=== PATIENT | female | born 1995 | race African-American/Black ===

== ENCOUNTER 2016-11-19 00:20 | Emergency (ER) | payer MEDICAID ==
[~2016-11-19] VITALS: Ht 175.3 cm; Wt 68.5 kg
[~2016-11-19 00:20] MED LIST: ADVAIR 250-501 EACH INH; ALBUTEROL2.5 MG/3 M INH; AZITHROMYCIN250 MG ORAL; BENADRYL50 MG ORAL; DILAUDID2 MG ORAL; DILAUDID4 MG ORAL; FOLIC ACID1 MG ORAL; GUIATUSS DM SY473 ML PO; IBUPROFEN800 MG ORAL; IMITREX50 MG ORAL; KEFLEX500 MG ORAL; LEVAQUIN500 MG ORAL; METHADONE HCL5 MG PO; NASONEX17 GM NASAL; NKM; NORCO 10-325 T1 EACH ORAL; VITAMIN B122500 MCG PO; VITAMIN D400 INTLU ORAL; ZOFRAN4 M1 ORAL; ZOLOFT100 MG ORAL
--- NOTE | 2016-11-19 00:53 | Emergency Room Report ---
History of Present Illness General Chief Complaint: Pain Source: Patient Present Illness HPI Patient presents with knee and body pain which is consistent with her being in sickle crisis. Pain started this morning. It is constant and also involves her back and other joints. Pain is 9/10, aching, not radiating. No trauma. No fevers. Took dilaudid 4 mg earlier with minimal relief. This is her usual sickle crisis pain. She feels dehydrated and feels fluids would help. She denies chest pain, dyspnea, productive cough, NVD, dysuria. She was last admitted August 2016 for similar symptoms. Unable to see her MD. Allergies: Coded Allergies: CODEINE (Verified Allergy, Severe, 07/05/16) Throat closes up and face swells, Spoke with patient has no allery to hydromorphone KETOROLAC (Verified Allergy, Severe, 07/05/16) Throat closes up and face swells Patient History Past Medical History: see triage record Social History: Denies: smoking Social History Narrative brought by MOM Last Menstrual Period: November Reviewed Nursing Documentation: PMH: Agreed, PSxH: Agreed Nursing Documentation-PMH Hx Cardiac Problems: Yes - sickle cell Hx Hypertension: No Hx Pacemaker: No Hx Asthma: Yes Hx COPD: No Hx Diabetes: No Hx Cancer: No Hx Gastrointestinal Problems: No Hx Dialysis: No Hx Neurological Problems: Yes Hx Cerebrovascular Accident: No Hx Transient Ischemic Attacks: Yes - 05/2016 Hx Dementia: No Hx Alzheimer's Disease: No Hx Parkinson's Disease: No Hx Meningitis: No Hx Encephalitis: No Hx Seizures: No Hx Epilepsy: No Hx Multiple Sclerosis: No Hx Cerebral Palsy: No Hx Amyotrophic Lat Sclerosis: No Hx Guillian-[place] Syndrome: No Hx Paralysis: No Hx Peripheral Neuropathy: No Hx Spinal Cord Injury: No Hx Head Trauma: No Hx Traumatic Brain Injury: No Hx Memory Loss: No Hx Concentration Difficulty: No Hx Tremors: No Hx Vertigo: No Hx Dizziness: No Hx Headaches: Yes Hx Weakness: Yes Review of Systems All Other Systems: negative except mentioned in HPI Physical Exam Vital Signs Date Time Temp Pulse Resp B/P Pulse Ox O2 Delivery O2 Flow Rate FiO2 11/19/16 00:29 98.2 77 16 107/63 95 Room Air Sp02 EP Interpretation: reviewed, normal General Appearance: well appearing, no apparent distress, GCS 15 Head: normocephalic Eyes: bilateral eye PERRL, bilateral eye scleral icterus ENT: moist mucus membranes Neck: supple Respiratory: lungs clear, normal breath sounds Cardiovascular #1: regular rate, rhythm Cardiovascular #2: 2+ radial (R) Gastrointestinal: normal inspection, normal bowel sounds, non tender, no mass, non-distended Musculoskeletal: back normal, gait/station normal, normal range of motion, other - no effusion or warmth L knee Neurologic: alert, oriented x3 Psychiatric: mood/affect normal Skin: warm/dry, pallor Medical Decision Making Diagnostic Impression: Primary Impression: Sickle cell crisis ER Course Patient presents with knee pain c/w sickle crisis. Ddx: sickle cell crisis, bone marrow failure, occult infection amongst others. Emergent evaluation with labs including retic and LDH, CXR. Treatment with IV hydration and analgesia. Labs with leukocytosis (usual), anemia (unchanged), increased retic and LDH. Patient better and wants to go home. I offered admission. Patient stable for outpatient observation and treatment. Laboratory Tests Test 11/19/16 01:03 11/19/16 02:40 Urine Color Pale yellow Urine Appearance Clear Urine pH 8 (4.5-8.0) Urine Specific [place] 1.010 (1.005-1.035) Urine Protein Negative (NEGATIVE) Urine Glucose (UA) Negative (NEGATIVE) Urine Ketones Negative (NEGATIVE) Urine Occult Blood 5+ (NEGATIVE) H Urine Nitrite Negative (NEGATIVE) Urine Bilirubin Negative (NEGATIVE) Urine Urobilinogen 1 MG/DL (0.0-1.0) H Urine Leukocyte Esterase 1+ (NEGATIVE) H Urine RBC 5-10 /HPF (0 - 2) H Urine WBC 2-4 /HPF (0 - 2) Urine Squamous Epithelial Cells Moderate /LPF (NONE/OCC) H Urine Bacteria Few /HPF (NONE) Urine HCG, Qualitative Negative Urine Opiates Screen Negative (NEGATIVE) Urine Barbiturates Screen Negative (NEGATIVE) Phencyclidine (PCP) Screen Negative (NEGATIVE) Urine Amphetamines Screen Negative (NEGATIVE) Urine Benzodiazepines Screen Negative (NEGATIVE) Urine Cocaine Screen Negative (NEGATIVE) Urine Marijuana (THC) Screen Positive (NEGATIVE) H White Blood Count 18.0 K/UL (4.8-10.8) H Red Blood Count 2.23 M/UL (4.20-5.40) L Hemoglobin 8.0 G/DL (12.0-16.0) L Hematocrit 22.1 % (37.0-47.0) L Mean Corpuscular Volume 99 FL (80-99) Mean Corpuscular Hemoglobin 35.8 PG (27.0-31.0) H Mean Corpuscular Hemoglobin Concent 36.1 G/DL (32.0-36.0) H Red Cell Distribution Width 18.7 % (11.6-14.8) H Platelet Count 305 K/UL (150-450) Mean Platelet Volume 6.2 FL (6.5-10.1) L Neutrophils (%) (Auto) % (45.0-75.0) Lymphocytes (%) (Auto) % (20.0-45.0) Monocytes (%) (Auto) % (1.0-10.0) Eosinophils (%) (Auto) % (0.0-3.0) Basophils (%) (Auto) % (0.0-2.0) Neutrophils % (Manual) Pending Lymphocytes % (Manual) Pending Platelet Estimate Pending Platelet Morphology Pending Reticulocyte Count 6.9 % (0.0-2.0) H Prothrombin Time 12.6 SEC (9.30-11.50) H Prothrombin Time INR 1.2 (0.9-1.1) H PTT 55 SEC (23-33) H Sodium Level 139 mEQ/L (135-145) Potassium Level 3.9 mEQ/L (3.4-4.9) Chloride Level 101 mEQ/L (98-107) Carbon Dioxide Level 25 mEQ/L (20-30) Anion Gap 13 (5-15) Blood Urea Nitrogen 9 mg/dL (7-23) Creatinine 0.4 mg/dL (0.5-0.9) L Estimate Glomerular Filtration Rate > 60 mL/min (>60) Glucose Level 103 mg/dL (74-106) Calcium Level 9.0 mg/dL (8.6-10.2) Total Bilirubin 2.4 mg/dL (0.0-1.2) H Direct Bilirubin 0.3 mg/dL (0.1-0.3) Aspartate Amino Transferase (AST) 47 U/L (5-40) H Alanine Aminotransferase (ALT) 42 U/L (3-33) H Alkaline Phosphatase 59 U/L (35-104) Lactate Dehydrogenase 316 U/L (135-230) H Total Protein 6.4 g/dL (6.6-8.7) L Albumin 4.2 g/dL (3.5-5.2) Globulin 2.2 g/dL Albumin/Globulin Ratio 1.9 (1.0-2.7) Lipase 38 U/L (< 60) Chest X-Ray Diagnostic Results EP Interpretation: Yes Findings: no consolidation, no effusion, no pneumothorax, other - portacath L Number of Views: 1 Last Vital Signs Date Time Temp Pulse Resp B/P Pulse Ox O2 Delivery O2 Flow Rate FiO2 11/19/16 04:50 98.4 80 19 105/71 100 Room Air Status: improved Disposition: HOME, SELF-CARE Condition: Improved Scripts Hydrocodone Bit/Acetaminophen 5-325* (NORCO 5-325*) 1 Each Tablet 1 TAB ORAL Q6H Y for For Pain, #10 TAB 0 Refills Prov: Steve Alejandre M.D. 11/19/16 Steve Alejandre M.D. Nov 19, 2016 00:53
[2016-11-19 01:00] VITALS: BP 110/66
[2016-11-19] MEDS ORDERED: HYDROmorphone 1mg/ml Carpuject IVP ONE ×2 (01:00→03:30)
[2016-11-19] MEDS ORDERED: DiphenhydrAMINE 50mg/ml Inj IVP ONE (01:00)
[2016-11-19 01:24] LABS: APPEARANCE,URINE CLEAR; KETONES,URINE NEGATIVE (NEGATIVE); LEUKOCYTE ESTERASE ,URINE 1+ (NEGATIVE); NITRITE,URINE NEGATIVE (NEGATIVE); PH,URINE 8 (4.5-8.0); PROTEIN,URINE NEGATIVE (NEGATIVE); UROBILINOGEN,URINE 1 MG/DL (0.0-1.0)
[2016-11-19 03:05] VITALS: BP 108/70
[2016-11-19 03:08] LABS: MEAN CORPUSCULAR HEMOGLOBIN 35.8 PG (27.0-31.0); MEAN CORPUSCULAR HGB CONC 36.1 G/DL (32.0-36.0); MEAN CORPUSCULAR VOLUME 99 FL (80-99); MEAN PLATELET VOLUME 6.2 FL (6.5-10.1); PLATELET COUNT 305 K/UL (150-450); RED BLOOD COUNT 2.23 M/UL (4.20-5.40); RED CELL DISTRIBUTION WIDTH 18.7 % (11.6-14.8)
[2016-11-19 03:26] LABS: INR 1.2 (0.9-1.1); PROTHROMBIN TIME 12.6 SEC (9.30-11.50)
[2016-11-19 03:29] LABS: BACTERIA,URINE FEW /HPF; SQUAMOUS EPITHELIAL CELL,UR MODERATE /LPF (NONE/OCC)
[2016-11-19 03:32] LABS: ALANINE AMINOTRANSFERASE 42 U/L (3-33); ALBUMIN/GLOBULIN RATIO 1.9 (1.0-2.7); ANION GAP 13 (5-15); ASPARTATE AMINO TRANSFERASE 47 U/L (5-40); CARBON DIOXIDE 25 mEQ/L (20-30); CHLORIDE 101 mEQ/L (98-107); CREATININE 0.4 mg/dL (0.5-0.9); GLOMERULAR FILTRATION RATE > 60 mL/min (>60); LACTATE DEHYDROGENASE 316 U/L (135-230); LIPASE 38 U/L (< 60); POTASSIUM 3.9 mEQ/L (3.4-4.9); SODIUM 139 mEQ/L (135-145); TOTAL PROTEIN 6.4 g/dL (6.6-8.7)
[2016-11-19 03:47] LABS: BILIRUBIN,DIRECT 0.3 mg/dL (0.1-0.3); HEMOLYSIS 11
[2016-11-19 04:27] LABS: RETICULOCYTE COUNT 6.9 % (0.0-2.0)
[2016-11-19] MEDS ORDERED: NORCO 5-325 TA1 EACH ORAL (04:36)
[2016-11-19 04:50] VITALS: BP 105/71
[2016-11-19 09:08] LABS: ANISOCYTOSIS 1+; BAND NEUTROPHILS % (MANUAL) 0 % (0-8); BASOPHILS % (MANUAL) 0 % (0-2); EOSINOPHILS % (MANUAL) 2 % (0-3); LYMPHOCYTES % (MANUAL) 35 % (20-45); NEUTROPHILS % (MANUAL) 57 % (45-75); PLATELET ESTIMATE ADEQUATE; PLATELET MORPHOLOGY NORMAL; TOTAL CELLS COUNTED 100
[2016-11-19 09:09] LABS: HYPOCHROMASIA 1+; SICKLE CELLS 1+
[2016-11-19 09:10] LABS: OVALOCYTES OCCASIONAL
[2016-11-19 09:11] LABS: POLYCHROMASIA OCCASIONAL
--- NOTE | 2016-11-19 10:48 | Diagnostic Imaging Report ---
Indication: Chest pain Technique: One view of the chest Comparison: 08/23/2016 Findings: Left chest port catheter is again demonstrated. Lungs and pleural space are clear. The heart size is upper limits normal. No significant change Impression: No acute process This agrees with the preliminary interpretation provided by the emergency room physician
[2016-11-22 11:17] LABS: OTHERS PATHOLOGIST COMMENT
[2016-12-21] MEDS ORDERED: MAGNESIUM OXID500 M2 PO (08:12)
== END 2016-11-19 04:50 | disposition home or self-care (01) ==
LOC: EMR 00:50
DX: D57.00 Hb-SS disease with crisis, unspecified (principal); Z88.6 Allergy status to analgesic agent; Z88.8 Allergy status to other drugs, medicaments and biological substances; J45.909 Unspecified asthma, uncomplicated; Z86.73 Personal history of transient ischemic attack (TIA), and cerebral infarction without residual deficits; R17 Unspecified jaundice
CPT/HCPCS: 36415; 71010; 80053; 80300; 81003; 81025; 82248; 83615; 83690; 85007; 85025; 85044; 85610; 85730; 96360; 96374; 96375; 99284; J1170; J1200; J2405

== ENCOUNTER 2016-11-29 16:00 | Emergency (ER) | payer MEDICAID ==
[~2016-11-29] VITALS: Ht 175.3 cm; Wt 68.0 kg
[~2016-11-29 16:00] MED LIST changes: +NORCO 5-325 TA1 EACH ORAL
[2016-11-29 16:21] VITALS: BP 114/62
[2016-11-29] MEDS ORDERED: HYDROmorphone 2 MG, DiphenhydrAMINE 25 MG in NS 55 ML IVPB ONE (16:30)
[2016-11-29] MEDS ORDERED: NS 55ml IV ONE (16:31)
[2016-11-29] MEDS ORDERED: DiphenhydrAMINE 50mg/ml Inj ONE (16:56)
[2016-11-29 16:59] LABS: BASOPHILS % (AUTO) 1.5 % (0.0-2.0); LYMPHOCYTES % (AUTO) 38.3 % (20.0-45.0); MEAN CORPUSCULAR HEMOGLOBIN 36.1 PG (27.0-31.0); MEAN CORPUSCULAR VOLUME 103 FL (80-99); MEAN PLATELET VOLUME 5.9 FL (6.5-10.1); MONOCYTES % (AUTO) 8.9 % (1.0-10.0); NEUTROPHILS % (AUTO) 50.3 % (45.0-75.0); PLATELET COUNT 330 K/UL (150-450); RED BLOOD COUNT 2.41 M/UL (4.20-5.40); RED CELL DISTRIBUTION WIDTH 19.3 % (11.6-14.8); WHITE BLOOD COUNT 14.5 K/UL (4.8-10.8)
[2016-11-29 17:13] LABS: ANION GAP 14 (5-15); CALCIUM 9.2 mg/dL (8.6-10.2); CARBON DIOXIDE 25 mEQ/L (20-30); CHLORIDE 103 mEQ/L (98-107); CREATININE 0.4 mg/dL (0.5-0.9); GLOMERULAR FILTRATION RATE > 60 mL/min (>60); HEMOLYSIS 9; POTASSIUM 4.1 mEQ/L (3.4-4.9); SODIUM 142 mEQ/L (135-145)
[2016-11-29] MEDS ORDERED: DiphenhydrAMINE 50mg/ml Inj IVP ONE (17:30)
[2016-11-29 18:44] LABS: RETICULOCYTE COUNT 5.3 % (0.0-2.0)
[2016-11-29 19:07] VITALS: BP 121/77
--- NOTE | 2016-12-01 07:03 | Emergency Room Report ---
History of Present Illness General Chief Complaint: Pain Source: Patient Present Illness HPI Patient presents with complaints of bodyache bilateral knee pain in line with her sickle cell crisis patient reports that she spoke to her Hemoccult just and was told to come to the emergency room As he was unable to see her in the office Patient has increased nausea Denies any vomiting or diarrhea denies any fevers chills pain is aching 03/14 patient reports previous history of sickle cell disease Allergies: Coded Allergies: CODEINE (Verified Allergy, Severe, 07/05/16) Throat closes up and face swells, Spoke with patient has no allery to hydromorphone KETOROLAC (Verified Allergy, Severe, 07/05/16) Throat closes up and face swells Patient History Past Medical History: see triage record Pertinent Family History: none Reviewed Nursing Documentation: PMH: Agreed, PSxH: Agreed Nursing Documentation-PMH Hx Cardiac Problems: Yes - sickle cell Hx Hypertension: No Hx Pacemaker: No Hx Asthma: Yes Hx COPD: No Hx Diabetes: No Hx Cancer: No Hx Gastrointestinal Problems: No Hx Dialysis: No Hx Neurological Problems: Yes Hx Cerebrovascular Accident: No Hx Transient Ischemic Attacks: Yes - 05/2016 Hx Dementia: No Hx Alzheimer's Disease: No Hx Parkinson's Disease: No Hx Meningitis: No Hx Encephalitis: No Hx Seizures: No Hx Epilepsy: No Hx Multiple Sclerosis: No Hx Cerebral Palsy: No Hx Amyotrophic Lat Sclerosis: No Hx Guillian-[place] Syndrome: No Hx Paralysis: No Hx Peripheral Neuropathy: No Hx Spinal Cord Injury: No Hx Head Trauma: No Hx Traumatic Brain Injury: No Hx Memory Loss: No Hx Concentration Difficulty: No Hx Tremors: No Hx Vertigo: No Hx Dizziness: No Hx Headaches: Yes Hx Weakness: Yes Review of Systems All Other Systems: negative except mentioned in HPI Physical Exam Vital Signs Date Time Temp Pulse Resp B/P Pulse Ox O2 Delivery O2 Flow Rate FiO2 11/29/16 16:11 98.1 86 20 114/62 96 Room Air Sp02 EP Interpretation: reviewed, normal General Appearance: well appearing, no apparent distress Head: normocephalic, atraumatic Eyes: bilateral eye EOMI, bilateral eye PERRL ENT: hearing grossly normal, normal pharynx, TMs + canals normal, uvula midline Neck: full range of motion, supple, no meningismus, no bony tend Respiratory: lungs clear, normal breath sounds, no rhonchi, no respiratory distress, no retraction, no accessory muscle use Cardiovascular #1: normal peripheral pulses, regular rate, rhythm, no edema, no gallop, no JVD, no murmur Gastrointestinal: normal bowel sounds, non tender, soft, no mass, no organomegaly, non-distended, no guarding, no hernia, no pulsatile mass, no rebound Genitourinary: no CVA tenderness Musculoskeletal: normal inspection Neurologic: oriented x3, responsive, garage helper III-XII nml as tested, motor strength/ tone normal, sensory intact Psychiatric: mood/affect normal Skin: normal color, no rash, warm/dry, palpation normal Lymphatic: normal inspection, no adenopathy Medical Decision Making Diagnostic Impression: Primary Impression: Sickle cell disease ER Course Multiple differentials considered, including but not limited to the my lysis sickle cell crisis, dehydration Patient's blood work shows improved findings compared to previous Patient had further hydration and pain and dressed Patient reports that she feels better and has follow up tomorrow with her her oncologist and is discharged for close outpatient followup Labs Test 11/29/16 16:30 White Blood Count 14.5 K/UL (4.8-10.8) Red Blood Count 2.41 M/UL (4.20-5.40) Hemoglobin 8.7 G/DL (12.0-16.0) Hematocrit 24.8 % (37.0-47.0) Mean Corpuscular Volume 103 FL (80-99) Mean Corpuscular Hemoglobin 36.1 PG (27.0-31.0) Mean Corpuscular Hemoglobin Concent 35.0 G/DL (32.0-36.0) Red Cell Distribution Width 19.3 % (11.6-14.8) Platelet Count 330 K/UL (150-450) Mean Platelet Volume 5.9 FL (6.5-10.1) Neutrophils (%) (Auto) 50.3 % (45.0-75.0) Lymphocytes (%) (Auto) 38.3 % (20.0-45.0) Monocytes (%) (Auto) 8.9 % (1.0-10.0) Eosinophils (%) (Auto) 1.0 % (0.0-3.0) Basophils (%) (Auto) 1.5 % (0.0-2.0) Reticulocyte Count 5.3 % (0.0-2.0) Sodium Level 142 mEQ/L (135-145) Potassium Level 4.1 mEQ/L (3.4-4.9) Chloride Level 103 mEQ/L (98-107) Carbon Dioxide Level 25 mEQ/L (20-30) Anion Gap 14 (5-15) Blood Urea Nitrogen 8 mg/dL (7-23) Creatinine 0.4 mg/dL (0.5-0.9) Estimat Glomerular Filtration Rate > 60 mL/min (>60) Glucose Level 76 mg/dL (74-106) Calcium Level 9.2 mg/dL (8.6-10.2) Last Vital Signs Date Time Temp Pulse Resp B/P Pulse Ox O2 Delivery O2 Flow Rate FiO2 11/29/16 19:07 98.1 81 20 121/77 100 Room Air Status: improved Disposition: HOME, SELF-CARE Condition: Improved Referrals: LEONARDO TELLO (PCP) Patient Instructions: Sickle Cell Anemia, Adult Additional Instructions: Patient is provided with the discharge instructions notified to follow up with primary doctor in the next 2-3 days otherwise return to the er with any worsening symptoms. Please note that this report is being documented using [employer] technology. This can lead to erroneous entry secondary to incorrect interpretation by the dictating instrument. TAYLOR PARSONS D.O. Dec 01, 2016 07:03
[2016-12-21] MEDS ORDERED: MAGNESIUM OXID500 M2 PO (08:12)
== END 2016-11-29 19:15 | disposition home or self-care (01) ==
LOC: EMR 16:30
DX: D57.00 Hb-SS disease with crisis, unspecified (principal); Z88.6 Allergy status to analgesic agent; J45.909 Unspecified asthma, uncomplicated; Z86.73 Personal history of transient ischemic attack (TIA), and cerebral infarction without residual deficits
CPT/HCPCS: 36415; 80048; 85025; 85044; 96374; 96375; 99284; J1170; J1200

== ENCOUNTER 2016-12-16 01:21 | Inpatient (IN) | payer MEDICAID ==
[~2016-12-16] VITALS: Ht 175.3 cm; Wt 69.9 kg
[2016-12-16] VITALS (7 sets, daily range): BP systolic 101–120; BP diastolic 51–77
[2016-12-16] MEDS ORDERED: HYDROmorphone 1 MG, DiphenhydrAMINE 25 MG in NS 55 ML IV ONE (01:30)
[2016-12-16] MEDS ORDERED: DiphenhydrAMINE 50mg/ml Inj ONE ×2 (01:58→03:14)
[2016-12-16] MEDS ORDERED: HYDROmorphone 1mg/ml Carpuject ONE ×2 (01:58→03:14)
[2016-12-16 02:26] LABS: MEAN CORPUSCULAR HGB CONC 34.7 G/DL (32.0-36.0); MEAN CORPUSCULAR VOLUME 107 FL (80-99); MEAN PLATELET VOLUME 6.2 FL (6.5-10.1); PLATELET COUNT 359 K/UL (150-450); RED CELL DISTRIBUTION WIDTH 20.2 % (11.6-14.8); WHITE BLOOD COUNT 18.9 K/UL (4.8-10.8)
[2016-12-16 02:37] LABS: ALANINE AMINOTRANSFERASE 37 U/L (3-33); ALBUMIN/GLOBULIN RATIO 1.5 (1.0-2.7); ANION GAP 13 (5-15); ASPARTATE AMINO TRANSFERASE 45 U/L (5-40); CALCIUM 8.9 mg/dL (8.6-10.2); CARBON DIOXIDE 24 mEQ/L (20-30); CHLORIDE 102 mEQ/L (98-107); CREATININE 0.4 mg/dL (0.5-0.9); GLOMERULAR FILTRATION RATE > 60 mL/min (>60); HEMOLYSIS 16; POTASSIUM 4.4 mEQ/L (3.4-4.9); SODIUM 139 mEQ/L (135-145); TOTAL PROTEIN 6.7 g/dL (6.6-8.7)
[2016-12-16] MEDS ORDERED: cefOXitin 2gm Inj IVP SCH (02:45)
[2016-12-16] MEDS ORDERED: Albuterol ud Inhalation HHN ONE (02:45)
[2016-12-16] MEDS ORDERED: Azithromycin 500 MG in NS 275 ML IV ONE (02:45)
[2016-12-16] MEDS ORDERED: Azithromycin Inj IV ONE (02:48)
[2016-12-16] MEDS ORDERED: cefOXitin Sod 2 GM in D5W 110 ML IVPB STA (02:54)
[2016-12-16] MEDS ORDERED: HYDROmorphone 2 MG, DiphenhydrAMINE 25 MG in NS 55 ML IVPB ONE (03:00)
[2016-12-16 03:07] LABS: BILIRUBIN,DIRECT 0.4 mg/dL (0.1-0.3)
[2016-12-16 03:31] LABS: RETICULOCYTE COUNT 9.7 % (0.0-2.0)
--- NOTE | 2016-12-16 03:39 | Emergency Room Report ---
History of Present Illness General Chief Complaint: Pain Source: Patient Present Illness HPI 21YOF with known SCD presents with 2-3 days subjective fever/chills, cough, chest pain. Compliant with medication. Not taking anything for cough. No foreign travel or sick contacts No other joint pain. Allergies: Coded Allergies: CODEINE (Verified Allergy, Severe, 07/05/16) Throat closes up and face swells, Spoke with patient has no allery to hydromorphone KETOROLAC (Verified Allergy, Severe, 07/05/16) Throat closes up and face swells Patient History Past Medical History: other - sickle cell disease Past Surgical History: none Pertinent Family History: none Social History: Denies: alcohol use, drug use, smoking Last Menstrual Period: 12/13/16 Now: No Immunizations: UTD Reviewed Nursing Documentation: PMH: Agreed, PSxH: Agreed Nursing Documentation-PMH Hx Cardiac Problems: Yes - sickle cell Hx Hypertension: No - enlarged heart, heart murmur, TIA Hx Pacemaker: No Hx Asthma: Yes Hx COPD: No Hx Diabetes: No Hx Cancer: No Hx Gastrointestinal Problems: No Hx Dialysis: No Hx Neurological Problems: Yes Hx Cerebrovascular Accident: No Hx Transient Ischemic Attacks: Yes - 05/2016 Hx Dementia: No Hx Alzheimer's Disease: No Hx Parkinson's Disease: No Hx Meningitis: No Hx Encephalitis: No Hx Seizures: No Hx Epilepsy: No Hx Multiple Sclerosis: No Hx Cerebral Palsy: No Hx Amyotrophic Lat Sclerosis: No Hx Guillian-[place] Syndrome: No Hx Paralysis: No Hx Peripheral Neuropathy: No Hx Spinal Cord Injury: No Hx Head Trauma: No Hx Traumatic Brain Injury: No Hx Memory Loss: No Hx Concentration Difficulty: No Hx Tremors: No Hx Vertigo: No Hx Dizziness: No Hx Headaches: Yes Hx Weakness: Yes Review of Systems All Other Systems: negative except mentioned in HPI Physical Exam Vital Signs Date Time Temp Pulse Resp B/P Pulse Ox O2 Delivery O2 Flow Rate FiO2 12/16/16 01:27 98.4 80 26 125/46 94 Room Air 12/16/16 02:17 5.0 Sp02 EP Interpretation: reviewed, normal General Appearance: normal inspection, well appearing, no apparent distress, alert, GCS 15, non-toxic, mild distress, other - Coughing, shaking in stretcher Head: normocephalic, atraumatic Eyes: bilateral eye EOMI, bilateral eye PERRL ENT: normal ENT inspection, hearing grossly normal, normal voice Neck: normal inspection, full range of motion, supple, no bony tend Respiratory: normal inspection, lungs clear, normal breath sounds, no rhonchi, no respiratory distress, no retraction, no accessory muscle use, wheezing Cardiovascular #1: regular rate, rhythm, no edema Gastrointestinal: normal inspection, normal bowel sounds, non tender, soft, no guarding, no hernia Genitourinary: no CVA tenderness Musculoskeletal: normal inspection, back normal, normal range of motion, Ignacio' s Sign negative Neurologic: normal inspection, alert, oriented x3, responsive, ammonia solution preparer III-XII nml as tested, DTRs symmetric, speech normal Psychiatric: normal inspection, judgement/insight normal, mood/affect normal Skin: normal inspection, normal color, no rash Lymphatic: normal inspection Medical Decision Making Diagnostic Impression: Primary Impression: Sickle cell anemia with pain ER Course 21YOF with cough, SOB, and subjective fevers at home. Concern for acute chest syndrome, PNA Labs: Leuks 18K, increase from previous. H&H stable. Retic count c/w previous. Elevated LFTs also seen previously. CXR: No obvious lobar PNA Blood Cx pending Empiric Cefox/Azithromycin given in ED Albuterol given for cough Required repeated analgesia. My threshold for sickle cell patients and narcotics given in ED is 2 doses. Patient exceeded this demand and thus requires admission. PMD is Dr Soto. Dr Metz admits for Dr Soto in ED. Was endorses for med/ surg admission at 345am. Rhythm Strip Diag. Results EP Interpretation: yes Rate: 77 Rhythm: NSR, no PVC's Chest X-Ray Diagnostic Results EP Interpretation: Yes Findings: no consolidation, no effusion, no pneumothorax, no acute cardiopulmonary disease Number of Views: 1 Last Vital Signs Date Time Temp Pulse Resp B/P Pulse Ox O2 Delivery O2 Flow Rate FiO2 12/16/16 03:24 76 17 100 Room Air 12/16/16 03:14 5.0 12/16/16 02:43 98.5 12/16/16 02:17 108/61 Referrals: LILIAM GUIDRY M.D. (PCP) DEJAN CHAN M.D. Dec 16, 2016 03:39
[2016-12-16] MEDS ORDERED: advair INH (05:50)
[2016-12-16] MEDS ORDERED: LORazepam Inj 2mg/ml 1ml IV PRN (07:15)
[2016-12-16] MEDS ORDERED: Zolpidem 5mg tab ORAL PRN (07:15)
[2016-12-16] MEDS ORDERED: Miralax 17gm pkt ORAL PRN (07:15)
[2016-12-16] MEDS ORDERED: Mylanta II UD 30ml ORAL PRN (07:15)
[2016-12-16] MEDS: DiphenhydrAMINE 50mg/ml Inj IVP PRN ×4 (08:41→23:59)
[2016-12-16] MEDS: Sertraline 100mg tab ORAL SCH (08:41)
[2016-12-16] MEDS: Heparin 5000 units/ml inj SUBQ SCH ×2 (08:48→20:38)
[2016-12-16] MEDS: HYDROmorphone 4mg tab ORAL SCH ×5 (08:57→20:00)
--- NOTE | 2016-12-16 10:47 | Diagnostic Imaging Report ---
Indication: SOB Technique: One view of the chest Comparison: 11/19/2016 Findings: Left chest port catheter is again demonstrated. Lungs and pleural spaces remain clear. The heart size is normal. Impression: No acute process
--- NOTE | 2016-12-16 12:48 | Consultation ---
History of Present Illness General Date patient seen: Dec 16, 2016 Chief Complaint: Pain Referring physician: Dr. triplett Reason for Consultation: dyspnea Present Illness HPI 21 year old female with hx of sickle cell disease, recurrent hospitalization presents with 2-3 days of subjective fever/chills, cough, chest pain. Compliant with medication. she has greenish phlegm. Her CXR was negative. Allergies: Coded Allergies: CODEINE (Verified Allergy, Severe, 07/05/16) Throat closes up and face swells, Spoke with patient has no allery to hydromorphone KETOROLAC (Verified Allergy, Severe, 07/05/16) Throat closes up and face swells Medication History Scheduled Cyanocobalamin (Vitamin B-12) (Vitamin B12), 2,500 MCG PO DAILY, (Reported) Folic Acid* (Folic Acid*), 1 MG ORAL DAILY, (Reported) Hydromorphone HCl (Dilaudid), 4 MG ORAL Q4H, (Reported) Ibuprofen* (Motrin*), 800 MG ORAL Q8H, (Reported) Methadone Hcl* (Methadone*), 5 MG PO BID, (Reported) Mometasone Furoate (Nasonex), Unknown Dose NASAL DAILY, (Reported) Sertraline Hcl* (Zoloft*), 100 MG ORAL DAILY, (Reported) Sumatriptan Succinate* (Imitrex*), Unknown Dose ORAL DAILY PRN MIGRAINE, ( Reported) Vitamin D (Vitamin D3), 400 UNITS ORAL DAILY, (Reported) [advair], INH BID, (Reported) Scheduled PRN Albuterol Sulfate* (Albuterol Sulfate Hhn*), Unknown Dose INH Q4H PRN for Shortness of Breath, (Reported) Diphenhydramine HCl (Diphenhydramine HCl), 50 MG ORAL Q6H PRN for Itching, ( Reported) Ondansetron (Zofran), 4 MG ORAL Q6H PRN for Nausea & Vomiting, (Reported) Discontinued Medications Hydrocodone Bit/Acetaminophen 5-325* ([place] 5-325*), 1 TAB ORAL Q6H PRN for For Pain Discontinued Reason: Therapy completed Methadone Hcl* (Methadone*), 2 MG PO QHS, (Reported) Discontinued Reason: Medication dose changed Patient History Healthcare decision maker Resuscitation status Full Code Advanced Directive on File No Past Medical/Surgical History Past Medical/Surgical History: (1) Sickle cell disease (2) Intractable pain Review of Systems Respiratory: Reports: cough Physical Exam General Appearance: WD/WN, no apparent distress Lines, tubes and drains: peripheral HEENT: normocephalic, atraumatic Neck: non-tender, normal alignment Respiratory/Chest: chest wall non-tender, lungs clear Cardiovascular/Chest: normal peripheral pulses, normal rate Abdomen: normal bowel sounds, non tender Genitourinary/Rectal: normal genital exam Extremities: normal range of motion Skin Exam: normal pigmentation Last 24 Hour Vital Signs Date Time Temp Pulse Resp B/P Pulse Ox O2 Delivery O2 Flow Rate FiO2 12/16/16 08:00 97.9 74 18 110/77 Room Air 12/16/16 05:10 98.1 70 19 106/51 94 Room Air 12/16/16 04:43 98.1 76 17 101/51 95 Room Air 12/16/16 04:43 76 17 101/51 95 Room Air 12/16/16 03:50 98.5 12/16/16 03:24 76 17 100 Room Air 12/16/16 03:14 75 17 98 Simple Mask 5.0 12/16/16 03:13 75 17 Simple Mask 5.0 12/16/16 02:43 98.5 12/16/16 02:17 71 19 108/61 98 Simple Mask 5.0 12/16/16 01:27 98.4 80 26 125/46 94 Room Air Intake and Output 12/15/16 12/16/16 19:00 07:00 Intake Total 223.0 ml Balance 223.0 ml Intake IV Total 223.0 ml # Voids 1 Laboratory Tests Test 12/16/16 02:10 White Blood Count 18.9 K/UL (4.8-10.8) H Red Blood Count 2.50 M/UL (4.20-5.40) L Hemoglobin 9.2 G/DL (12.0-16.0) L Hematocrit 26.6 % (37.0-47.0) L Mean Corpuscular Volume 107 FL (80-99) H Mean Corpuscular Hemoglobin 37.0 PG (27.0-31.0) H Mean Corpuscular Hemoglobin Concent 34.7 G/DL (32.0-36.0) Red Cell Distribution Width 20.2 % (11.6-14.8) H Platelet Count 359 K/UL (150-450) Mean Platelet Volume 6.2 FL (6.5-10.1) L Neutrophils (%) (Auto) % (45.0-75.0) Lymphocytes (%) (Auto) % (20.0-45.0) Monocytes (%) (Auto) % (1.0-10.0) Eosinophils (%) (Auto) % (0.0-3.0) Basophils (%) (Auto) % (0.0-2.0) Reticulocyte Count 9.7 % (0.0-2.0) H Sodium Level 139 mEQ/L (135-145) Potassium Level 4.4 mEQ/L (3.4-4.9) Chloride Level 102 mEQ/L (98-107) Carbon Dioxide Level 24 mEQ/L (20-30) Anion Gap 13 (5-15) Blood Urea Nitrogen 7 mg/dL (7-23) Creatinine 0.4 mg/dL (0.5-0.9) L Estimat Glomerular Filtration Rate > 60 mL/min (>60) Glucose Level 131 mg/dL (74-106) H Calcium Level 8.9 mg/dL (8.6-10.2) Total Bilirubin 3.0 mg/dL (0.0-1.2) H Direct Bilirubin 0.4 mg/dL (0.1-0.3) H Aspartate Amino Transf (AST/SGOT) 45 U/L (5-40) H Alanine Aminotransferase (ALT/SGPT) 37 U/L (3-33) H Alkaline Phosphatase 64 U/L (35-104) Total Protein 6.7 g/dL (6.6-8.7) Albumin 4.1 g/dL (3.5-5.2) Globulin 2.6 g/dL Albumin/Globulin Ratio 1.5 (1.0-2.7) Height (Feet): 5 Height (Inches): 9.00 Weight (Pounds): 154 Medications Current Medications Medications (Trade) Dose Ordered Sig/Mando Route PRN Reason Start Time Stop Time Status Last Admin Dose Admin Acetaminophen (Tylenol) 650 mg Q4H PRN ORAL fever 12/16/16 07:15 01/15/17 07:14 Al Hydroxide/Mg Hydroxide (Mylanta II) 30 ml Q6H PRN ORAL dyspepsia 12/16/16 07:15 01/15/17 07:14 Dextrose (Dextrose 50%) STAT PRN IV Hypoglycemia 12/16/16 07:15 01/15/17 07:14 Diphenhydramine HCl 50 mg 50 mg Q4H PRN IVP Itching 12/16/16 08:30 01/15/17 08:29 12/16/16 08:41 Folic Acid (Folate) 1 mg DAILY ORAL 12/16/16 09:00 01/15/17 08:59 12/16/16 08:41 Heparin Sodium (Porcine) (Heparin 5000 units/ml) 5,000 units EVERY 12 HOURS SUBQ 12/16/16 09:00 01/15/17 08:59 12/16/16 08:48 Hydromorphone HCl (Dilaudid) 2 mg Q4H PRN IV pain 4-6 12/16/16 07:15 12/23/16 07:14 Hydromorphone HCl (Dilaudid) 4 mg Q4H ORAL 12/16/16 08:00 12/23/16 07:59 12/16/16 08:57 Hydromorphone HCl 3 mg 3 mg Q3H PRN IVP For Pain 7-10 12/16/16 07:15 12/23/16 07:14 12/16/16 11:39 Lorazepam (Ativan 2mg/ml 1ml) 0.5 mg Q4H PRN IV For Anxiety 12/16/16 07:15 12/23/16 07:14 Methadone HCl (Methadone HCl) 5 mg BID ORAL 12/16/16 09:00 12/23/16 08:59 12/16/16 08:41 Ondansetron HCl (Zofran) 4 mg Q6H PRN IVP Nausea & Vomiting 12/16/16 07:15 01/15/17 07:14 12/16/16 12:15 Piperacillin Sod/ Tazobactam Sod/ Sodium Chloride (Zosyn/Sodium Chloride) 100 ml @ 200 mls/hr EVERY 6 HOURS IVPB 12/16/16 18:00 12/23/16 17:59 UNV Polyethylene Glycol (Miralax) 17 gm HSPRN PRN ORAL Constipation 4/13/17 07:15 01/15/17 07:14 Sertraline HCl (Zoloft) 100 mg DAILY ORAL 12/16/16 09:00 01/15/17 08:59 12/16/16 08:41 Sodium Chloride (0.45% NS 1000ml) 1,000 ml @ 75 mls/hr [id number] IV 12/16/16 08:00 01/15/17 07:59 12/16/16 07:51 Zolpidem Tartrate (Ambien) 5 mg HSPRN PRN ORAL Insomnia 12/16/16 07:15 01/15/17 07:14 Assessment/Plan Problem List: (1) Bronchitis ICD Codes: J40 - Bronchitis, not specified as acute or chronic SNOMED: 71659874 (2) Upper respiratory infection ICD Codes: J06.9 - Acute upper respiratory infection, unspecified SNOMED: 14099156 (3) Sickle cell disease ICD Codes: D57.1 - Sickle-cell disease without crisis SNOMED: 260531218 Assessment/Plan IV antibiotics check sputum IV fluids JAVID BARNEY Dec 16, 2016 12:48
--- NOTE | 2016-12-16 15:40 | Consultation ---
Consult Note Assessment/Plan ID Dic # [id number] A: The patient is a 21-year-old female with leukocytosis improved hx of fever Chest x-ray NPAD Ch Abnl LFT hep B and C : neg HIV neg sickle cell crisis. Hx of cholecystectomy. Sickle cell disease. Bipolar disorder. Depression. Anemia. [id number] ( placed four years ago ) PLAN: patient on Zosyn d# 1 Blood cultures x2. Urine Cx : P Monitor chest x-ray. DORIAN ZEE M.D. Dec 16, 2016 15:40
--- NOTE | 2016-12-16 19:18 | History & Physical ---
History and Physical History & Physicial Dictated for Int Med-Dr eMtz no. [id number]. CURTIS PARRISH Dec 16, 2016 19:18
--- NOTE | 2016-12-16 21:38 | Consultation ---
DATE OF CONSULTATION: 12/16/2016 INFECTIOUS DISEASE CONSULTATION CONSULTING PHYSICIAN: Yobany Trejo M.D. REFERRING PHYSICIAN: Scar Metz M.D. REASON FOR CONSULTATION: Evaluation of the patient for fever, leukocytosis, and antibiotic management. HISTORY OF PRESENT ILLNESS: The patient is a 21-year-old female with medical problems who is well known to our service from prior admission. The patient has a history of sickle cell disease and was admitted to this medical center due to increasing pain, subjective fever, and chest discomfort. The patient was found to have leukocytosis over 18,000 that has increased prior baseline white blood cells. The patient overall at the time of evaluation, was poor historian, however, she has been receiving pain medications. The patient was started on IV Zosyn. Infectious Diseases consultation was requested for further evaluation of the patient's antibiotic management. PAST MEDICAL HISTORY: 1. History of sickle cell disease. 2. History of left upper chest Disla catheter was placed 4 years ago. 3. History of chronic abnormal liver function tests with negative hepatitis B and C serology. 4. History of cholecystectomy. 5. History of bipolar disorder. 6. History of depression. 7. Anemia. ALLERGIES: Codeine. MEDICATIONS: Intravenous Zosyn. FAMILY HISTORY: Noncontributory. REVIEW OF SYSTEMS: Limited. Much of the information I was able to gather as mentioned above. PHYSICAL EXAMINATION: VITAL SIGNS: Temperature 96.6 degrees, blood pressure 130/74, pulse 86, and respiratory rate 18. HEENT: Mild pale conjunctivae. No icterus. NECK: Supple. CHEST: Coarse breathing sounds. HEART: S1 and S2. ABDOMEN: Soft and nontender. EXTREMITIES: No cyanosis. NEUROLOGICAL: Awake and lethargic. LABORATORY DATA: WBC of 18.9, hemoglobin 9.2, and platelets 259,000. UA, 5 to 10 white blood cells. BUN 7 and creatinine 0.4. AST 45, ALT 37, and alkaline phosphatase within normal range. Blood culture is pending. Chest x-ray, no acute process. ASSESSMENT: The patient is a 21-year-old female with multiple medical problems as mentioned above, who was been admitted to this medical center with subjective generalized pain and chest discomfort. The patient had leukocytosis most likely due to sickle cell crisis. The patient has a history of subjective fever. Since the hospitalization, the patient overall has been unremarkable. The patient also have abnormal liver function tests, which is chronic. At this time, the patient may benefit from empiric antibiotic treatment while the cultures are pending. If the patient stays afebrile, cautiously may be recommend 24 to 48 hours antibiotic treatment. PLAN: 1. The patient is on IV Zosyn for now. 2. Monitor CBC. 3. Monitor BMP. 4. Monitor chest x-ray. 5. Monitor cultures (blood and urine). 6. We will follow the patient's clinical course and labs and will do further recommendation. Thank you, Dr. Beck, for allowing me to participate in the care of this patient. I will follow the patient with you during this hospitalization. Yobany Trejo M.D. DR: BENITEZ JOB#: [id number] CC:
--- NOTE | 2016-12-16 23:58 | History and Physical Report ---
DATE OF ADMISSION: 12/16/2016 CHIEF COMPLAINT: The patient is a 21-year-old female who presents with chief complaint of fever and chills. 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 The patient is followed in outpatient by Dr. Jt Bellamy. The patient states she has two to three-day history of subjective fevers and chills. The patient complains of cough. The patient also complains of pleuritic chest pain. The patient presented to [facility]. The patient was admitted for cough to rule out pneumonia. REVIEW OF SYSTEMS: Constitutional: The patient denies complains of subjective fevers and chills as above. The patient denies weight loss or weight gain. HEENT: The patient denies ear or throat pain. The patient denies headache. Cardiovascular: The patient complains of pleuritic chest pain as above. The patient denies palpitations. Chest: The patient complains of cough as above. The patient denies wheezes. Abdomen: The patient denies nausea, vomiting, diarrhea, or constipation. Genitourinary: The patient denies dysuria or frequency of urination. Neuromuscular: The patient denies seizure or generalized weakness. PAST MEDICAL HISTORY: Significant for sickle cell disease. She has history of cerebrovascular accident. PAST SURGICAL HISTORY: The patient denies. CURRENT MEDICATIONS: 1. Albuterol metered-dose inhaler two puffs p.o. q.i.d. p.r.n. 2. Vitamin B12 2500 mcg daily. 3. Benadryl 50 mg one tablet p.o. every six hours. 4. Folic acid 1 mg one tablet p.o. daily. 5. Dilaudid 4 mg one tablet p.o. every four hours. 6. Ibuprofen 800 mg one tablet p.o. q.8 h. 7. Methadone 5 mg one tablet p.o. twice daily. 8. Zofran 4 mg p.o. every six hours p.r.n. 9. Zoloft 100 mg one tablet p.o. daily. 10. Imitrex 50 mg one tablet p.o. daily p.r.n. migraine. 11. Vitamin D 400 units p.o. daily. 12. Advair 250/50 one puff p.o. twice daily. ALLERGIES: To codeine and Toradol. SOCIAL HISTORY: The patient is single and is disabled. The patient denies tobacco or alcohol use. PHYSICAL EXAMINATION: VITAL SIGNS: Temperature 98.1 to 98.6, respirations 17 to 18, pulse 70 to 76, and blood pressure 101 to 110 over 51 to 75. GENERAL: The patient is a well-developed and well-nourished female, in no apparent distress. HEENT: Eyes, pupils are equal and responsive to light and accommodation. Extraocular movements are intact. NECK: Supple without lymphadenopathy. CHEST: Lungs are clear to auscultation bilaterally without wheezes or rales. CARDIOVASCULAR: Regular rate. S1 and S2 normal without murmurs, rubs, or gallops. ABDOMEN: Soft, nontender, nondistended. Positive bowel sounds. No evidence of hepatosplenomegaly. Currently, no rebound or guarding noted. EXTREMITIES: Negative for clubbing, cyanosis, or edema. RECTAL/GENITAL: Refused. NEUROLOGIC: Cranial nerves II through XII grossly intact without focal deficits. Motor strength is 5/5 bilaterally. Deep tendon reflexes are 2+ plantar. LABORATORY STUDIES: WBC 18.9, hemoglobin 9.2, hematocrit 26.6, and platelets 259,000. Sodium 139, potassium 4.4, chloride 102, CO2 24, BUN 7, and creatinine 0.4. Glucose 131. Chest x-ray was reported as no acute disease. ASSESSMENT: This is a 21-year-old female with: 1. Cough. 2. Fever. 3. Leukocytosis. 4. Sickle cell disease. 5. History of cerebrovascular disease. TREATMENT: 1. Cough/fever/leukocytosis. Infectious disease consultation is obtained with Dr. Trejo. Blood and sputum cultures are pending. Urine cultures are pending. The patient has been started empirically on azithromycin and Zosyn. The patient has also been started on cefoxitin. 2. Sickle cell disease. The patient is currently receiving pain management with intravenous Dilaudid. We will follow recommendations of pain management. 3. History of cerebrovascular accident. Fermín Nunez M.D. DR: JENNA JOB#: [id number] CC:
[2016-12-17 00:28] VITALS: BP 109/66
[2016-12-17 04:00] VITALS: BP 108/63
[2016-12-17] MEDS: HYDROmorphone 4mg tab ORAL SCH ×3 (04:00→08:00)
[2016-12-17 06:35] LABS: MEAN CORPUSCULAR HEMOGLOBIN 36.6 PG (27.0-31.0); MEAN CORPUSCULAR HGB CONC 34.6 G/DL (32.0-36.0); MEAN CORPUSCULAR VOLUME 106 FL (80-99); MEAN PLATELET VOLUME 6.1 FL (6.5-10.1); PLATELET COUNT 322 K/UL (150-450); RED BLOOD COUNT 2.16 M/UL (4.20-5.40); RED CELL DISTRIBUTION WIDTH 22.6 % (11.6-14.8); WHITE BLOOD COUNT 14.2 K/UL (4.8-10.8)
[2016-12-17] MEDS: DiphenhydrAMINE 50mg/ml Inj IVP PRN ×2 (06:40→15:09)
[2016-12-17 06:43] LABS: MAGNESIUM 1.5 mg/dL (1.7-2.5)
[2016-12-17 06:47] LABS: ALANINE AMINOTRANSFERASE 37 U/L (3-33); ALBUMIN/GLOBULIN RATIO 1.3 (1.0-2.7); ANION GAP 11 (5-15); ASPARTATE AMINO TRANSFERASE 49 U/L (5-40); CALCIUM 8.8 mg/dL (8.6-10.2); CARBON DIOXIDE 25 mEQ/L (20-30); CHLORIDE 105 mEQ/L (98-107); CREATININE 0.4 mg/dL (0.5-0.9); GLOMERULAR FILTRATION RATE > 60 mL/min (>60); HEMOLYSIS 17; POTASSIUM 4.6 mEQ/L (3.4-4.9); SODIUM 141 mEQ/L (135-145); TOTAL PROTEIN 6.4 g/dL (6.6-8.7)
[2016-12-17 06:56] LABS: LACTATE DEHYDROGENASE 391 U/L (135-230)
--- NOTE | 2016-12-17 07:47 | Pulmonology Progress Note ---
Assessment/Plan Assessment/Plan ASSESSMENT bronchitis URI sickle cell disease, possible sickle cell crisis anemia elevated transaminase ( chronic) hypomagnesemia PLAN OF CARE MS floor IVF O2 HHN prn sputum cx empiric abx antitussive prn CXR negative pain management monitor HH. goal to keep Hgb above 7 check LDH monitor LFT , elevated LFT likely 2 to increased hemolysis ( chronic) replace Mg nutritional support case discussed and evaluated by supervising physician Subjective Allergies: Coded Allergies: CODEINE (Verified Allergy, Severe, 07/05/16) Throat closes up and face swells, Spoke with patient has no allery to hydromorphone KETOROLAC (Verified Allergy, Severe, 07/05/16) Throat closes up and face swells Subjective leukocytosis trending down, afebrile on RA sat stable denies SOB, chest pain, cough HH trending down Objective Last 24 Hour Vital Signs Date Time Temp Pulse Resp B/P Pulse Ox O2 Delivery O2 Flow Rate FiO2 12/17/16 07:11 97.6 12/17/16 04:00 97.6 71 18 108/63 93 Room Air 12/17/16 00:59 97.8 12/17/16 00:28 97.8 70 19 109/66 94 Room Air 12/16/16 20:00 98.2 68 18 110/60 93 Room Air 12/16/16 16:00 97.5 72 17 120/71 94 Room Air 12/16/16 12:00 96.6 74 18 113/75 95 Room Air 12/16/16 08:00 97.9 74 18 110/77 91 Room Air Intake and Output 12/16/16 12/17/16 19:00 07:00 Intake Total 1145 ml 595 ml Balance 1145 ml 595 ml Intake Oral 420 ml 120 ml IV Total 725 ml 475 ml # Voids 2 General Appearance: WD/WN, no acute distress, other - A/A/O x 3 female HEENT: normocephalic, atraumatic, anicteric, mucous membranes moist Respiratory/Chest: lungs clear - with mdoerate air entry , no respiratory distress, no accessory muscle use Cardiovascular: normal rate, regular rhythm Abdomen: normal bowel sounds, soft, non tender, non distended Genitourinary: normal external genitalia Extremities: no edema, pedal pulses normal Neurologic/Psychiatric: no motor/sensory deficits, alert, oriented x 3, responsive Musculoskeletal: normal muscle bulk Microbiology Date/Time Source Procedure Growth Status 12/16/16 13:23 Sputum Gram Stain Pending Resulted 12/16/16 13:23 Sputum Sputum Culture - Preliminary Resulted Laboratory Tests 12/17/16 05:30: White Blood Count 14.2H, Red Blood Count 2.16L, Hemoglobin 7.9L, Hematocrit 22.8L, Mean Corpuscular Volume 106H, Mean Corpuscular Hemoglobin 36.6H, Mean Corpuscular Hemoglobin Concent 34.6, Red Cell Distribution Width 22.6H, Platelet Count 322, Mean Platelet Volume 6.1L, Neutrophils (%) (Auto) , Lymphocytes (%) (Auto) , Monocytes (%) (Auto) , Eosinophils (%) (Auto) , Basophils (%) (Auto) , Neutrophils % (Manual) [Pending], Lymphocytes % (Manual) [Pending], Platelet Estimate [Pending], Platelet Morphology [Pending], Sodium Level 141, Potassium Level 4.6, Chloride Level 105, Carbon Dioxide Level 25, Anion Gap 11, Blood Urea Nitrogen 5L, Creatinine 0.4L, Estimat Glomerular Filtration Rate > 60, Glucose Level 92, Calcium Level 8.8, Phosphorus Level 4.0 , Magnesium Level 1.5L, Total Bilirubin 3.1H, Direct Bilirubin 0.4H, Aspartate Amino Transf (AST/SGOT) 49H, Alanine Aminotransferase (ALT/SGPT) 37H, Alkaline Phosphatase 59, Lactate Dehydrogenase 391H, Total Protein 6.4L, Albumin 3.7, Globulin 2.7, Albumin/Globulin Ratio 1.3 Current Medications Medications (Trade) Dose Ordered Sig/Mando Route PRN Reason Start Time Stop Time Status Last Admin Dose Admin Acetaminophen (Tylenol) 650 mg Q4H PRN ORAL fever 12/16/16 07:15 01/15/17 07:14 Al Hydroxide/Mg Hydroxide (Mylanta II) 30 ml Q6H PRN ORAL dyspepsia 12/16/16 07:15 01/15/17 07:14 Dextrose (Dextrose 50%) STAT PRN IV Hypoglycemia 12/16/16 07:15 01/15/17 07:14 Diphenhydramine HCl 50 mg 50 mg Q4H PRN IVP Itching 12/16/16 08:30 01/15/17 08:29 12/17/16 06:40 Folic Acid (Folate) 1 mg DAILY ORAL 12/16/16 09:00 01/15/17 08:59 12/16/16 08:41 Heparin Sodium (Porcine) (Heparin 5000 units/ml) 5,000 units EVERY 12 HOURS SUBQ 12/16/16 09:00 01/15/17 08:59 12/16/16 20:38 Hydromorphone HCl (Dilaudid) 2 mg Q4H PRN IV pain 4-6 12/16/16 07:15 12/23/16 07:14 Hydromorphone HCl (Dilaudid) 4 mg Q4H ORAL 12/16/16 08:00 12/23/16 07:59 12/17/16 00:00 Hydromorphone HCl 3 mg 3 mg Q3H PRN IVP For Pain 7-10 12/16/16 07:15 12/23/16 07:14 12/17/16 06:41 Lorazepam (Ativan 2mg/ml 1ml) 0.5 mg Q4H PRN IV For Anxiety 12/16/16 07:15 12/23/16 07:14 Magnesium Sulfate (Magnesium Sulfate 1gm/100ml) 100 ml @ 100 mls/hr Q1H IVPB 12/17/16 07:30 12/17/16 09:29 UNV Methadone HCl (Methadone HCl) 5 mg BID ORAL 12/16/16 09:00 12/23/16 08:59 12/16/16 17:27 Ondansetron HCl (Zofran) 4 mg Q6H PRN IVP Nausea & Vomiting 12/16/16 07:15 01/15/17 07:14 12/17/16 03:15 Piperacillin Sod/ Tazobactam Sod 3.375 gm/Sodium Chloride 100 ml @ 25 mls/hr Q8H IVPB 12/16/16 16:00 12/23/16 15:59 12/17/16 00:00 Polyethylene Glycol (Miralax) 17 gm HSPRN PRN ORAL Constipation 12/16/16 07:15 01/15/17 07:14 Sertraline HCl (Zoloft) 100 mg DAILY ORAL 12/16/16 09:00 01/15/17 08:59 12/16/16 08:41 Sodium Chloride (0.45% NS 1000ml) 1,000 ml @ 75 mls/hr [id number] IV 12/16/16 08:00 01/15/17 07:59 12/17/16 00:10 Zolpidem Tartrate (Ambien) 5 mg HSPRN PRN ORAL Insomnia 12/16/16 07:15 01/15/17 07:14 Gerardo ([facility])Mely NP Dec 17, 2016 07:47
[2016-12-17] MEDS ORDERED: Guaifenesin/DM 10ml syrup ORAL PRN (08:30)
[2016-12-17] MEDS: Sertraline 100mg tab ORAL SCH (08:58)
[2016-12-17 09:00] VITALS: BP 121/63
[2016-12-17] MEDS: Heparin 5000 units/ml inj SUBQ SCH ×2 (09:05→21:23)
[2016-12-17] MEDS ORDERED: HYDROmorphone 4mg tab ORAL PRN ×2 (10:30→12:00)
[2016-12-17 11:19] LABS: BILIRUBIN,DIRECT 0.4 mg/dL (0.1-0.3)
[2016-12-17 12:00] VITALS: BP 130/80
[2016-12-17] MEDS ORDERED: DuoNeb 0.5-3(2.5)mg/3ml neb HHN PRN (12:00)
[2016-12-17 12:09] LABS: ANISOCYTOSIS 2+; BAND NEUTROPHILS % (MANUAL) 0 % (0-8); BASOPHILS % (MANUAL) 0 % (0-2); EOSINOPHILS % (MANUAL) 4 % (0-3); HYPOCHROMASIA 1+; LYMPHOCYTES % (MANUAL) 21 % (20-45); MACROCYTES 1+; NEUTROPHILS % (MANUAL) 62 % (45-75); NUCLEATED RED BLOOD CELLS 1 /100 WBC; PLATELET ESTIMATE ADEQUATE; PLATELET MORPHOLOGY NORMAL; SICKLE CELLS 2+; TOTAL CELLS COUNTED 100
[2016-12-17 12:10] LABS: POLYCHROMASIA 1+
[2016-12-17] MEDS ORDERED: NS 55ml IV ONE (13:47)
[2016-12-17 16:00] VITALS: BP 125/63
--- NOTE | 2016-12-17 19:09 | Infectious Diseases Prog Note ---
Assessment/Plan Assessment/Plan A: The patient is a 21-year-old female with leukocytosis improved hx of fever Chest x-ray NPAD Ch Abnl LFT hep B and C : neg HIV neg sickle cell crisis. Hx of cholecystectomy. Sickle cell disease. Bipolar disorder. Depression. Anemia. [id number] ( placed four years ago ) PLAN: patient on Zosyn d# 2 Blood cultures x2. Urine Cx : P Monitor chest x-ray. Subjective Constitutional: Denies: anorexia, chills, drenching sweats, fatigue, fever, no symptoms, other Allergies: Coded Allergies: CODEINE (Verified Allergy, Severe, 07/05/16) Throat closes up and face swells, Spoke with patient has no allery to hydromorphone KETOROLAC (Verified Allergy, Severe, 07/05/16) Throat closes up and face swells Objective Vital Signs Last 24 Hour Vital Signs Date Time Temp Pulse Resp B/P Pulse Ox O2 Delivery O2 Flow Rate FiO2 12/17/16 16:00 97.7 77 18 125/63 93 Room Air 12/17/16 12:00 97.2 80 17 130/80 93 Simple Mask 2.0 12/17/16 09:00 98.1 63 17 121/63 93 Simple Mask 2.0 12/17/16 07:30 73 16 Room Air 12/17/16 07:11 97.6 12/17/16 04:00 97.6 71 18 108/63 93 Room Air 12/17/16 00:59 97.8 12/17/16 00:28 97.8 70 19 109/66 94 Room Air 12/16/16 20:00 98.2 68 18 110/60 93 Room Air Height (Feet): 5 Height (Inches): 9.00 Weight (Pounds): 154 HEENT: atraumatic Respiratory/Chest: normal breath sounds Cardiovascular: regular rhythm Abdomen: soft, non tender Microbiology Date/Time Source Procedure Growth Status 12/16/16 13:23 Sputum Gram Stain - Final Resulted 12/16/16 13:23 Sputum Sputum Culture - Preliminary Resulted Laboratory Tests Test 12/17/16 05:30 White Blood Count 14.2 K/UL (4.8-10.8) H Red Blood Count 2.16 M/UL (4.20-5.40) L Hemoglobin 7.9 G/DL (12.0-16.0) L Hematocrit 22.8 % (37.0-47.0) L Mean Corpuscular Volume 106 FL (80-99) H Mean Corpuscular Hemoglobin 36.6 PG (27.0-31.0) H Mean Corpuscular Hemoglobin Concent 34.6 G/DL (32.0-36.0) Red Cell Distribution Width 22.6 % (11.6-14.8) H Platelet Count 322 K/UL (150-450) Mean Platelet Volume 6.1 FL (6.5-10.1) L Neutrophils (%) (Auto) % (45.0-75.0) Lymphocytes (%) (Auto) % (20.0-45.0) Monocytes (%) (Auto) % (1.0-10.0) Eosinophils (%) (Auto) % (0.0-3.0) Basophils (%) (Auto) % (0.0-2.0) Differential Total Cells Counted 100 Neutrophils % (Manual) 62 % (45-75) Lymphocytes % (Manual) 21 % (20-45) Monocytes % (Manual) 13 % (1-10) H Eosinophils % (Manual) 4 % (0-3) H Basophils % (Manual) 0 % (0-2) Band Neutrophils 0 % (0-8) Nucleated Red Blood Cells 1 /100 WBC Platelet Estimate Adequate Platelet Morphology Normal Polychromasia 1+ Hypochromasia 1+ Anisocytosis 2+ Macrocytosis 1+ Sickle Cells 2+ H Sodium Level 141 mEQ/L (135-145) Potassium Level 4.6 mEQ/L (3.4-4.9) Chloride Level 105 mEQ/L (98-107) Carbon Dioxide Level 25 mEQ/L (20-30) Anion Gap 11 (5-15) Blood Urea Nitrogen 5 mg/dL (7-23) L Creatinine 0.4 mg/dL (0.5-0.9) L Estimat Glomerular Filtration Rate > 60 mL/min (>60) Glucose Level 92 mg/dL (74-106) Calcium Level 8.8 mg/dL (8.6-10.2) Phosphorus Level 4.0 mg/dL (2.5-4.8) Magnesium Level 1.5 mg/dL (1.7-2.5) L Total Bilirubin 3.1 mg/dL (0.0-1.2) H Direct Bilirubin 0.4 mg/dL (0.1-0.3) H Aspartate Amino Transf (AST/SGOT) 49 U/L (5-40) H Alanine Aminotransferase (ALT/SGPT) 37 U/L (3-33) H Alkaline Phosphatase 59 U/L (35-104) Lactate Dehydrogenase 391 U/L (135-230) H Total Protein 6.4 g/dL (6.6-8.7) L Albumin 3.7 g/dL (3.5-5.2) Globulin 2.7 g/dL Albumin/Globulin Ratio 1.3 (1.0-2.7) Current Medications Medications (Trade) Dose Ordered Sig/Mando Route PRN Reason Start Time Stop Time Status Last Admin Dose Admin Acetaminophen (Tylenol) 650 mg Q4H PRN ORAL fever 12/16/16 07:15 01/15/17 07:14 Al Hydroxide/Mg Hydroxide (Mylanta II) 30 ml Q6H PRN ORAL dyspepsia 12/16/16 07:15 01/15/17 07:14 Albuterol/ Ipratropium (DuoNeb 0.5-3(2.5)mg/3ml) 3 ml Q4H PRN HHN Shortness of Breath 12/17/16 12:00 12/22/16 11:59 Dextrose (Dextrose 50%) STAT PRN IV Hypoglycemia 12/16/16 07:15 01/15/17 07:14 Diphenhydramine HCl 50 mg 50 mg Q4H PRN IVP Itching 12/16/16 08:30 01/15/17 08:29 12/17/16 15:09 Folic Acid (Folate) 1 mg DAILY ORAL 12/16/16 09:00 01/15/17 08:59 12/17/16 08:59 Guaifenesin/ Dextromethorphan (Robitussin DM Syrup) 10 ml QID PRN ORAL For Cough 12/17/16 08:30 01/16/17 08:29 12/17/16 10:20 Heparin Sodium (Porcine) (Heparin 5000 units/ml) 5,000 units EVERY 12 HOURS SUBQ 12/16/16 09:00 01/15/17 08:59 12/17/16 09:05 Hydromorphone HCl (Dilaudid) 3 mg Q3H PRN IVP For Pain 7-10 12/17/16 10:15 12/24/16 10:14 12/17/16 18:37 Hydromorphone HCl (Dilaudid) 4 mg Q4H PRN ORAL Breakthrough Pain 12/17/16 12:00 12/24/16 11:59 Hydromorphone HCl 2 mg 2 mg Q4H PRN IV pain 4-6 12/16/16 07:15 12/23/16 07:14 Lorazepam (Ativan 2mg/ml 1ml) 0.5 mg Q4H PRN IV For Anxiety 12/16/16 07:15 12/23/16 07:14 Methadone HCl (Methadone HCl) 5 mg BID ORAL 12/16/16 09:00 12/23/16 08:59 12/17/16 17:03 Ondansetron HCl (Zofran) 4 mg Q6H PRN IVP Nausea & Vomiting 12/16/16 07:15 01/15/17 07:14 12/17/16 10:10 Piperacillin Sod/ Tazobactam Sod/ Sodium Chloride (Zosyn/Sodium Chloride) 100 ml @ 25 mls/hr Q8H IVPB 12/16/16 16:00 12/23/16 15:59 12/17/16 16:55 Polyethylene Glycol (Miralax) 17 gm HSPRN PRN ORAL Constipation 12/16/16 07:15 01/15/17 07:14 Prochlorperazine (Compazine) 10 mg Q6H PRN IVP N/V UNRELIEVED BY ZOFRAN 12/17/16 11:45 01/16/17 11:44 12/17/16 18:36 Sertraline HCl (Zoloft) 100 mg DAILY ORAL 12/16/16 09:00 01/15/17 08:59 12/17/16 08:58 Sodium Chloride (0.45% NS 1000ml) 1,000 ml @ 75 mls/hr [id number] IV 12/16/16 08:00 01/15/17 07:59 12/17/16 16:54 Zolpidem Tartrate (Ambien) 5 mg HSPRN PRN ORAL Insomnia 12/16/16 07:15 01/15/17 07:14 DORIAN ZEE M.D. Dec 17, 2016 19:09
--- NOTE | 2016-12-17 19:17 | Internal Med Progress Note ---
Subjective Date of Service: Dec 17, 2016 Physician Name Curtis Parrish Attending Physician Scar Metz MD Current Medications Medications (Trade) Dose Ordered Sig/Mando Route PRN Reason Start Time Stop Time Status Last Admin Dose Admin Acetaminophen (Tylenol) 650 mg Q4H PRN ORAL fever 12/16/16 07:15 01/15/17 07:14 Al Hydroxide/Mg Hydroxide (Mylanta II) 30 ml Q6H PRN ORAL dyspepsia 12/16/16 07:15 01/15/17 07:14 Albuterol/ Ipratropium (DuoNeb 0.5-3(2.5)mg/3ml) 3 ml Q4H PRN HHN Shortness of Breath 12/17/16 12:00 12/22/16 11:59 Dextrose (Dextrose 50%) STAT PRN IV Hypoglycemia 12/16/16 07:15 01/15/17 07:14 Diphenhydramine HCl 50 mg 50 mg Q4H PRN IVP Itching 12/16/16 08:30 01/15/17 08:29 12/17/16 15:09 Folic Acid (Folate) 1 mg DAILY ORAL 12/16/16 09:00 01/15/17 08:59 12/17/16 08:59 Guaifenesin/ Dextromethorphan (Robitussin DM Syrup) 10 ml QID PRN ORAL For Cough 12/17/16 08:30 01/16/17 08:29 12/17/16 10:20 Heparin Sodium (Porcine) (Heparin 5000 units/ml) 5,000 units EVERY 12 HOURS SUBQ 12/16/16 09:00 01/15/17 08:59 12/17/16 09:05 Hydromorphone HCl (Dilaudid) 3 mg Q3H PRN IVP For Pain 7-10 12/17/16 10:15 12/24/16 10:14 12/17/16 18:37 Hydromorphone HCl (Dilaudid) 4 mg Q4H PRN ORAL Breakthrough Pain 12/17/16 12:00 12/24/16 11:59 Hydromorphone HCl 2 mg 2 mg Q4H PRN IV pain 4-6 12/16/16 07:15 12/23/16 07:14 Lorazepam (Ativan 2mg/ml 1ml) 0.5 mg Q4H PRN IV For Anxiety 12/16/16 07:15 12/23/16 07:14 Methadone HCl (Methadone HCl) 5 mg BID ORAL 12/16/16 09:00 12/23/16 08:59 12/17/16 17:03 Ondansetron HCl (Zofran) 4 mg Q6H PRN IVP Nausea & Vomiting 12/16/16 07:15 01/15/17 07:14 12/17/16 10:10 Piperacillin Sod/ Tazobactam Sod/ Sodium Chloride (Zosyn/Sodium Chloride) 100 ml @ 25 mls/hr Q8H IVPB 12/16/16 16:00 12/23/16 15:59 12/17/16 16:55 Polyethylene Glycol (Miralax) 17 gm HSPRN PRN ORAL Constipation 12/16/16 07:15 01/15/17 07:14 Prochlorperazine (Compazine) 10 mg Q6H PRN IVP N/V UNRELIEVED BY ZOFRTHERESA 12/17/16 11:45 01/16/17 11:44 12/17/16 18:36 Sertraline HCl (Zoloft) 100 mg DAILY ORAL 12/16/16 09:00 01/15/17 08:59 12/17/16 08:58 Sodium Chloride (0.45% NS 1000ml) 1,000 ml @ 75 mls/hr [id number] IV 12/16/16 08:00 01/15/17 07:59 12/17/16 16:54 Zolpidem Tartrate (Ambien) 5 mg HSPRN PRN ORAL Insomnia 12/16/16 07:15 01/15/17 07:14 Allergies: Coded Allergies: CODEINE (Verified Allergy, Severe, 07/05/16) Throat closes up and face swells, Spoke with patient has no allery to hydromorphone KETOROLAC (Verified Allergy, Severe, 07/05/16) Throat closes up and face swells ROS Limited/Unobtainable: No Constitutional: Reports: fever HEENT: Reports: no symptoms Cardiovascular: Reports: no symptoms Respiratory: Reports: cough, shortness of breath Gastrointestinal/Abdominal: Reports: no symptoms Genitourinary: Reports: no symptoms Neurologic/Psychiatric: Reports: no symptoms Subjective 21 YO F admitted with cough and fever. Cover for Int Андрей-Dr Metz. Objective Last Vital Signs Date Time Temp Pulse Resp B/P Pulse Ox O2 Delivery O2 Flow Rate FiO2 12/17/16 16:00 97.7 77 18 125/63 93 Room Air 12/17/16 12:00 2.0 Laboratory Tests Test 12/17/16 05:30 White Blood Count 14.2 K/UL (4.8-10.8) H Red Blood Count 2.16 M/UL (4.20-5.40) L Hemoglobin 7.9 G/DL (12.0-16.0) L Hematocrit 22.8 % (37.0-47.0) L Mean Corpuscular Volume 106 FL (80-99) H Mean Corpuscular Hemoglobin 36.6 PG (27.0-31.0) H Mean Corpuscular Hemoglobin Concent 34.6 G/DL (32.0-36.0) Red Cell Distribution Width 22.6 % (11.6-14.8) H Platelet Count 322 K/UL (150-450) Mean Platelet Volume 6.1 FL (6.5-10.1) L Neutrophils (%) (Auto) % (45.0-75.0) Lymphocytes (%) (Auto) % (20.0-45.0) Monocytes (%) (Auto) % (1.0-10.0) Eosinophils (%) (Auto) % (0.0-3.0) Basophils (%) (Auto) % (0.0-2.0) Differential Total Cells Counted 100 Neutrophils % (Manual) 62 % (45-75) Lymphocytes % (Manual) 21 % (20-45) Monocytes % (Manual) 13 % (1-10) H Eosinophils % (Manual) 4 % (0-3) H Basophils % (Manual) 0 % (0-2) Band Neutrophils 0 % (0-8) Nucleated Red Blood Cells 1 /100 WBC Platelet Estimate Adequate Platelet Morphology Normal Polychromasia 1+ Hypochromasia 1+ Anisocytosis 2+ Macrocytosis 1+ Sickle Cells 2+ H Sodium Level 141 mEQ/L (135-145) Potassium Level 4.6 mEQ/L (3.4-4.9) Chloride Level 105 mEQ/L (98-107) Carbon Dioxide Level 25 mEQ/L (20-30) Anion Gap 11 (5-15) Blood Urea Nitrogen 5 mg/dL (7-23) L Creatinine 0.4 mg/dL (0.5-0.9) L Estimat Glomerular Filtration Rate > 60 mL/min (>60) Glucose Level 92 mg/dL (74-106) Calcium Level 8.8 mg/dL (8.6-10.2) Phosphorus Level 4.0 mg/dL (2.5-4.8) Magnesium Level 1.5 mg/dL (1.7-2.5) L Total Bilirubin 3.1 mg/dL (0.0-1.2) H Direct Bilirubin 0.4 mg/dL (0.1-0.3) H Aspartate Amino Transf (AST/SGOT) 49 U/L (5-40) H Alanine Aminotransferase (ALT/SGPT) 37 U/L (3-33) H Alkaline Phosphatase 59 U/L (35-104) Lactate Dehydrogenase 391 U/L (135-230) H Total Protein 6.4 g/dL (6.6-8.7) L Albumin 3.7 g/dL (3.5-5.2) Globulin 2.7 g/dL Albumin/Globulin Ratio 1.3 (1.0-2.7) Microbiology Date/Time Source Procedure Growth Status 12/16/16 13:23 Sputum Gram Stain - Final Resulted 12/16/16 13:23 Sputum Sputum Culture - Preliminary Resulted Intake and Output 12/16/16 12/17/16 19:00 07:00 Intake Total 1145 ml 595 ml Balance 1145 ml 595 ml Intake Oral 420 ml 120 ml IV Total 725 ml 475 ml # Voids 2 Objective General: alert, cooperative, no distress, appears stated age Head: normocephalic, without obvious abnormality, atraumatic Eyes: conjunctivae/corneas clear. PERRL, EOM's intact Throat: lips, mucosa, and tongue normal. MMM Neck: supple, symmetrical, trachea midline, and no JVD Lungs: clear to auscultation bilaterally; few wheezes Heart: regular rate and rhythm, S1, S2 normal, no murmur, click, rub or gallop Abdomen: soft, non-tender, non-distended, bowel sounds normal; no masses or organomegaly Extremities: extremities normal, atraumatic, no cyanosis or edema Pulses: 2+ and symmetric Skin: skin color, texture, turgor normal; no rashes or lesions Neurologic: grossly normal, no focal deficits Assessment/Plan Problem List: (1) Bipolar depression (2) Sickle cell anemia with pain Assessment & Plan: Await heme consult. Pain management and IV hydration. (3) Leukocytosis, unspecified (4) Sickle cell disease (5) Bronchitis Assessment & Plan: see ID consult. Cont zosyn for now. (6) Upper respiratory infection (7) Sickle cell crisis Status: not improved CURTIS PARRISH Dec 17, 2016 19:17
--- NOTE | 2016-12-17 20:09 | Consultation ---
Consult Note Consult Note HEMATOLOGY CONSULTATION NOTE Requesting MD: SHIVANI Date of service: 12/17/16 Reason of consult: sickle cell disease, leukocytosis ID: The patient is a 21-year-old female with pmhx sickle cell anemia, patient presents after recommendation from her primary care doctor namely Dr. Soto for admission secondary to fevers and chillls and night sweats as well as sickle cell crisis and severe pain syndrome associated thereof. No other complaints of SOB or headache, no complaints of chest pain. Patient appears to be in moderate amount of distress and complains of severe body aches. PMHX: Sickle cell disease Pain syndrome Bipolar disorder Allergies: CODEINE (Verified Allergy, Severe, 07/05/16) KETOROLAC (Verified Allergy, Severe, 07/05/16) Throat closes up and face swells Medication History Azithromycin* (Zithromax*), 250 MG ORAL DAILY Cyanocobalamin (Vitamin B-12) (Vitamin B12), 2,500 MCG PO DAILY, (Reported) Folic Acid* (Folic Acid*), 1 MG ORAL DAILY, (Reported) Hydromorphone HCl (Dilaudid), 4 MG ORAL Q4H, (Reported) Hydromorphone HCl (Dilaudid), 2 MG ORAL Q4H Ibuprofen* (Motrin*), 800 MG ORAL Q8H, (Reported) Methadone Hcl* (Methadone*), 5 MG PO BID, (Reported) Methadone Hcl* (Methadone*), 2 MG PO QHS, (Reported) Mometasone Furoate (Nasonex), Unknown Dose NASAL DAILY, (Reported) Sertraline Hcl* (Zoloft*), 100 MG ORAL DAILY, (Reported) Sumatriptan Succinate* (Imitrex*), Unknown Dose ORAL DAILY PRN MIGRAINE, ( Reported) Vitamin D (Vitamin D3), 400 UNITS ORAL DAILY, (Reported) Scheduled PRN Albuterol Sulfate* (Albuterol Sulfate Hhn*), Unknown Dose INH Q4H PRN for Shortness of Breath, (Reported) Diphenhydramine HCl (Diphenhydramine HCl), 50 MG ORAL Q6H PRN for Itching, ( Reported) Ondansetron (Zofran), 4 MG ORAL Q6H PRN for Nausea & Vomiting, (Reported) REVIEW OF SYSTEMS: Constitutional: Reports: chills, sweats, weakness Musculoskeletal: Reports: back pain, joint pain, muscle pain, muscle stiffnes EXAM: General Appearance: moderate distress Lines, tubes and drains: peripheral HEENT: normocephalic, atraumatic, PERRL Neck: non-tender, normal alignment, supple Respiratory/Chest: lungs clear, decreased breath sounds, accessory muscle use Breasts: no masses Cardiovascular/Chest: normal peripheral pulses, regular rhythm, no JVD, tachycardia Abdomen: normal bowel sounds, soft, guarding Genitourinary/Rectal: normal genital exam, normal rectal exam Extremities: normal range of motion, non-tender Skin Exam: normal pigmentation, warm/dry Neurologic: comb capper II-XII grossly normal, no motor/sensory deficits Last 24 Hour Vital Signs Date Time Temp Pulse Resp B/P Pulse Ox O2 Delivery O2 Flow Rate FiO2 12/17/16 16:00 97.7 77 18 125/63 93 Room Air 12/17/16 12:00 97.2 80 17 130/80 93 Simple Mask 2.0 12/17/16 09:00 98.1 63 17 121/63 93 Simple Mask 2.0 12/17/16 07:30 73 16 Room Air 12/17/16 07:11 97.6 12/17/16 04:00 97.6 71 18 108/63 93 Room Air 12/17/16 00:59 97.8 12/17/16 00:28 97.8 70 19 109/66 94 Room Air Laboratory Tests Test 12/17/16 05:30 White Blood Count 14.2 K/UL (4.8-10.8) H Red Blood Count 2.16 M/UL (4.20-5.40) L Hemoglobin 7.9 G/DL (12.0-16.0) L Hematocrit 22.8 % (37.0-47.0) L Mean Corpuscular Volume 106 FL (80-99) H Mean Corpuscular Hemoglobin 36.6 PG (27.0-31.0) H Mean Corpuscular Hemoglobin Concent 34.6 G/DL (32.0-36.0) Red Cell Distribution Width 22.6 % (11.6-14.8) H Platelet Count 322 K/UL (150-450) Mean Platelet Volume 6.1 FL (6.5-10.1) L Neutrophils (%) (Auto) % (45.0-75.0) Lymphocytes (%) (Auto) % (20.0-45.0) Monocytes (%) (Auto) % (1.0-10.0) Eosinophils (%) (Auto) % (0.0-3.0) Basophils (%) (Auto) % (0.0-2.0) Differential Total Cells Counted 100 Neutrophils % (Manual) 62 % (45-75) Lymphocytes % (Manual) 21 % (20-45) Monocytes % (Manual) 13 % (1-10) H Eosinophils % (Manual) 4 % (0-3) H Basophils % (Manual) 0 % (0-2) Band Neutrophils 0 % (0-8) Nucleated Red Blood Cells 1 /100 WBC Platelet Estimate Adequate Platelet Morphology Normal Polychromasia 1+ Hypochromasia 1+ Anisocytosis 2+ Macrocytosis 1+ Sickle Cells 2+ H Sodium Level 141 mEQ/L (135-145) Potassium Level 4.6 mEQ/L (3.4-4.9) Chloride Level 105 mEQ/L (98-107) Carbon Dioxide Level 25 mEQ/L (20-30) Anion Gap 11 (5-15) Blood Urea Nitrogen 5 mg/dL (7-23) L Creatinine 0.4 mg/dL (0.5-0.9) L Estimat Glomerular Filtration Rate > 60 mL/min (>60) Glucose Level 92 mg/dL (74-106) Calcium Level 8.8 mg/dL (8.6-10.2) Phosphorus Level 4.0 mg/dL (2.5-4.8) Magnesium Level 1.5 mg/dL (1.7-2.5) L Total Bilirubin 3.1 mg/dL (0.0-1.2) H Direct Bilirubin 0.4 mg/dL (0.1-0.3) H Aspartate Amino Transf (AST/SGOT) 49 U/L (5-40) H Alanine Aminotransferase (ALT/SGPT) 37 U/L (3-33) H Alkaline Phosphatase 59 U/L (35-104) Lactate Dehydrogenase 391 U/L (135-230) H Total Protein 6.4 g/dL (6.6-8.7) L Albumin 3.7 g/dL (3.5-5.2) Globulin 2.7 g/dL Albumin/Globulin Ratio 1.3 (1.0-2.7) Assessment: # Sickle cell crisis with frequent crisis in the past # Anemia 2/2 sickle cell disease # Leukocytosis 2/2 crisis v underlying infection # Reticulocytosis # Fevers/Chills # Malnutrition # Weakness Recs: - Retic is elevated consistent with crisis - Anemia w/u has been ordered - Have ordered for hemoglobin electropheresis to confirm dx - Spirometry to continue, O2 therapy - IVF as needed - Pain control - Continue hydroxydurea - Appreciate psych followup - Hgb goal >7 - Appreciate consultation! Trever Álvarez Dec 17, 2016 20:09
[2016-12-17 21:00] VITALS: BP 106/61
[2016-12-18] VITALS: BP 109/56
[2016-12-18] MEDS: DiphenhydrAMINE 50mg/ml Inj IVP PRN ×5 (00:10→19:22)
[2016-12-18 04:00] VITALS: BP 116/56
[2016-12-18 07:16] LABS: MEAN CORPUSCULAR HEMOGLOBIN 37.2 PG (27.0-31.0); MEAN CORPUSCULAR HGB CONC 35.6 G/DL (32.0-36.0); MEAN CORPUSCULAR VOLUME 105 FL (80-99); MEAN PLATELET VOLUME 5.9 FL (6.5-10.1); PLATELET COUNT 321 K/UL (150-450); RED CELL DISTRIBUTION WIDTH 23.6 % (11.6-14.8); WHITE BLOOD COUNT 12.9 K/UL (4.8-10.8)
[2016-12-18 07:27] LABS: ALANINE AMINOTRANSFERASE 40 U/L (3-33); ALBUMIN/GLOBULIN RATIO 1.6 (1.0-2.7); ANION GAP 13 (5-15); ASPARTATE AMINO TRANSFERASE 53 U/L (5-40); CALCIUM 8.8 mg/dL (8.6-10.2); CARBON DIOXIDE 25 mEQ/L (20-30); CHLORIDE 102 mEQ/L (98-107); CREATININE 0.4 mg/dL (0.5-0.9); GLOMERULAR FILTRATION RATE > 60 mL/min (>60); HEMOLYSIS 13; LACTATE DEHYDROGENASE 399 U/L (135-230); POTASSIUM 4.3 mEQ/L (3.4-4.9); SODIUM 140 mEQ/L (135-145); TOTAL PROTEIN 6.2 g/dL (6.6-8.7)
[2016-12-18 07:43] LABS: BILIRUBIN,DIRECT 0.4 mg/dL (0.1-0.3)
[2016-12-18 08:00] VITALS: BP 115/71
[2016-12-18] MEDS: Sertraline 100mg tab ORAL SCH ×2 (09:00→10:49)
[2016-12-18 09:29] LABS: BAND NEUTROPHILS % (MANUAL) 0 % (0-8); BASOPHILS % (MANUAL) 0 % (0-2); EOSINOPHILS % (MANUAL) 4 % (0-3); LYMPHOCYTES % (MANUAL) 26 % (20-45); MACROCYTES 1+; NEUTROPHILS % (MANUAL) 63 % (45-75); NUCLEATED RED BLOOD CELLS 2 /100 WBC; PLATELET ESTIMATE ADEQUATE; PLATELET MORPHOLOGY NORMAL; TOTAL CELLS COUNTED 100
[2016-12-18 09:30] LABS: HYPOCHROMASIA 1+; POLYCHROMASIA 2+; SICKLE CELLS 2+
[2016-12-18 09:55] LABS: OTHERS PATHOLOGIST COMMENT
[2016-12-18] MEDS ORDERED: NS 275ml ONE (10:00)
[2016-12-18] MEDS ORDERED: Tubing IV Secondary IV ONE (10:00)
[2016-12-18] MEDS ORDERED: 1/2 NS 1000ml IV ONE (10:00)
[2016-12-18] MEDS: Heparin 5000 units/ml inj SUBQ SCH ×2 (10:54→21:00)
--- NOTE | 2016-12-18 11:29 | Pulmonology Progress Note ---
Assessment/Plan Assessment/Plan ASSESSMENT bronchitis URI sickle cell disease, possible sickle cell crisis anemia elevated transaminase ( chronic) hypomagnesemia PLAN OF CARE [facility] floor IVF O2 HHN prn sputum cx negative, blood cx preliminary negative empiric abx antitussive prn CXR negative pain management monitor HH. goal to keep Hgb above 7 heme follows LDH still high monitor LFT , elevated LFT likely 2 to increased hemolysis ( chronic) Mg replaced, check in am nutritional support case discussed and evaluated by supervising physician Subjective Allergies: Coded Allergies: CODEINE (Verified Allergy, Severe, 07/05/16) Throat closes up and face swells, Spoke with patient has no allery to hydromorphone KETOROLAC (Verified Allergy, Severe, 07/05/16) Throat closes up and face swells Subjective leukocytosis trending down, afebrile on RA sat stable denies SOB, chest pain, cough HH trending down Objective Last 24 Hour Vital Signs Date Time Temp Pulse Resp B/P Pulse Ox O2 Delivery O2 Flow Rate FiO2 12/18/16 08:00 98.6 80 18 115/71 94 Nasal Cannula 3.0 12/18/16 07:43 97.7 12/18/16 04:00 98.2 78 18 116/56 93 Nasal Cannula 3.0 12/18/16 00:00 97.9 75 18 109/56 93 Room Air 12/17/16 21:00 97.7 69 16 106/61 93 Nasal Cannula 2.0 12/17/16 16:00 97.7 77 18 125/63 93 Room Air 12/17/16 12:00 97.2 80 17 130/80 93 Simple Mask 2.0 Intake and Output 12/17/16 12/18/16 19:00 07:00 Intake Total 1290 ml 500 ml Output Total 200 ml Balance 1090 ml 500 ml Intake Oral 240 ml 500 ml IV Total 1050 ml Output Emesis 200 ml # Voids 2 2 Objective General Appearance: WD/WN, no acute distress, other - A/A/O x 3 female HEENT: normocephalic, atraumatic, anicteric, mucous membranes moist Respiratory/Chest: lungs clear - with mdoerate air entry , no respiratory distress, no accessory muscle use Cardiovascular: normal rate, regular rhythm Abdomen: normal bowel sounds, soft, non tender, non distended Genitourinary: normal external genitalia Extremities: no edema, pedal pulses normal Neurologic/Psychiatric: no motor/sensory deficits, alert, oriented x 3, responsive Musculoskeletal: normal muscle bulk Microbiology Date/Time Source Procedure Growth Status 12/16/16 08:30 Blood Blood Culture - Preliminary NO GROWTH AFTER 48 HOURS Resulted 12/16/16 08:15 Blood Blood Culture - Preliminary NO GROWTH AFTER 48 HOURS Resulted 12/16/16 13:23 Sputum Gram Stain - Final Complete 12/16/16 13:23 Sputum Sputum Culture - Final NORMAL UPPER RESPIRATORY LORI AT 48 ... Complete Laboratory Tests 12/18/16 04:45: White Blood Count 12.9H, Red Blood Count 2.10L, Hemoglobin 7.8L, Hematocrit 21.9L, Mean Corpuscular Volume 105H, Mean Corpuscular Hemoglobin 37.2H, Mean Corpuscular Hemoglobin Concent 35.6, Red Cell Distribution Width 23.6H, Platelet Count 321, Mean Platelet Volume 5.9L, Neutrophils (%) (Auto) , Lymphocytes (%) (Auto) , Monocytes (%) (Auto) , Eosinophils (%) (Auto) , Basophils (%) (Auto) , Differential Total Cells Counted 100, Neutrophils % ( Manual) 63, Lymphocytes % (Manual) 26, Monocytes % (Manual) 7, Eosinophils % ( Manual) 4H, Basophils % (Manual) 0, Band Neutrophils 0, Nucleated Red Blood Cells 2, Platelet Estimate Adequate, Platelet Morphology Normal, Polychromasia 2 +, Hypochromasia 1+, Macrocytosis 1+, Sickle Cells 2+H, Sodium Level 140, Potassium Level 4.3, Chloride Level 102, Carbon Dioxide Level 25, Anion Gap 13, Blood Urea Nitrogen 5L, Creatinine 0.4L, Estimat Glomerular Filtration Rate > 60 , Glucose Level 77, Calcium Level 8.8, Total Bilirubin 2.9H, Direct Bilirubin 0.4H, Aspartate Amino Transf (AST/SGOT) 53H, Alanine Aminotransferase (ALT/SGPT ) 40H, Alkaline Phosphatase 60, Lactate Dehydrogenase 399H, Total Protein 6.2L, Albumin 3.9, Globulin 2.3, Albumin/Globulin Ratio 1.6 Current Medications Medications (Trade) Dose Ordered Sig/Mando Route PRN Reason Start Time Stop Time Status Last Admin Dose Admin Acetaminophen (Tylenol) 650 mg Q4H PRN ORAL fever 12/16/16 07:15 01/15/17 07:14 Al Hydroxide/Mg Hydroxide (Mylanta II) 30 ml Q6H PRN ORAL dyspepsia 12/16/16 07:15 01/15/17 07:14 Albuterol/ Ipratropium (DuoNeb 0.5-3(2.5)mg/3ml) 3 ml Q4H PRN HHN Shortness of Breath 12/17/16 12:00 12/22/16 11:59 Dextrose (Dextrose 50%) STAT PRN IV Hypoglycemia 12/16/16 07:15 01/15/17 07:14 Diphenhydramine HCl 50 mg 50 mg Q4H PRN IVP Itching 12/16/16 08:30 01/15/17 08:29 12/18/16 10:54 Folic Acid (Folate) 1 mg DAILY ORAL 12/16/16 09:00 01/15/17 08:59 12/18/16 10:49 Guaifenesin/ Dextromethorphan (Robitussin DM Syrup) 10 ml QID PRN ORAL For Cough 12/17/16 08:30 01/16/17 08:29 12/17/16 10:20 Heparin Sodium (Porcine) (Heparin 5000 units/ml) 5,000 units EVERY 12 HOURS SUBQ 12/16/16 09:00 01/15/17 08:59 12/18/16 10:54 Hydromorphone HCl (Dilaudid) 3 mg Q3H PRN IVP For Pain 7-10 12/17/16 10:15 12/24/16 10:14 12/18/16 10:51 Hydromorphone HCl (Dilaudid) 4 mg Q4H PRN ORAL Breakthrough Pain 12/17/16 12:00 12/24/16 11:59 Hydromorphone HCl 2 mg 2 mg Q4H PRN IV pain 4-6 12/16/16 07:15 12/23/16 07:14 Lorazepam (Ativan 2mg/ml 1ml) 0.5 mg Q4H PRN IV For Anxiety 12/16/16 07:15 12/23/16 07:14 Methadone HCl (Methadone HCl) 5 mg BID ORAL 12/16/16 09:00 12/23/16 08:59 12/17/16 17:03 Ondansetron HCl (Zofran) 4 mg Q6H PRN IVP Nausea & Vomiting 12/16/16 07:15 01/15/17 07:14 12/17/16 10:10 Piperacillin Sod/ Tazobactam Sod/ Sodium Chloride (Zosyn/Sodium Chloride) 100 ml @ 25 mls/hr Q8H IVPB 12/16/16 16:00 12/23/16 15:59 12/18/16 08:00 Polyethylene Glycol (Miralax) 17 gm HSPRN PRN ORAL Constipation 12/16/16 07:15 01/15/17 07:14 Prochlorperazine (Compazine) 10 mg Q6H PRN IVP N/V UNRELIEVED BY DEDE 12/17/16 11:45 01/16/17 11:44 12/17/16 18:36 Sertraline HCl (Zoloft) 100 mg DAILY ORAL 12/16/16 09:00 01/15/17 08:59 12/18/16 10:49 Sodium Chloride (0.45% NS 1000ml) 1,000 ml @ 75 mls/hr [id number] IV 12/16/16 08:00 01/15/17 07:59 12/18/16 00:08 Zolpidem Tartrate (Ambien) 5 mg HSPRN PRN ORAL Insomnia 12/16/16 07:15 01/15/17 07:14 [facility]ardo CardozaNew[facility] HospitalMely Appiah NP Dec 18, 2016 11:29
[2016-12-18 12:00] VITALS: BP 129/71
--- NOTE | 2016-12-18 13:24 | Internal Med Progress Note ---
Subjective Date of Service: Dec 18, 2016 Physician Name Curtis Parrish Attending Physician Scar Metz MD Current Medications Medications (Trade) Dose Ordered Sig/Mando Route PRN Reason Start Time Stop Time Status Last Admin Dose Admin Acetaminophen (Tylenol) 650 mg Q4H PRN ORAL fever 12/16/16 07:15 01/15/17 07:14 Al Hydroxide/Mg Hydroxide (Mylanta II) 30 ml Q6H PRN ORAL dyspepsia 12/16/16 07:15 01/15/17 07:14 Albuterol/ Ipratropium (DuoNeb 0.5-3(2.5)mg/3ml) 3 ml Q4H PRN HHN Shortness of Breath 12/17/16 12:00 12/22/16 11:59 Dextrose (Dextrose 50%) STAT PRN IV Hypoglycemia 12/16/16 07:15 01/15/17 07:14 Diphenhydramine HCl 50 mg 50 mg Q4H PRN IVP Itching 12/16/16 08:30 01/15/17 08:29 12/18/16 10:54 Folic Acid (Folate) 1 mg DAILY ORAL 12/16/16 09:00 01/15/17 08:59 12/18/16 10:49 Guaifenesin/ Dextromethorphan (Robitussin DM Syrup) 10 ml QID PRN ORAL For Cough 12/17/16 08:30 01/16/17 08:29 12/17/16 10:20 Heparin Sodium (Porcine) (Heparin 5000 units/ml) 5,000 units EVERY 12 HOURS SUBQ 12/16/16 09:00 01/15/17 08:59 12/18/16 10:54 Hydromorphone HCl (Dilaudid) 3 mg Q3H PRN IVP For Pain 7-10 12/17/16 10:15 12/24/16 10:14 12/18/16 10:51 Hydromorphone HCl (Dilaudid) 4 mg Q4H PRN ORAL Breakthrough Pain 12/17/16 12:00 12/24/16 11:59 Hydromorphone HCl 2 mg 2 mg Q4H PRN IV pain 4-6 12/16/16 07:15 12/23/16 07:14 Lorazepam (Ativan 2mg/ml 1ml) 0.5 mg Q4H PRN IV For Anxiety 12/16/16 07:15 12/23/16 07:14 Methadone HCl (Methadone HCl) 5 mg BID ORAL 12/16/16 09:00 12/23/16 08:59 12/17/16 17:03 Ondansetron HCl (Zofran) 4 mg Q6H PRN IVP Nausea & Vomiting 12/16/16 07:15 01/15/17 07:14 12/17/16 10:10 Piperacillin Sod/ Tazobactam Sod/ Sodium Chloride (Zosyn/Sodium Chloride) 100 ml @ 25 mls/hr Q8H IVPB 12/16/16 16:00 12/23/16 15:59 12/18/16 08:00 Polyethylene Glycol (Miralax) 17 gm HSPRN PRN ORAL Constipation 12/16/16 07:15 01/15/17 07:14 Prochlorperazine (Compazine) 10 mg Q6H PRN IVP N/V UNRELIEVED BY ZOFRAN 12/17/16 11:45 01/16/17 11:44 12/17/16 18:36 Sertraline HCl (Zoloft) 100 mg DAILY ORAL 12/16/16 09:00 01/15/17 08:59 12/18/16 10:49 Sodium Chloride (0.45% NS 1000ml) 1,000 ml @ 75 mls/hr [id number] IV 12/16/16 08:00 01/15/17 07:59 12/18/16 00:08 Zolpidem Tartrate (Ambien) 5 mg HSPRN PRN ORAL Insomnia 12/16/16 07:15 01/15/17 07:14 Allergies: Coded Allergies: CODEINE (Verified Allergy, Severe, 07/05/16) Throat closes up and face swells, Spoke with patient has no allery to hydromorphone KETOROLAC (Verified Allergy, Severe, 07/05/16) Throat closes up and face swells ROS Limited/Unobtainable: No Constitutional: Reports: fever HEENT: Reports: no symptoms Cardiovascular: Reports: no symptoms Respiratory: Reports: cough Gastrointestinal/Abdominal: Reports: no symptoms Genitourinary: Reports: no symptoms Neurologic/Psychiatric: Reports: no symptoms Subjective 21 YO F admitted with cough and fever. Cover for Int Med-Dr Metz. Objective Last Vital Signs Date Time Temp Pulse Resp B/P Pulse Ox O2 Delivery O2 Flow Rate FiO2 12/18/16 12:00 97.8 91 16 129/71 92 Room Air 12/18/16 08:00 3.0 Laboratory Tests Test 12/18/16 04:45 White Blood Count 12.9 K/UL (4.8-10.8) H Red Blood Count 2.10 M/UL (4.20-5.40) L Hemoglobin 7.8 G/DL (12.0-16.0) L Hematocrit 21.9 % (37.0-47.0) L Mean Corpuscular Volume 105 FL (80-99) H Mean Corpuscular Hemoglobin 37.2 PG (27.0-31.0) H Mean Corpuscular Hemoglobin Concent 35.6 G/DL (32.0-36.0) Red Cell Distribution Width 23.6 % (11.6-14.8) H Platelet Count 321 K/UL (150-450) Mean Platelet Volume 5.9 FL (6.5-10.1) L Neutrophils (%) (Auto) % (45.0-75.0) Lymphocytes (%) (Auto) % (20.0-45.0) Monocytes (%) (Auto) % (1.0-10.0) Eosinophils (%) (Auto) % (0.0-3.0) Basophils (%) (Auto) % (0.0-2.0) Differential Total Cells Counted 100 Neutrophils % (Manual) 63 % (45-75) Lymphocytes % (Manual) 26 % (20-45) Monocytes % (Manual) 7 % (1-10) Eosinophils % (Manual) 4 % (0-3) H Basophils % (Manual) 0 % (0-2) Band Neutrophils 0 % (0-8) Nucleated Red Blood Cells 2 /100 WBC Platelet Estimate Adequate Platelet Morphology Normal Polychromasia 2+ Hypochromasia 1+ Macrocytosis 1+ Sickle Cells 2+ H Sodium Level 140 mEQ/L (135-145) Potassium Level 4.3 mEQ/L (3.4-4.9) Chloride Level 102 mEQ/L (98-107) Carbon Dioxide Level 25 mEQ/L (20-30) Anion Gap 13 (5-15) Blood Urea Nitrogen 5 mg/dL (7-23) L Creatinine 0.4 mg/dL (0.5-0.9) L Estimat Glomerular Filtration Rate > 60 mL/min (>60) Glucose Level 77 mg/dL (74-106) Calcium Level 8.8 mg/dL (8.6-10.2) Total Bilirubin 2.9 mg/dL (0.0-1.2) H Direct Bilirubin 0.4 mg/dL (0.1-0.3) H Aspartate Amino Transf (AST/SGOT) 53 U/L (5-40) H Alanine Aminotransferase (ALT/SGPT) 40 U/L (3-33) H Alkaline Phosphatase 60 U/L (35-104) Lactate Dehydrogenase 399 U/L (135-230) H Total Protein 6.2 g/dL (6.6-8.7) L Albumin 3.9 g/dL (3.5-5.2) Globulin 2.3 g/dL Albumin/Globulin Ratio 1.6 (1.0-2.7) Microbiology Date/Time Source Procedure Growth Status 12/16/16 08:30 Blood Blood Culture - Preliminary NO GROWTH AFTER 48 HOURS Resulted 12/16/16 08:15 Blood Blood Culture - Preliminary NO GROWTH AFTER 48 HOURS Resulted 12/16/16 13:23 Sputum Gram Stain - Final Complete 12/16/16 13:23 Sputum Sputum Culture - Final NORMAL UPPER RESPIRATORY LORI AT 48 ... Complete Intake and Output 12/17/16 12/18/16 19:00 07:00 Intake Total 1290 ml 500 ml Output Total 200 ml Balance 1090 ml 500 ml Intake Oral 240 ml 500 ml IV Total 1050 ml Output Emesis 200 ml # Voids 2 2 Objective General: alert, cooperative, no distress, appears stated age Head: normocephalic, without obvious abnormality, atraumatic Eyes: conjunctivae/corneas clear. PERRL, EOM's intact Throat: lips, mucosa, and tongue normal. MMM Neck: supple, symmetrical, trachea midline, and no JVD Lungs: clear to auscultation bilaterally; few wheezes Heart: regular rate and rhythm, S1, S2 normal, no murmur, click, rub or gallop Abdomen: soft, non-tender, non-distended, bowel sounds normal; no masses or organomegaly Extremities: extremities normal, atraumatic, no cyanosis or edema Pulses: 2+ and symmetric Skin: skin color, texture, turgor normal; no rashes or lesions Neurologic: grossly normal, no focal deficits Assessment/Plan Problem List: (1) Bipolar depression (2) Sickle cell anemia with pain Assessment & Plan: See heme consult. Pain management and IV hydration. (3) Leukocytosis, unspecified (4) Sickle cell disease (5) Bronchitis Assessment & Plan: see ID consult. Cont zosyn for now. (6) Upper respiratory infection (7) Sickle cell crisis Status: not improved CURTIS PARRISH Dec 18, 2016 13:23
--- NOTE | 2016-12-18 13:31 | Internal Med Progress Note ---
Subjective Date of Service: Dec 18, 2016 Physician Name Curtis Parrish Attending Physician Scar Metz MD Current Medications Medications (Trade) Dose Ordered Sig/Mando Route PRN Reason Start Time Stop Time Status Last Admin Dose Admin Acetaminophen (Tylenol) 650 mg Q4H PRN ORAL fever 12/16/16 07:15 01/15/17 07:14 Al Hydroxide/Mg Hydroxide (Mylanta II) 30 ml Q6H PRN ORAL dyspepsia 12/16/16 07:15 01/15/17 07:14 Albuterol/ Ipratropium (DuoNeb 0.5-3(2.5)mg/3ml) 3 ml Q4H PRN HHN Shortness of Breath 12/17/16 12:00 12/22/16 11:59 Dextrose (Dextrose 50%) STAT PRN IV Hypoglycemia 12/16/16 07:15 01/15/17 07:14 Diphenhydramine HCl 50 mg 50 mg Q4H PRN IVP Itching 12/16/16 08:30 01/15/17 08:29 12/18/16 10:54 Folic Acid (Folate) 1 mg DAILY ORAL 12/16/16 09:00 01/15/17 08:59 12/18/16 10:49 Guaifenesin/ Dextromethorphan (Robitussin DM Syrup) 10 ml QID PRN ORAL For Cough 12/17/16 08:30 01/16/17 08:29 12/17/16 10:20 Heparin Sodium (Porcine) (Heparin 5000 units/ml) 5,000 units EVERY 12 HOURS SUBQ 12/16/16 09:00 01/15/17 08:59 12/18/16 10:54 Hydromorphone HCl (Dilaudid) 3 mg Q3H PRN IVP For Pain 7-10 12/17/16 10:15 12/24/16 10:14 12/18/16 10:51 Hydromorphone HCl (Dilaudid) 4 mg Q4H PRN ORAL Breakthrough Pain 12/17/16 12:00 12/24/16 11:59 Hydromorphone HCl 2 mg 2 mg Q4H PRN IV pain 4-6 12/16/16 07:15 12/23/16 07:14 Lorazepam (Ativan 2mg/ml 1ml) 0.5 mg Q4H PRN IV For Anxiety 12/16/16 07:15 12/23/16 07:14 Methadone HCl (Methadone HCl) 5 mg BID ORAL 12/16/16 09:00 12/23/16 08:59 12/17/16 17:03 Ondansetron HCl (Zofran) 4 mg Q6H PRN IVP Nausea & Vomiting 12/16/16 07:15 01/15/17 07:14 12/17/16 10:10 Piperacillin Sod/ Tazobactam Sod/ Sodium Chloride (Zosyn/Sodium Chloride) 100 ml @ 25 mls/hr Q8H IVPB 12/16/16 16:00 12/23/16 15:59 12/18/16 08:00 Polyethylene Glycol (Miralax) 17 gm HSPRN PRN ORAL Constipation 12/16/16 07:15 01/15/17 07:14 Prochlorperazine (Compazine) 10 mg Q6H PRN IVP N/V UNRELIEVED BY ZOFRTHERESA 12/17/16 11:45 01/16/17 11:44 12/17/16 18:36 Sertraline HCl (Zoloft) 100 mg DAILY ORAL 12/16/16 09:00 01/15/17 08:59 12/18/16 10:49 Sodium Chloride (0.45% NS 1000ml) 1,000 ml @ 75 mls/hr [id number] IV 12/16/16 08:00 01/15/17 07:59 12/18/16 00:08 Zolpidem Tartrate (Ambien) 5 mg HSPRN PRN ORAL Insomnia 12/16/16 07:15 01/15/17 07:14 Allergies: Coded Allergies: CODEINE (Verified Allergy, Severe, 07/05/16) Throat closes up and face swells, Spoke with patient has no allery to hydromorphone KETOROLAC (Verified Allergy, Severe, 07/05/16) Throat closes up and face swells ROS Limited/Unobtainable: No Constitutional: Reports: no symptoms HEENT: Reports: no symptoms Cardiovascular: Reports: no symptoms Respiratory: Reports: cough Gastrointestinal/Abdominal: Reports: no symptoms Genitourinary: Reports: no symptoms Neurologic/Psychiatric: Reports: no symptoms Subjective 21 YO F admitted with cough and fever. Cover for Int Med-Dr Metz. Cough improving per patient. Objective Last Vital Signs Date Time Temp Pulse Resp B/P Pulse Ox O2 Delivery O2 Flow Rate FiO2 12/18/16 12:00 97.8 91 16 129/71 92 Room Air 12/18/16 08:00 3.0 Laboratory Tests Test 12/18/16 04:45 White Blood Count 12.9 K/UL (4.8-10.8) H Red Blood Count 2.10 M/UL (4.20-5.40) L Hemoglobin 7.8 G/DL (12.0-16.0) L Hematocrit 21.9 % (37.0-47.0) L Mean Corpuscular Volume 105 FL (80-99) H Mean Corpuscular Hemoglobin 37.2 PG (27.0-31.0) H Mean Corpuscular Hemoglobin Concent 35.6 G/DL (32.0-36.0) Red Cell Distribution Width 23.6 % (11.6-14.8) H Platelet Count 321 K/UL (150-450) Mean Platelet Volume 5.9 FL (6.5-10.1) L Neutrophils (%) (Auto) % (45.0-75.0) Lymphocytes (%) (Auto) % (20.0-45.0) Monocytes (%) (Auto) % (1.0-10.0) Eosinophils (%) (Auto) % (0.0-3.0) Basophils (%) (Auto) % (0.0-2.0) Differential Total Cells Counted 100 Neutrophils % (Manual) 63 % (45-75) Lymphocytes % (Manual) 26 % (20-45) Monocytes % (Manual) 7 % (1-10) Eosinophils % (Manual) 4 % (0-3) H Basophils % (Manual) 0 % (0-2) Band Neutrophils 0 % (0-8) Nucleated Red Blood Cells 2 /100 WBC Platelet Estimate Adequate Platelet Morphology Normal Polychromasia 2+ Hypochromasia 1+ Macrocytosis 1+ Sickle Cells 2+ H Sodium Level 140 mEQ/L (135-145) Potassium Level 4.3 mEQ/L (3.4-4.9) Chloride Level 102 mEQ/L (98-107) Carbon Dioxide Level 25 mEQ/L (20-30) Anion Gap 13 (5-15) Blood Urea Nitrogen 5 mg/dL (7-23) L Creatinine 0.4 mg/dL (0.5-0.9) L Estimat Glomerular Filtration Rate > 60 mL/min (>60) Glucose Level 77 mg/dL (74-106) Calcium Level 8.8 mg/dL (8.6-10.2) Total Bilirubin 2.9 mg/dL (0.0-1.2) H Direct Bilirubin 0.4 mg/dL (0.1-0.3) H Aspartate Amino Transf (AST/SGOT) 53 U/L (5-40) H Alanine Aminotransferase (ALT/SGPT) 40 U/L (3-33) H Alkaline Phosphatase 60 U/L (35-104) Lactate Dehydrogenase 399 U/L (135-230) H Total Protein 6.2 g/dL (6.6-8.7) L Albumin 3.9 g/dL (3.5-5.2) Globulin 2.3 g/dL Albumin/Globulin Ratio 1.6 (1.0-2.7) Microbiology Date/Time Source Procedure Growth Status 12/16/16 08:30 Blood Blood Culture - Preliminary NO GROWTH AFTER 48 HOURS Resulted 12/16/16 08:15 Blood Blood Culture - Preliminary NO GROWTH AFTER 48 HOURS Resulted 12/16/16 13:23 Sputum Gram Stain - Final Complete 12/16/16 13:23 Sputum Sputum Culture - Final NORMAL UPPER RESPIRATORY LORI AT 48 ... Complete Intake and Output 12/17/16 12/18/16 19:00 07:00 Intake Total 1290 ml 500 ml Output Total 200 ml Balance 1090 ml 500 ml Intake Oral 240 ml 500 ml IV Total 1050 ml Output Emesis 200 ml # Voids 2 2 Objective General: alert, cooperative, no distress, appears stated age Head: normocephalic, without obvious abnormality, atraumatic Eyes: conjunctivae/corneas clear. PERRL, EOM's intact Throat: lips, mucosa, and tongue normal. MMM Neck: supple, symmetrical, trachea midline, and no JVD Lungs: clear to auscultation bilaterally; few wheezes Heart: regular rate and rhythm, S1, S2 normal, no murmur, click, rub or gallop Abdomen: soft, non-tender, non-distended, bowel sounds normal; no masses or organomegaly Extremities: extremities normal, atraumatic, no cyanosis or edema Pulses: 2+ and symmetric Skin: skin color, texture, turgor normal; no rashes or lesions Neurologic: grossly normal, no focal deficits Assessment/Plan Problem List: (1) Bipolar depression (2) Sickle cell anemia with pain Assessment & Plan: See heme consult. Pain management and IV hydration. (3) Leukocytosis, unspecified (4) Sickle cell disease (5) Bronchitis Assessment & Plan: see ID consult. Cont zosyn for now. (6) Upper respiratory infection (7) Sickle cell crisis Status: progressing CURTIS PARRISH Dec 18, 2016 13:31
--- NOTE | 2016-12-18 19:03 | General Progress Note ---
Assessment/Plan Assessment/Plan Assessment: # Sickle cell crisis with frequent crisis in the past # Anemia 2/2 sickle cell disease # Leukocytosis 2/2 crisis v underlying infection--counts decreasing on abx # Reticulocytosis # Fevers/Chills # Malnutrition # Weakness Recs: - Retic is elevated consistent with crisis - Anemia w/u has been ordered - Have ordered for hemoglobin electropheresis to confirm dx - Spirometry to continue, O2 therapy - IVF as needed - Pain control - Continue hydroxydurea - Appreciate psych followup - Hgb goal >7 - Appreciate consultation! Subjective Constitutional: Reports: chills, malaise HEENT: Reports: no symptoms Cardiovascular: Reports: no symptoms Respiratory: Reports: no symptoms Gastrointestinal/Abdominal: Reports: nausea, vomiting Genitourinary: Reports: no symptoms Neurologic/Psychiatric: Reports: no symptoms Endocrine: Reports: no symptoms Hematologic/Lymphatic: Reports: anemia Allergies: Coded Allergies: CODEINE (Verified Allergy, Severe, 07/05/16) Throat closes up and face swells, Spoke with patient has no allery to hydromorphone KETOROLAC (Verified Allergy, Severe, 07/05/16) Throat closes up and face swells Subjective pt not bleeding Objective Last 24 Hour Vital Signs Date Time Temp Pulse Resp B/P Pulse Ox O2 Delivery O2 Flow Rate FiO2 12/18/16 15:35 89 20 100 Simple Mask 6.0 12/18/16 15:30 87 18 98 Simple Mask 6.0 12/18/16 12:00 97.8 91 16 129/71 92 Room Air 12/18/16 08:00 98.6 80 18 115/71 94 Nasal Cannula 3.0 12/18/16 07:43 97.7 12/18/16 04:00 98.2 78 18 116/56 93 Nasal Cannula 3.0 12/18/16 00:00 97.9 75 18 109/56 93 Room Air 12/17/16 21:00 97.7 69 16 106/61 93 Nasal Cannula 2.0 Intake and Output 12/17/16 12/18/16 19:00 07:00 Intake Total 1290 ml 500 ml Output Total 200 ml Balance 1090 ml 500 ml Intake Oral 240 ml 500 ml IV Total 1050 ml Output Emesis 200 ml # Voids 2 2 Laboratory Tests 12/18/16 04:45: White Blood Count 12.9H, Red Blood Count 2.10L, Hemoglobin 7.8L, Hematocrit 21.9L, Mean Corpuscular Volume 105H, Mean Corpuscular Hemoglobin 37.2H, Mean Corpuscular Hemoglobin Concent 35.6, Red Cell Distribution Width 23.6H, Platelet Count 321, Mean Platelet Volume 5.9L, Neutrophils (%) (Auto) , Lymphocytes (%) (Auto) , Monocytes (%) (Auto) , Eosinophils (%) (Auto) , Basophils (%) (Auto) , Differential Total Cells Counted 100, Neutrophils % ( Manual) 63, Lymphocytes % (Manual) 26, Monocytes % (Manual) 7, Eosinophils % ( Manual) 4H, Basophils % (Manual) 0, Band Neutrophils 0, Nucleated Red Blood Cells 2, Platelet Estimate Adequate, Platelet Morphology Normal, Polychromasia 2 +, Hypochromasia 1+, Macrocytosis 1+, Sickle Cells 2+H, Sodium Level 140, Potassium Level 4.3, Chloride Level 102, Carbon Dioxide Level 25, Anion Gap 13, Blood Urea Nitrogen 5L, Creatinine 0.4L, Estimat Glomerular Filtration Rate > 60 , Glucose Level 77, Calcium Level 8.8, Total Bilirubin 2.9H, Direct Bilirubin 0.4H, Aspartate Amino Transf (AST/SGOT) 53H, Alanine Aminotransferase (ALT/SGPT ) 40H, Alkaline Phosphatase 60, Lactate Dehydrogenase 399H, Total Protein 6.2L, Albumin 3.9, Globulin 2.3, Albumin/Globulin Ratio 1.6 Height (Feet): 5 Height (Inches): 9.00 Weight (Pounds): 154 General Appearance: mild distress EENT: PERRL/EOMI Neck: non-tender Cardiovascular: normal peripheral pulses Respiratory/Chest: chest wall non-tender Abdomen: normal bowel sounds Extremities: normal range of motion Edema: no edema noted Leg (L), no edema noted Leg (R), no edema noted Pedal (L) , no edema noted Pedal (R) Neurologic: dry cell tester II-XII grossly normal OTTO KRAUS Dec 18, 2016 19:03
[2016-12-18 21:12] VITALS: BP 111/62
[2016-12-19] MEDS: DiphenhydrAMINE 50mg/ml Inj IVP PRN ×3 (00:20→09:38)
[2016-12-19 04:00] VITALS: BP 101/59
[2016-12-19 05:40] LABS: MEAN CORPUSCULAR HEMOGLOBIN 36.5 PG (27.0-31.0); MEAN CORPUSCULAR HGB CONC 34.6 G/DL (32.0-36.0); MEAN CORPUSCULAR VOLUME 106 FL (80-99); MEAN PLATELET VOLUME 5.9 FL (6.5-10.1); PLATELET COUNT 328 K/UL (150-450); RED BLOOD COUNT 2.17 M/UL (4.20-5.40); RED CELL DISTRIBUTION WIDTH 23.9 % (11.6-14.8); WHITE BLOOD COUNT 13.9 K/UL (4.8-10.8)
[2016-12-19 06:13] LABS: ANION GAP 14 (5-15); CALCIUM 9.1 mg/dL (8.6-10.2); CARBON DIOXIDE 26 mEQ/L (20-30); CHLORIDE 100 mEQ/L (98-107); CREATININE 0.4 mg/dL (0.5-0.9); GLOMERULAR FILTRATION RATE > 60 mL/min (>60); HEMOLYSIS 13; MAGNESIUM 1.5 mg/dL (1.7-2.5); POTASSIUM 4.1 mEQ/L (3.4-4.9); SODIUM 140 mEQ/L (135-145)
[2016-12-19 07:51] LABS: BASOPHILS % (MANUAL) 1 % (0-2); EOSINOPHILS % (MANUAL) 1 % (0-3); LYMPHOCYTES % (MANUAL) 32 % (20-45); NEUTROPHILS % (MANUAL) 51 % (45-75); NUCLEATED RED BLOOD CELLS 2 /100 WBC; TOTAL CELLS COUNTED 100
[2016-12-19 07:52] LABS: ANISOCYTOSIS 4+; BAND NEUTROPHILS % (MANUAL) 0 % (0-8); HYPOCHROMASIA 3+; MACROCYTES 1+; OVALOCYTES 1+; PLATELET ESTIMATE ADEQUATE; PLATELET MORPHOLOGY NORMAL; POIKILOCYTOSIS 2+; POLYCHROMASIA 2+; SPHEROCYTES 2+
[2016-12-19 08:00] VITALS: BP 105/58
[2016-12-19] MEDS: Sertraline 100mg tab ORAL SCH (08:30)
[2016-12-19] MEDS: Heparin 5000 units/ml inj SUBQ SCH (08:39)
[2016-12-19] MEDS ORDERED: 1/2 NS 1000ml IV ONE (11:26)
--- NOTE | 2016-12-19 12:25 | Pulmonology Progress Note ---
Assessment/Plan Assessment/Plan ASSESSMENT bronchitis URI sickle cell disease, possible sickle cell crisis anemia elevated transaminase ( chronic) hypomagnesemia PLAN OF CARE [facility] floor IVF O2 HHN prn sputum cx negative, blood cx preliminary negative empiric abx antitussive prn CXR negative pain management monitor HH. goal to keep Hgb above 7 heme follows LDH still high monitor LFT , elevated LFT likely 2 to increased hemolysis ( chronic) Mg replaced, pending for this am nutritional support dc plan as per PMD Of noted: the time of this note does not correspond to the actual time the patient was seen. the kashif was seen at around 0930 this am case discussed and evaluated by supervising physician Subjective Allergies: Coded Allergies: CODEINE (Verified Allergy, Severe, 07/05/16) Throat closes up and face swells, Spoke with patient has no allery to hydromorphone KETOROLAC (Verified Allergy, Severe, 07/05/16) Throat closes up and face swells Subjective leukocytosis trending down, afebrile on RA sat stable denies SOB, chest pain, cough pain controlled Objective Last 24 Hour Vital Signs Date Time Temp Pulse Resp B/P Pulse Ox O2 Delivery O2 Flow Rate FiO2 12/19/16 08:00 98.2 75 20 105/58 99 Room Air 12/19/16 04:00 97.9 72 18 101/59 92 Room Air 12/18/16 21:12 98.1 79 18 111/62 98 Room Air 12/18/16 15:35 89 20 100 Simple Mask 6.0 12/18/16 15:30 87 18 98 Simple Mask 6.0 Intake and Output 12/18/16 12/19/16 19:00 07:00 Intake Total 775 ml 1475 ml Balance 775 ml 1475 ml Intake Oral 600 ml 800 ml IV Total 175 ml 675 ml # Voids 2 2 Objective General Appearance: WD/WN, no acute distress, other - A/A/O x 3 female HEENT: normocephalic, atraumatic, anicteric, mucous membranes moist Respiratory/Chest: lungs clear - with mdoerate air entry , no respiratory distress, no accessory muscle use Cardiovascular: normal rate, regular rhythm Abdomen: normal bowel sounds, soft, non tender, non distended Genitourinary: normal external genitalia Extremities: no edema, pedal pulses normal Neurologic/Psychiatric: no motor/sensory deficits, alert, oriented x 3, responsive Musculoskeletal: normal muscle bulk Microbiology Date/Time Source Procedure Growth Status 12/16/16 13:23 Sputum Gram Stain - Final Complete 12/16/16 13:23 Sputum Sputum Culture - Final NORMAL UPPER RESPIRATORY LORI AT 48 ... Complete 12/18/16 06:25 Urine,Clean Catch Urine Culture - Preliminary NO GROWTH Resulted Laboratory Tests 12/19/16 04:30: White Blood Count 13.9H, Red Blood Count 2.17L, Hemoglobin 7.9L, Hematocrit 22.9L, Mean Corpuscular Volume 106H, Mean Corpuscular Hemoglobin 36.5H, Mean Corpuscular Hemoglobin Concent 34.6, Red Cell Distribution Width 23.9H, Platelet Count 328, Mean Platelet Volume 5.9L, Neutrophils (%) (Auto) , Lymphocytes (%) (Auto) , Monocytes (%) (Auto) , Eosinophils (%) (Auto) , Basophils (%) (Auto) , Differential Total Cells Counted 100, Neutrophils % ( Manual) 51, Lymphocytes % (Manual) 32, Monocytes % (Manual) 15H, Eosinophils % ( Manual) 1, Basophils % (Manual) 1, Band Neutrophils 0, Nucleated Red Blood Cells 2, Platelet Estimate Adequate, Platelet Morphology Normal, Polychromasia 2 +, Hypochromasia 3+, Poikilocytosis 2+, Anisocytosis 4+, Macrocytosis 1+, Spherocytes 2+, Ovalocytes 1+, Sodium Level 140, Potassium Level 4.1, Chloride Level 100, Carbon Dioxide Level 26, Anion Gap 14, Blood Urea Nitrogen 4L, Creatinine 0.4L, Estimat Glomerular Filtration Rate > 60, Glucose Level 116H, Calcium Level 9.1, Magnesium Level 1.5L, Lactate Dehydrogenase 397H Mely Carrillo NP ([facility]te[facility]) Dec 19, 2016 12:25
--- NOTE | 2016-12-19 14:12 | Internal Med Progress Note ---
Subjective Date of Service: Dec 19, 2016 Physician Name Fermín Parrish Attending Physician Scar Metz MD Allergies: Coded Allergies: CODEINE (Verified Allergy, Severe, 07/05/16) Throat closes up and face swells, Spoke with patient has no allery to hydromorphone KETOROLAC (Verified Allergy, Severe, 07/05/16) Throat closes up and face swells ROS Limited/Unobtainable: No Constitutional: Reports: no symptoms HEENT: Reports: no symptoms Cardiovascular: Reports: no symptoms Respiratory: Reports: no symptoms Gastrointestinal/Abdominal: Reports: no symptoms Genitourinary: Reports: no symptoms Neurologic/Psychiatric: Reports: no symptoms Subjective 21 YO F admitted with cough and fever. Cover for Int Med-Dr Metz. Cough improving per patient. Await discharge home today Objective Last Vital Signs Date Time Temp Pulse Resp B/P Pulse Ox O2 Delivery O2 Flow Rate FiO2 12/19/16 08:00 98.2 75 20 105/58 99 Room Air 12/18/16 15:35 6.0 Laboratory Tests Test 12/19/16 04:30 White Blood Count 13.9 K/UL (4.8-10.8) H Red Blood Count 2.17 M/UL (4.20-5.40) L Hemoglobin 7.9 G/DL (12.0-16.0) L Hematocrit 22.9 % (37.0-47.0) L Mean Corpuscular Volume 106 FL (80-99) H Mean Corpuscular Hemoglobin 36.5 PG (27.0-31.0) H Mean Corpuscular Hemoglobin Concent 34.6 G/DL (32.0-36.0) Red Cell Distribution Width 23.9 % (11.6-14.8) H Platelet Count 328 K/UL (150-450) Mean Platelet Volume 5.9 FL (6.5-10.1) L Neutrophils (%) (Auto) % (45.0-75.0) Lymphocytes (%) (Auto) % (20.0-45.0) Monocytes (%) (Auto) % (1.0-10.0) Eosinophils (%) (Auto) % (0.0-3.0) Basophils (%) (Auto) % (0.0-2.0) Differential Total Cells Counted 100 Neutrophils % (Manual) 51 % (45-75) Lymphocytes % (Manual) 32 % (20-45) Monocytes % (Manual) 15 % (1-10) H Eosinophils % (Manual) 1 % (0-3) Basophils % (Manual) 1 % (0-2) Band Neutrophils 0 % (0-8) Nucleated Red Blood Cells 2 /100 WBC Platelet Estimate Adequate Platelet Morphology Normal Polychromasia 2+ Hypochromasia 3+ Poikilocytosis 2+ Anisocytosis 4+ Macrocytosis 1+ Spherocytes 2+ Ovalocytes 1+ Sodium Level 140 mEQ/L (135-145) Potassium Level 4.1 mEQ/L (3.4-4.9) Chloride Level 100 mEQ/L (98-107) Carbon Dioxide Level 26 mEQ/L (20-30) Anion Gap 14 (5-15) Blood Urea Nitrogen 4 mg/dL (7-23) L Creatinine 0.4 mg/dL (0.5-0.9) L Estimat Glomerular Filtration Rate > 60 mL/min (>60) Glucose Level 116 mg/dL (74-106) H Calcium Level 9.1 mg/dL (8.6-10.2) Magnesium Level 1.5 mg/dL (1.7-2.5) L Lactate Dehydrogenase 397 U/L (135-230) H Microbiology Date/Time Source Procedure Growth Status 12/18/16 06:25 Urine,Clean Catch Urine Culture - Preliminary NO GROWTH Resulted Intake and Output 12/18/16 12/19/16 19:00 07:00 Intake Total 775 ml 1475 ml Balance 775 ml 1475 ml Intake Oral 600 ml 800 ml IV Total 175 ml 675 ml # Voids 2 2 Objective General: alert, cooperative, no distress, appears stated age Head: normocephalic, without obvious abnormality, atraumatic Eyes: conjunctivae/corneas clear. PERRL, EOM's intact Throat: lips, mucosa, and tongue normal. MMM Neck: supple, symmetrical, trachea midline, and no JVD Lungs: clear to auscultation bilaterally; few wheezes Heart: regular rate and rhythm, S1, S2 normal, no murmur, click, rub or gallop Abdomen: soft, non-tender, non-distended, bowel sounds normal; no masses or organomegaly Extremities: extremities normal, atraumatic, no cyanosis or edema Pulses: 2+ and symmetric Skin: skin color, texture, turgor normal; no rashes or lesions Neurologic: grossly normal, no focal deficits Assessment/Plan Problem List: (1) Bipolar depression (2) Sickle cell anemia with pain Assessment & Plan: See heme consult. Pain management and IV hydration. (3) Leukocytosis, unspecified (4) Sickle cell disease (5) Bronchitis Assessment & Plan: see ID consult. Cont zosyn for now. (6) Upper respiratory infection (7) Sickle cell crisis Assessment/Plan Discharge home today FERMÍN PARRISH Dec 19, 2016 14:12
--- NOTE | 2016-12-19 14:13 | General Progress Note ---
Assessment/Plan Assessment/Plan Assessment: # Sickle cell crisis with frequent crisis in the past - improved to be discharged today # Anemia 2/2 sickle cell disease # Leukocytosis 2/2 crisis v underlying infection--counts decreasing on abx # Reticulocytosis # Fevers/Chills # Malnutrition # Weakness Recs: - Retic is elevated consistent with crisis - Anemia w/u has been ordered - Have ordered for hemoglobin electropheresis to confirm dx - Spirometry to continue, O2 therapy - IVF as needed - Pain control - Continue hydroxydurea - Appreciate psych followup - Hgb goal >7 - Appreciate consultation! stable for d/c today per heme Subjective Date patient seen: Dec 19, 2016 Time patient seen: 05:00 Constitutional: Reports: no symptoms HEENT: Reports: no symptoms Cardiovascular: Reports: no symptoms Respiratory: Reports: no symptoms Gastrointestinal/Abdominal: Reports: no symptoms Genitourinary: Reports: no symptoms Neurologic/Psychiatric: Reports: no symptoms Endocrine: Reports: no symptoms Hematologic/Lymphatic: Reports: anemia Allergies: Coded Allergies: CODEINE (Verified Allergy, Severe, 07/05/16) Throat closes up and face swells, Spoke with patient has no allery to hydromorphone KETOROLAC (Verified Allergy, Severe, 07/05/16) Throat closes up and face swells Subjective stable no events, pain better, d/c today Objective Last 24 Hour Vital Signs Date Time Temp Pulse Resp B/P Pulse Ox O2 Delivery O2 Flow Rate FiO2 12/19/16 08:00 98.2 75 20 105/58 99 Room Air 12/19/16 04:00 97.9 72 18 101/59 92 Room Air 12/18/16 21:12 98.1 79 18 111/62 98 Room Air 12/18/16 15:35 89 20 100 Simple Mask 6.0 12/18/16 15:30 87 18 98 Simple Mask 6.0 Intake and Output 12/18/16 12/19/16 19:00 07:00 Intake Total 775 ml 1475 ml Balance 775 ml 1475 ml Intake Oral 600 ml 800 ml IV Total 175 ml 675 ml # Voids 2 2 Laboratory Tests 12/19/16 04:30: White Blood Count 13.9H, Red Blood Count 2.17L, Hemoglobin 7.9L, Hematocrit 22.9L, Mean Corpuscular Volume 106H, Mean Corpuscular Hemoglobin 36.5H, Mean Corpuscular Hemoglobin Concent 34.6, Red Cell Distribution Width 23.9H, Platelet Count 328, Mean Platelet Volume 5.9L, Neutrophils (%) (Auto) , Lymphocytes (%) (Auto) , Monocytes (%) (Auto) , Eosinophils (%) (Auto) , Basophils (%) (Auto) , Differential Total Cells Counted 100, Neutrophils % ( Manual) 51, Lymphocytes % (Manual) 32, Monocytes % (Manual) 15H, Eosinophils % ( Manual) 1, Basophils % (Manual) 1, Band Neutrophils 0, Nucleated Red Blood Cells 2, Platelet Estimate Adequate, Platelet Morphology Normal, Polychromasia 2 +, Hypochromasia 3+, Poikilocytosis 2+, Anisocytosis 4+, Macrocytosis 1+, Spherocytes 2+, Ovalocytes 1+, Sodium Level 140, Potassium Level 4.1, Chloride Level 100, Carbon Dioxide Level 26, Anion Gap 14, Blood Urea Nitrogen 4L, Creatinine 0.4L, Estimat Glomerular Filtration Rate > 60, Glucose Level 116H, Calcium Level 9.1, Magnesium Level 1.5L, Lactate Dehydrogenase 397H Height (Feet): 5 Height (Inches): 9.00 Weight (Pounds): 154 General Appearance: no apparent distress EENT: TMs normal Neck: normal alignment Cardiovascular: normal rate, no JVD Respiratory/Chest: no accessory muscle use Abdomen: soft Extremities: non-tender Edema: 1+ Leg (L), 1+ Leg (R) Neurologic: alert Skin: normal pigmentation Trever Álvarez Dec 19, 2016 14:13
[2016-12-21] MEDS ORDERED: MAGNESIUM OXID500 M2 PO (08:12)
--- NOTE | 2016-12-21 08:13 | Discharge Summary ---
Discharge Summary Hospital Course Date of Admission Dec 16, 2016 at 03:14 Date of Discharge Dec 19, 2016 at 11:27 Admitting Diagnosis acute chest syndrome, sickle cell crisis HPI Danelle Pagan is a 21 year old female who was admitted on Dec 16, 2016 at 03: 14 for Acute Chest Syndrome/Sickle Cell Crisis Hospital Course dc summary #[id number] Discharge Medications New Medications: Magnesium Oxide (Magnesium Oxide) 500 Mg Capsule 500 MG PO DAILY, #3 CAP take daily x 3 days Continued Medications: Albuterol Sulfate* (Albuterol Sulfate Hhn*) 2.5 Mg/3 Ml Vial.neb Unknown Dose INH Q4H PRN for Shortness of Breath, EA Cyanocobalamin (Vitamin B-12) (Vitamin B12) 2,500 Mcg Tablet 2500 MCG PO DAILY, TAB Diphenhydramine HCl (Diphenhydramine HCl) 50 Mg Cap 50 MG ORAL Q6H PRN for Itching, CAP Folic Acid* (Folic Acid*) 1 Mg Tablet 1 MG ORAL DAILY, TAB Hydromorphone HCl (Dilaudid) 4 Mg Tab 4 MG ORAL Q4H, #20 TAB 0 Refills Ibuprofen* (Motrin*) 800 Mg Tablet 800 MG ORAL Q8H, #30 TAB 0 Refills Methadone Hcl* (Methadone*) 5 Mg Tablet 5 MG PO BID, #10 TAB 0 Refills Mometasone Furoate (Nasonex) 17 Gm [place].pump Unknown Dose NASAL DAILY, GM 0 Refills Ondansetron (Zofran) 4 Mg Tab 4 MG ORAL Q6H PRN for Nausea & Vomiting, TAB Sertraline Hcl* (Zoloft*) 100 Mg Tablet 100 MG ORAL DAILY, TAB Sumatriptan Succinate* (Imitrex*) 50 Mg Tablet Unknown Dose ORAL DAILY PRN MIGRAINE, TAB Vitamin D (Vitamin D3) 400 Unit Tablet 400 UNITS ORAL DAILY, TAB [advair] () INH BID Discharge Condition Upon Discharge: stable Discharge Disposition Patient was discharged to Home () Discharge Diagnoses: Gerardo (Tricia)Mely NP Dec 21, 2016 08:13
--- NOTE | 2016-12-21 09:48 | Discharge Summary ---
DATE OF ADMISSION: 12/16/2016 DATE OF DISCHARGE: 12/19/2016 REASON FOR ADMISSION: 21-year-old female, with sickle cell disease, presented with two to three days of subjective fevers/chills, cough, chest pain and chest congestion. No foreign travel or sick contacts. No joint pain. Workup in the emergency room revealed no fever and stable vital signs. The patient was placed on supplemental oxygen. Pulse oximetry was stable. Chest x-ray revealed no obvious lobar pneumonia. The patient with leukocytosis of 18. Anemic, consistent with sickle cell disease anemia. Reticulocyte count consistent with previous count. Elevated LFT, but seen previously as well. Empiric antibiotic given in the emergency room. Blood culture drawn and nebulizing treatment given. The patient was medicated for pain. EKG revealed normal sinus rhythm. No ischemic changes. The patient admitted for further management. ADMITTING DIAGNOSES: 1. Sickle cell disease. 2. Bronchitis. 3. Upper respiratory infection. 4. Anemia. HOSPITAL COURSE: The patient admitted to Med/Surg floor. The patient was on supplemental oxygen and nebulizing treatment as needed. The patient started on the IV fluids. Sputum culture negative. Blood culture negative. The patient was on empiric antibiotics. Antitussive provided as needed. Chest x-ray was negative for any evidence of acute cardiopulmonary disease. Pain management provided. Hemoglobin and hematocrit were closely monitored. Goal was to keep her hemoglobin above 7. Casserole Preparer and ID both followed the patient. LDH monitored , was in 300 range . LFT elevated, likely secondary to increased hemolysis ( chronic LFT elevation) Magnesium replaced. Nutritional support provided. The patient was stable for discharge. DISCHARGE DIAGNOSES: 1. Bronchitis. 2. Upper respiratory infection. 3. Sickle cell disease, possible sickle cell crisis. 4. Anemia. 5. Elevated transaminase. 6. Hypomagnesemia. DISCHARGE MEDICATIONS: See medication reconciliation list. DISCHARGE INSTRUCTIONS: The patient discharged home. Follow up with the primary medical doctor and Hematology. Scar Metz M.D. Mely Carrillo ([facility] N.PLeah DR: Fidelia JOB#: [id number] CC: HUI
== END 2016-12-19 11:27 | disposition home or self-care (01) | DRG 662 ==
LOC: EMR 01:38 → EDBEDREQ 03:06 → 3E 03:14 → EDBEDREQ 03:55
DX: D57.00 Hb-SS disease with crisis, unspecified (principal); E46 Unspecified protein-calorie malnutrition; E83.42 Hypomagnesemia; J40 Bronchitis, not specified as acute or chronic; D64.9 Anemia, unspecified; J06.9 Acute upper respiratory infection, unspecified; Z88.6 Allergy status to analgesic agent; Z88.8 Allergy status to other drugs, medicaments and biological substances; F31.9 Bipolar disorder, unspecified
CPT/HCPCS: 36415; 71010; 80048; 80053; 82248; 83615; 83735; 84100; 85007; 85025; 85044; 87040; 87070; 87081; 87086; 87205; 94640; 94664; J2405; J7620

== ENCOUNTER 2017-01-03 23:03 | Emergency (ER) | payer MEDICAID ==
[~2017-01-03] VITALS: Ht 175.3 cm; Wt 69.4 kg
[~2017-01-03 23:03] MED LIST changes: +MAGNESIUM OXID500 M2 PO; +advair INH
--- NOTE | 2017-01-04 01:11 | Emergency Room Report ---
History of Present Illness General Chief Complaint: Pain Source: Patient Present Illness HPI Is a 21-year-old female with history of sickle cell. She gets frequent a sickle cell attack. She presents with chief complaint of lower back pain and leg pain. Similar to previous sickle cell pain. She treated to her menstrual flow. She is on her period right now. No nausea no vomiting. Pain is 10 out of 10. She take Dilaudid at home. No other complaint. Allergies: Coded Allergies: CODEINE (Verified Allergy, Severe, 07/05/16) Throat closes up and face swells, Spoke with patient has no allery to hydromorphone KETOROLAC (Verified Allergy, Severe, 07/05/16) Throat closes up and face swells Patient History Past Medical History: see triage record, old chart reviewed Past Surgical History: other Pertinent Family History: none Social History: Denies: smoking Last Menstrual Period: NOW Now: No Immunizations: other Reviewed Nursing Documentation: PMH: Agreed, PSxH: Agreed Nursing Documentation-PMH Hx Cardiac Problems: Yes - sickle cell Hx Pacemaker: No Hx Asthma: Yes Hx COPD: No Hx Diabetes: No Hx Cancer: No Hx Gastrointestinal Problems: No Hx Dialysis: No Hx Cerebrovascular Accident: No Hx Transient Ischemic Attacks: Yes - 05/2016 Hx Dementia: No Hx Alzheimer's Disease: No Hx Parkinson's Disease: No Hx Meningitis: No Hx Encephalitis: No Hx Seizures: No Hx Epilepsy: No Hx Multiple Sclerosis: No Hx Cerebral Palsy: No Hx Amyotrophic Lat Sclerosis: No Hx Guillian-[place] Syndrome: No Hx Paralysis: No Hx Peripheral Neuropathy: No Hx Spinal Cord Injury: No Hx Head Trauma: No Hx Traumatic Brain Injury: No Hx Memory Loss: No Hx Concentration Difficulty: No Hx Tremors: No Hx Vertigo: No Hx Dizziness: No Hx Headaches: Yes Hx Weakness: Yes Review of Systems Eye: Denies: blurred vision, eye pain ENT: Denies: ear pain, nose congestion, throat swelling Respiratory: Denies: cough, shortness of breath Cardiovascular: Denies: chest pain, palpitations Gastrointestinal: Denies: abdominal pain, diarrhea, nausea, vomiting Musculoskeletal: Reports: back pain, Denies: joint pain Skin: Denies: rash Neurological: Denies: headache, numbness Endocrine: Denies: increased thirst, increased urine Hematologic/Lymphatic: Denies: easy bruising All Other Systems: negative except mentioned in HPI Physical Exam Vital Signs Date Time Temp Pulse Resp B/P Pulse Ox O2 Delivery O2 Flow Rate FiO2 01/03/17 23:32 97.9 85 18 109/67 96 Room Air vitals normal Sp02 EP Interpretation: reviewed, normal General Appearance: well appearing, no apparent distress, alert, other - Patient was sleeping. I had to wake her up. Head: normocephalic, atraumatic Eyes: bilateral eye EOMI, bilateral eye PERRL ENT: hearing grossly normal, normal pharynx Neck: full range of motion, supple, no meningismus Respiratory: chest non-tender, lungs clear, normal breath sounds Cardiovascular #1: regular rate, rhythm, no murmur Gastrointestinal: normal bowel sounds, non tender, no mass, no organomegaly, no bruit, non-distended Musculoskeletal: back normal, gait/station normal, normal range of motion Psychiatric: mood/affect normal Skin: warm/dry Medical Decision Making Diagnostic Impression: Primary Impression: Sickle cell crisis Additional Impression: Opioid dependence Qualified Codes: F11.20 - Opioid dependence, uncomplicated ER Course Patient presents with sickle cell crisis. She looks comfortable. No evidence of acute chest syndrome. No evidence of aplastic crisis. She had recent blood work with laceration. We'll discharge home. She felt better now. Last Vital Signs Date Time Temp Pulse Resp B/P Pulse Ox O2 Delivery O2 Flow Rate FiO2 01/03/17 23:32 97.9 85 18 109/67 96 Room Air Status: improved Disposition: HOME, SELF-CARE Condition: Stable Referrals: NOT CHOSEN IPA/,REFERRING (PCP) Additional Instructions: Followup with your DrLeah in 7 days. Return if worse. MARINA NICHOLAS M.D. January 04, 2017 01:11
[2017-01-04 01:17] VITALS: BP 116/72
[2017-01-04 01:18] VITALS: BP 116/72
== END 2017-01-04 01:19 | disposition home or self-care (01) ==
LOC: EMR 23:45
DX: D57.00 Hb-SS disease with crisis, unspecified (principal); M54.5 Low back pain; F11.20 Opioid dependence, uncomplicated; J45.909 Unspecified asthma, uncomplicated; Z88.6 Allergy status to analgesic agent; Z88.8 Allergy status to other drugs, medicaments and biological substances
CPT/HCPCS: 96372; 99283; J1170

== ENCOUNTER 2017-01-17 12:00 | Inpatient (IN) | payer MEDICAID ==
[~2017-01-17] VITALS: Ht 175.3 cm; Wt 69.9 kg
[2017-01-17] MEDS ORDERED: HYDROmorphone 2 MG, DiphenhydrAMINE 25 MG in NS 55 ML IV ONE (12:45)
[2017-01-17] MEDS ORDERED: DiphenhydrAMINE 50mg/ml Inj ONE (13:04)
[2017-01-17 13:27] LABS: ANION GAP 16 (5-15); CALCIUM 9.5 mg/dL (8.6-10.2); CARBON DIOXIDE 24 mEQ/L (20-30); CHLORIDE 100 mEQ/L (98-107); CREATININE 0.4 mg/dL (0.5-0.9); GLOMERULAR FILTRATION RATE > 60 mL/min (>60); HEMOLYSIS 7; POTASSIUM 4.3 mEQ/L (3.4-4.9); SODIUM 140 mEQ/L (135-145)
[2017-01-17 13:32] LABS: EOSINOPHILS % (AUTO) 1.5 % (0.0-3.0); MEAN CORPUSCULAR HEMOGLOBIN 39.4 PG (27.0-31.0); MEAN CORPUSCULAR HGB CONC 37.3 G/DL (32.0-36.0); MEAN CORPUSCULAR VOLUME 106 FL (80-99); MEAN PLATELET VOLUME 6.6 FL (6.5-10.1); MONOCYTES % (AUTO) 11.4 % (1.0-10.0); PLATELET COUNT 278 K/UL (150-450); RED CELL DISTRIBUTION WIDTH 22.5 % (11.6-14.8); WHITE BLOOD COUNT 13.4 K/UL (4.8-10.8)
[2017-01-17 14:04] LABS: RETICULOCYTE COUNT 16.5 % (0.0-2.0)
--- NOTE | 2017-01-17 14:18 | Emergency Room Report ---
History of Present Illness General Chief Complaint: Pain Source: Patient Present Illness HPI Patient just with complaints of ongoing diffuse bodyaches Reports that she has a bronchitis recently and feels that this is as potentially exacerbated his situation Denies any ches pain denies any shortness of breath Patient's pain is diffuse Mainly in the upper shoulders pelvic area Denies any dysuria frequency Pain is 10 out of 10 Not relieved with oral Dilaudid at home Allergies: Coded Allergies: CODEINE (Verified Allergy, Severe, 07/05/16) Throat closes up and face swells, Spoke with patient has no allery to hydromorphone KETOROLAC (Verified Allergy, Severe, 07/05/16) Throat closes up and face swells Patient History Past Medical History: see triage record Pertinent Family History: none Last Menstrual Period: 01/10/2017 Now: No : 0 Para: 0 Reviewed Nursing Documentation: PMH: Agreed, PSxH: Agreed Nursing Documentation-PMH Hx Cardiac Problems: Yes - sickle cell Hx Pacemaker: No Hx Asthma: Yes Hx COPD: No Hx Diabetes: No Hx Cancer: No Hx Gastrointestinal Problems: No Hx Dialysis: No Hx Cerebrovascular Accident: No Hx Transient Ischemic Attacks: Yes - 05/2016 Hx Dementia: No Hx Alzheimer's Disease: No Hx Parkinson's Disease: No Hx Meningitis: No Hx Encephalitis: No Hx Seizures: No Hx Epilepsy: No Hx Multiple Sclerosis: No Hx Cerebral Palsy: No Hx Amyotrophic Lat Sclerosis: No Hx Guillian-[place] Syndrome: No Hx Paralysis: No Hx Peripheral Neuropathy: No Hx Spinal Cord Injury: No Hx Head Trauma: No Hx Traumatic Brain Injury: No Hx Memory Loss: No Hx Concentration Difficulty: No Hx Tremors: No Hx Vertigo: No Hx Dizziness: No Hx Headaches: Yes Hx Weakness: Yes Review of Systems All Other Systems: negative except mentioned in HPI Physical Exam Vital Signs Date Time Temp Pulse Resp B/P Pulse Ox O2 Delivery O2 Flow Rate FiO2 01/17/17 12:08 97.9 78 16 97/64 99 Room Air Sp02 EP Interpretation: reviewed, normal General Appearance: no apparent distress, lethargic Head: normocephalic, atraumatic Eyes: bilateral eye EOMI, bilateral eye PERRL ENT: hearing grossly normal, TMs + canals normal, uvula midline, dry mucus membranes Neck: full range of motion, supple, no meningismus, no bony tend Respiratory: lungs clear, normal breath sounds, no rhonchi, no respiratory distress, no retraction, no accessory muscle use Cardiovascular #1: normal peripheral pulses, regular rate, rhythm, no edema, no gallop, no JVD, no murmur Gastrointestinal: normal bowel sounds, non tender, soft, no mass, no organomegaly, non-distended, no guarding, no hernia, no pulsatile mass, no rebound Genitourinary: no CVA tenderness Musculoskeletal: normal inspection Neurologic: oriented x3, responsive, change management manager III-XII nml as tested, motor strength/ tone normal, sensory intact Psychiatric: mood/affect normal Skin: normal color, no rash, warm/dry, palpation normal Lymphatic: normal inspection, no adenopathy Medical Decision Making Diagnostic Impression: Primary Impression: Sickle cell crisis ER Course Patient is a fairly complex patient with multiple differential to consideration including but not limited to cardiac cardiopulmonary and vascular emergencies Given the patient's pain level IV hydration and pain medication was initiated Patient's reticulocyte count at this time is significantly high As compared to previous and it is higher than previous Given this finding the patient is admitted for further hydration and pain management Labs Test 01/17/17 13:00 White Blood Count 13.4 K/UL (4.8-10.8) Red Blood Count 2.10 M/UL (4.20-5.40) Hemoglobin 8.3 G/DL (12.0-16.0) Hematocrit 22.3 % (37.0-47.0) Mean Corpuscular Volume 106 FL (80-99) Mean Corpuscular Hemoglobin 39.4 PG (27.0-31.0) Mean Corpuscular Hemoglobin Concent 37.3 G/DL (32.0-36.0) Red Cell Distribution Width 22.5 % (11.6-14.8) Platelet Count 278 K/UL (150-450) Mean Platelet Volume 6.6 FL (6.5-10.1) Neutrophils (%) (Auto) 63.0 % (45.0-75.0) Lymphocytes (%) (Auto) 23.0 % (20.0-45.0) Monocytes (%) (Auto) 11.4 % (1.0-10.0) Eosinophils (%) (Auto) 1.5 % (0.0-3.0) Basophils (%) (Auto) 1.0 % (0.0-2.0) Reticulocyte Count 16.5 % (0.0-2.0) Sodium Level 140 mEQ/L (135-145) Potassium Level 4.3 mEQ/L (3.4-4.9) Chloride Level 100 mEQ/L (98-107) Carbon Dioxide Level 24 mEQ/L (20-30) Anion Gap 16 (5-15) Blood Urea Nitrogen 7 mg/dL (7-23) Creatinine 0.4 mg/dL (0.5-0.9) Estimat Glomerular Filtration Rate > 60 mL/min (>60) Glucose Level 96 mg/dL (74-106) Calcium Level 9.5 mg/dL (8.6-10.2) Rhythm Strip Diag. Results EP Interpretation: yes Rate: 66 Rhythm: NSR, no PVC's, no ectopy Last Vital Signs Date Time Temp Pulse Resp B/P Pulse Ox O2 Delivery O2 Flow Rate FiO2 01/17/17 12:08 97.9 78 16 97/64 99 Room Air Status: improved Disposition: ADMITTED INPATIENT Condition: Serious Referrals: MYKE TELLO (PCP) TAYLOR PARSONS D.O. January 17, 2017 14:18
[2017-01-17 14:33] VITALS: BP 109/65
[2017-01-17] MEDS ORDERED: HYDROmorphone 1mg/ml Carpuject IVP PRN ×2 (15:45→16:45)
[2017-01-17] MEDS ORDERED: Albuterol ud Inhalation HHN PRN ×2 (16:00→16:45)
[2017-01-17 16:15] VITALS: BP 111/60
[2017-01-17 16:55] VITALS: BP 112/58
[2017-01-17] MEDS: DiphenhydrAMINE 50mg/ml Inj IVP PRN (19:53)
[2017-01-17 20:00] VITALS: BP 127/53
[2017-01-17] MEDS: Heparin 5000 units/ml inj SUBQ SCH (22:00)
[2017-01-18] MEDS: DiphenhydrAMINE 50mg/ml Inj IVP PRN ×3 (01:31→13:36)
[2017-01-18] MEDS: Heparin 5000 units/ml inj SUBQ SCH ×2 (05:43→13:44)
[2017-01-18 07:02] LABS: MEAN CORPUSCULAR HEMOGLOBIN 38.5 PG (27.0-31.0); MEAN CORPUSCULAR HGB CONC 34.8 G/DL (32.0-36.0); MEAN CORPUSCULAR VOLUME 110 FL (80-99); MEAN PLATELET VOLUME 6.5 FL (6.5-10.1); PLATELET COUNT 282 K/UL (150-450); RED BLOOD COUNT 1.99 M/UL (4.20-5.40); RED CELL DISTRIBUTION WIDTH 22.8 % (11.6-14.8); WHITE BLOOD COUNT 13.9 K/UL (4.8-10.8)
[2017-01-18 07:30] LABS: ALANINE AMINOTRANSFERASE 53 U/L (3-33); ALBUMIN/GLOBULIN RATIO 1.7 (1.0-2.7); ANION GAP 12 (5-15); ASPARTATE AMINO TRANSFERASE 57 U/L (5-40); CALCIUM 9.2 mg/dL (8.6-10.2); CARBON DIOXIDE 24 mEQ/L (20-30); CHLORIDE 105 mEQ/L (98-107); CREATININE 0.4 mg/dL (0.5-0.9); GLOMERULAR FILTRATION RATE > 60 mL/min (>60); HEMOLYSIS 6; SODIUM 141 mEQ/L (135-145); TOTAL PROTEIN 6.3 g/dL (6.6-8.7)
[2017-01-18 07:44] VITALS: BP 108/65
[2017-01-18 07:48] LABS: BILIRUBIN,DIRECT 0.4 mg/dL (0.1-0.3)
[2017-01-18 08:09] LABS: MAGNESIUM 1.8 mg/dL (1.7-2.5); PHOSPHORUS 4.3 mg/dL (2.5-4.8)
[2017-01-18] MEDS ORDERED: Sertraline 100mg tab ORAL SCH ×2 (09:00)
[2017-01-18] MEDS ORDERED: Vitamin D 400 INTLU TAB ORAL SCH ×2 (09:00)
[2017-01-18 09:03] LABS: ANISOCYTOSIS 3+; BAND NEUTROPHILS % (MANUAL) 0 % (0-8); BASOPHILS % (MANUAL) 1 % (0-2); EOSINOPHILS % (MANUAL) 2 % (0-3); HYPOCHROMASIA 3+; LYMPHOCYTES % (MANUAL) 32 % (20-45); MACROCYTES 2+; NEUTROPHILS % (MANUAL) 57 % (45-75); NUCLEATED RED BLOOD CELLS 3 /100 WBC; OVALOCYTES 1+; PLATELET ESTIMATE ADEQUATE; PLATELET MORPHOLOGY NORMAL; POIKILOCYTOSIS 2+; SPHEROCYTES 2+; TOTAL CELLS COUNTED 100
[2017-01-18 11:49] VITALS: BP 106/53
[2017-01-18] MEDS ORDERED: DiphenhydrAMINE 50mg/ml Inj IVP PRN (16:15)
--- NOTE | 2017-01-20 04:52 | Discharge Summary 2 SIG ---
DATE OF ADMISSION: 01/17/2017 DATE OF DISCHARGE: 01/18/2017 BRIEF HOSPITAL COURSE: The patient is a 21-year-old female, who presented to ED complaining of ongoing diffuse body aches. Pain is 10/10 and not relieved with oral Dilaudid at home. On evaluation at ED, reticulocyte count was elevated. The patient was given IV hydration and pain medications and was admitted to medical/surgical floor. However, full treatment was not carried out as the patient signed out against medical advice. FINAL DIAGNOSIS: Sickle cell crisis. Scar Metz M.D. I have been assigned to dictate discharge summary on this account and I was not involved in the patient's management. Nat Adkins N.P. DR: YESI JOB#: [id number] CC:
== END 2017-01-18 15:54 | disposition left against medical advice (07) | DRG 662 ==
LOC: EMR 12:40 → 4W 14:25 → EDBEDREQ 14:34
DX: D57.00 Hb-SS disease with crisis, unspecified (principal); Z86.73 Personal history of transient ischemic attack (TIA), and cerebral infarction without residual deficits; Z88.6 Allergy status to analgesic agent; Z88.8 Allergy status to other drugs, medicaments and biological substances
CPT/HCPCS: 36415; 80048; 80053; 82248; 83735; 84100; 85007; 85025; 85044; 86850; 86900; 86901; 87081; 94664; J2405

== ENCOUNTER 2017-02-13 02:25 | Emergency (ER) | payer MEDICAID ==
[~2017-02-13] VITALS: Ht 175.3 cm; Wt 67.6 kg
[2017-02-13 02:35] VITALS: BP 107/65
[2017-02-13] MEDS ORDERED: HYDROCODON-ACE1 EA15 ORAL (03:22)
--- NOTE | 2017-02-13 03:22 | Emergency Room Report ---
History of Present Illness General Chief Complaint: Pain Source: Patient Present Illness HPI This is a 20-year-old female with a history of sickle cell. She has frequent exacerbation. She presents with chief complaint of sickle cell pain. Has been ongoing for last couple days. She's been out of her Dilaudid and methadone. She said that she's been healthy and did not have to see her customer success associate for refill on her medication. Is no fever or chills. Pain is to her back her arms her legs. This is typical for her. Pain is 10 out of 10. No other complaint. Allergies: Coded Allergies: CODEINE (Verified Allergy, Severe, 07/05/16) Throat closes up and face swells, Spoke with patient has no allery to hydromorphone KETOROLAC (Verified Allergy, Severe, 07/05/16) Throat closes up and face swells Patient History Past Medical History: see triage record, old chart reviewed Past Surgical History: other Pertinent Family History: none Social History: Denies: smoking Last Menstrual Period: last month Now: No Immunizations: other Reviewed Nursing Documentation: PMH: Agreed, PSxH: Agreed Nursing Documentation-PMH Past Medical History: No History, Except For Hx Cardiac Problems: Yes - sickle cell Hx Pacemaker: No Hx Asthma: Yes Hx COPD: No Hx Diabetes: No Hx Cancer: No Hx Gastrointestinal Problems: No Hx Dialysis: No Hx Cerebrovascular Accident: No Hx Transient Ischemic Attacks: Yes - 05/2016 Hx Dementia: No Hx Alzheimer's Disease: No Hx Parkinson's Disease: No Hx Meningitis: No Hx Encephalitis: No Hx Seizures: No Hx Epilepsy: No Hx Multiple Sclerosis: No Hx Cerebral Palsy: No Hx Amyotrophic Lat Sclerosis: No Hx Guillian-[place] Syndrome: No Hx Paralysis: No Hx Peripheral Neuropathy: No Hx Spinal Cord Injury: No Hx Head Trauma: No Hx Traumatic Brain Injury: No Hx Memory Loss: No Hx Concentration Difficulty: No Hx Tremors: No Hx Vertigo: No Hx Dizziness: No Hx Headaches: Yes Hx Weakness: Yes Review of Systems Eye: Denies: blurred vision, eye pain ENT: Denies: ear pain, nose congestion, throat swelling Respiratory: Denies: cough, shortness of breath Cardiovascular: Denies: chest pain, palpitations Gastrointestinal: Denies: abdominal pain, diarrhea, nausea, vomiting Musculoskeletal: Reports: back pain, joint pain, muscle pain Skin: Denies: rash Neurological: Denies: headache, numbness Endocrine: Denies: increased thirst, increased urine Hematologic/Lymphatic: Denies: easy bruising All Other Systems: negative except mentioned in HPI Physical Exam Vital Signs Date Time Temp Pulse Resp B/P Pulse Ox O2 Delivery O2 Flow Rate FiO2 02/13/17 02:31 98.2 78 16 107/65 100 Room Air vitals normal Sp02 EP Interpretation: reviewed, normal General Appearance: well appearing, no apparent distress, alert Head: normocephalic, atraumatic Eyes: bilateral eye EOMI, bilateral eye PERRL ENT: hearing grossly normal, normal pharynx Neck: full range of motion, supple, no meningismus Respiratory: chest non-tender, lungs clear, normal breath sounds Cardiovascular #1: regular rate, rhythm, no murmur Gastrointestinal: normal bowel sounds, non tender, no mass, no organomegaly, no bruit, non-distended Musculoskeletal: back normal, gait/station normal, normal range of motion Psychiatric: mood/affect normal Skin: warm/dry Medical Decision Making Diagnostic Impression: Primary Impression: Sickle cell crisis Additional Impression: Opioid dependence Qualified Codes: F11.20 - Opioid dependence, uncomplicated ER Course Patient is as with exacerbation of her chronic pain. She looks very comfortable. No evidence of infection. Explained to the patient that I would not refill her methadone and Dilaudid. She need to see her customer success associate for refill on that. We'll give her short prescription of [place]. Chest X-Ray Diagnostic Results Chest X-Ray Ordered: No Last Vital Signs Date Time Temp Pulse Resp B/P Pulse Ox O2 Delivery O2 Flow Rate FiO2 02/13/17 02:35 98.2 78 16 107/65 100 Room Air Status: improved Disposition: HOME, SELF-CARE Condition: Stable Scripts Hydrocodone/Acetaminophen 5-325* (HYDROCODONE/ACETAMINOPHEN 5-325*) 1 Each Tablet 1 TAB ORAL Q6H Y for For Pain, #15 TAB 0 Refills Prov: MARINA NICHOLAS M.D. 02/13/17 Referrals: NON PHYSICIAN (PCP) Additional Instructions: Followup with your DrLeah in 2-3 days. Return if symptom worsen. MARINA NICHOLAS M.D. Feb 13, 2017 03:22
[2017-02-13 03:27] VITALS: BP 115/69
[2017-02-13] MEDS ORDERED: HYDROmorphone 1mg/ml Carpuject IM ONE (03:30)
== END 2017-02-13 03:30 | disposition home or self-care (01) ==
LOC: EDBD 02:25 → EMR 02:55
DX: D57.00 Hb-SS disease with crisis, unspecified (principal); F11.20 Opioid dependence, uncomplicated; Z88.6 Allergy status to analgesic agent; Z86.73 Personal history of transient ischemic attack (TIA), and cerebral infarction without residual deficits
CPT/HCPCS: 96372; 99283; J1170

== ENCOUNTER 2017-02-17 17:48 | Emergency (ER) | payer MEDICAID ==
[~2017-02-17] VITALS: Ht 154.9 cm; Wt 68.0 kg
[~2017-02-17 17:48] MED LIST changes: +HYDROCODON-ACE1 EA15 ORAL
[2017-02-17] MEDS ORDERED: HYDROmorphone 1mg/ml Carpuject IVP ONE (18:15)
[2017-02-17 18:30] VITALS: BP 103/51
[2017-02-17 18:52] LABS: BASOPHILS % (AUTO) 2.1 % (0.0-2.0); EOSINOPHILS % (AUTO) 0.8 % (0.0-3.0); LYMPHOCYTES % (AUTO) 39.2 % (20.0-45.0); MEAN CORPUSCULAR HEMOGLOBIN 32.9 PG (27.0-31.0); MEAN CORPUSCULAR HGB CONC 35.6 G/DL (32.0-36.0); MEAN CORPUSCULAR VOLUME 92 FL (80-99); MEAN PLATELET VOLUME 6.6 FL (6.5-10.1); MONOCYTES % (AUTO) 7.3 % (1.0-10.0); NEUTROPHILS % (AUTO) 50.6 % (45.0-75.0); PLATELET COUNT 343 K/UL (150-450); RED BLOOD COUNT 2.57 M/UL (4.20-5.40); RED CELL DISTRIBUTION WIDTH 16.2 % (11.6-14.8); WHITE BLOOD COUNT 15.7 K/UL (4.8-10.8)
[2017-02-17] MEDS ORDERED: DiphenhydrAMINE 50mg/ml Inj IVP ONE (19:00)
[2017-02-17 19:02] LABS: APPEARANCE,URINE CLOUDY; KETONES,URINE NEGATIVE (NEGATIVE); LEUKOCYTE ESTERASE ,URINE NEGATIVE (NEGATIVE); NITRITE,URINE NEGATIVE (NEGATIVE); PH,URINE 7 (4.5-8.0); PROTEIN,URINE 2+ (NEGATIVE); UROBILINOGEN,URINE 1 MG/DL (0.0-1.0)
[2017-02-17 19:09] LABS: TROPONIN I < 0.30 ng/mL (<=0.30)
[2017-02-17 19:12] LABS: ALANINE AMINOTRANSFERASE 46 U/L (3-33); ALBUMIN/GLOBULIN RATIO 1.9 (1.0-2.7); ANION GAP 18 (5-15); ASPARTATE AMINO TRANSFERASE 45 U/L (5-40); CARBON DIOXIDE 22 mEQ/L (20-30); CHLORIDE 98 mEQ/L (98-107); CREATININE 0.5 mg/dL (0.5-0.9); GLOMERULAR FILTRATION RATE > 60 mL/min (>60); HEMOLYSIS 10; POTASSIUM 3.9 mEQ/L (3.4-4.9); SODIUM 138 mEQ/L (135-145); TOTAL PROTEIN 6.7 g/dL (6.6-8.7)
[2017-02-17 19:16] LABS: BACTERIA,URINE FEW /HPF; RBC,URINE 0-2 /HPF (0 - 2); SQUAMOUS EPITHELIAL CELL,UR MANY /LPF (NONE/OCC); WBC,URINE 0-2 /HPF (0 - 2)
[2017-02-17 19:22] LABS: CKMB 2.2 ng/mL (< 3.8)
[2017-02-17 19:30] VITALS: BP 108/59
[2017-02-17 19:40] LABS: BILIRUBIN,DIRECT 0.3 mg/dL (0.1-0.3)
[2017-02-17 19:55] LABS: RETICULOCYTE COUNT 4.4 % (0.0-2.0)
[2017-02-17 20:52] VITALS: BP 124/79
--- NOTE | 2017-02-17 22:46 | Emergency Room Report ---
History of Present Illness General Chief Complaint: Pain Source: Patient Present Illness HPI 21-year-old female presents ED for evaluation. Patient states she is having generalized pain in her body x3 days. Patient states she has history of sickle cell disease. Is not sure if she is having a crisis. States her home medications are not working. Pain is a 10 out of 10, sharp, nonradiating. Denies fevers chills. Denies cough. Denies chest pain or shortness of breath. No other aggravating or relieving factors. Denies any other associated symptoms Allergies: Coded Allergies: CODEINE (Verified Allergy, Severe, 07/05/16) Throat closes up and face swells, Spoke with patient has no allery to hydromorphone KETOROLAC (Verified Allergy, Severe, 07/05/16) Throat closes up and face swells Patient History Past Medical History: asthma, CVA/TIA Past Surgical History: none Pertinent Family History: none Social History: Denies: alcohol use, drug use, smoking Last Menstrual Period: 01/22/17 Now: No Immunizations: UTD Reviewed Nursing Documentation: PMH: Agreed, PSxH: Agreed Nursing Documentation-PMH Hx Pacemaker: No Hx Asthma: Yes Hx COPD: No Hx Diabetes: No Hx Cancer: No Hx Gastrointestinal Problems: No Hx Dialysis: No Hx Cerebrovascular Accident: No - TIA Hx Transient Ischemic Attacks: Yes - 05/2016 Hx Dementia: No Hx Alzheimer's Disease: No Hx Parkinson's Disease: No Hx Meningitis: No Hx Encephalitis: No Hx Seizures: No Hx Epilepsy: No Hx Multiple Sclerosis: No Hx Cerebral Palsy: No Hx Amyotrophic Lat Sclerosis: No Hx Guillian-[place] Syndrome: No Hx Paralysis: No Hx Peripheral Neuropathy: No Hx Spinal Cord Injury: No Hx Head Trauma: No Hx Traumatic Brain Injury: No Hx Memory Loss: No Hx Concentration Difficulty: No Hx Tremors: No Hx Vertigo: No Hx Dizziness: No Hx Headaches: Yes Hx Weakness: Yes Review of Systems All Other Systems: negative except mentioned in HPI Physical Exam Vital Signs Date Time Temp Pulse Resp B/P Pulse Ox O2 Delivery O2 Flow Rate FiO2 02/17/17 17:51 99.0 96 18 119/78 98 Room Air Sp02 EP Interpretation: reviewed, normal General Appearance: alert, GCS 15, non-toxic, mild distress Head: normocephalic, atraumatic Eyes: bilateral eye PERRL, bilateral eye normal inspection ENT: hearing grossly normal, normal pharynx, no angioedema, normal voice Neck: full range of motion, supple/symm/no masses Respiratory: chest non-tender, lungs clear, normal breath sounds, speaking full sentences Cardiovascular #1: regular rate, rhythm, no edema Cardiovascular #2: 2+ carotid (R), 2+ carotid (L), 2+ radial (R), 2+ radial (L) , 2+ dorsalis pedis (R), 2+ dorsalis pedis (L) Gastrointestinal: normal bowel sounds, non tender, soft, non-distended, no guarding, no rebound Rectal: deferred Genitourinary: normal inspection, no CVA tenderness Musculoskeletal: back normal, gait/station normal, normal range of motion, non- tender Neurologic: alert, oriented x3, responsive, motor strength/tone normal, sensory intact, speech normal Psychiatric: judgement/insight normal, memory normal, mood/affect normal, no suicidal/homicidal ideation Reflexes: 3+ bicep (R), 3+ bicep (L), 3+ tricep (R), 3+ tricep (L), 3+ knee (R) , 3+ knee (L) Skin: normal color, no rash, warm/dry, well hydrated Lymphatic: no adenopathy Medical Decision Making Diagnostic Impression: Primary Impression: Chronic pain Qualified Codes: G89.29 - Other chronic pain Additional Impression: Sickle cell disease Qualified Codes: D57.1 - Sickle-cell disease without crisis ER Course Hospital Course 21-year-old F presents ED complaining of generalized body pain, h/o sickle cell Differential diagnoses include: CO/unstable angina, sickle cell crisis, sepsis, UTI, pneumonia Clinical course Patient placed on stretcher. on cover remover. After initial history and physical I ordered labs, IV fluids, pain medications Labs-some leukocytosis noted, hemoglobin stable, electrolytes okay, retic count minimally elevated EKG-normal sinus rhythm, no acute ischemic changes interpreted by me Chest x-ray shows Port-A-Cath in place but no signs of infiltrate or other acute process On reassessment pain is improved. I discussed the findings with the patient patient has been here multiple times with markedly higher reticulocyte counts and lower hemoglobin. Patient states she feels better and wishes to be discharged. I do not believe patient requires admission at this time Diagnosis - sickle cell disease chronic pain Stable and discharged to home. Followup with PMD. Return to ED if symptoms recur or worsen Labs Test 02/17/17 18:30 White Blood Count 15.7 K/UL (4.8-10.8) Red Blood Count 2.57 M/UL (4.20-5.40) Hemoglobin 8.4 G/DL (12.0-16.0) Hematocrit 23.7 % (37.0-47.0) Mean Corpuscular Volume 92 FL (80-99) Mean Corpuscular Hemoglobin 32.9 PG (27.0-31.0) Mean Corpuscular Hemoglobin Concent 35.6 G/DL (32.0-36.0) Red Cell Distribution Width 16.2 % (11.6-14.8) Platelet Count 343 K/UL (150-450) Mean Platelet Volume 6.6 FL (6.5-10.1) Neutrophils (%) (Auto) 50.6 % (45.0-75.0) Lymphocytes (%) (Auto) 39.2 % (20.0-45.0) Monocytes (%) (Auto) 7.3 % (1.0-10.0) Eosinophils (%) (Auto) 0.8 % (0.0-3.0) Basophils (%) (Auto) 2.1 % (0.0-2.0) Reticulocyte Count 4.4 % (0.0-2.0) Urine Color Yellow Urine Appearance Cloudy Urine pH 7 (4.5-8.0) Urine Specific [place] 1.005 (1.005-1.035) Urine Protein 2+ (NEGATIVE) Urine Glucose (UA) Negative (NEGATIVE) Urine Ketones Negative (NEGATIVE) Urine Occult Blood Negative (NEGATIVE) Urine Nitrite Negative (NEGATIVE) Urine Bilirubin Negative (NEGATIVE) Urine Urobilinogen 1 MG/DL (0.0-1.0) Urine Leukocyte Esterase Negative (NEGATIVE) Urine RBC 0-2 /HPF (0 - 2) Urine WBC 0-2 /HPF (0 - 2) Urine Squamous Epithelial Cells Many /LPF (NONE/OCC) Urine Bacteria Few /HPF (NONE) Sodium Level 138 mEQ/L (135-145) Potassium Level 3.9 mEQ/L (3.4-4.9) Chloride Level 98 mEQ/L (98-107) Carbon Dioxide Level 22 mEQ/L (20-30) Anion Gap 18 (5-15) Blood Urea Nitrogen 6 mg/dL (7-23) Creatinine 0.5 mg/dL (0.5-0.9) Estimat Glomerular Filtration Rate > 60 mL/min (>60) Glucose Level 88 mg/dL (74-106) Lactic Acid Level 1.00 mmol/L (0.66-2.22) Calcium Level 9.0 mg/dL (8.6-10.2) Total Bilirubin 1.9 mg/dL (0.0-1.2) Direct Bilirubin 0.3 mg/dL (0.1-0.3) Aspartate Amino Transf (AST/SGOT) 45 U/L (5-40) Alanine Aminotransferase (ALT/SGPT) 46 U/L (3-33) Alkaline Phosphatase 60 U/L (35-104) Lactate Dehydrogenase 299 U/L (135-230) Total Creatine Kinase 121 U/L (26-140) Creatine Kinase MB 2.2 ng/mL (< 3.8) Creatine Kinase MB Relative Index 1.8 Troponin I < 0.30 ng/mL (<=0.30) Pro-B-Type Natriuretic Peptide 24 pg/mL (0-125) Total Protein 6.7 g/dL (6.6-8.7) Albumin 4.4 g/dL (3.5-5.2) Globulin 2.3 g/dL Albumin/Globulin Ratio 1.9 (1.0-2.7) EKG Diagnostic Results Rate: normal Rhythm: NSR ST Segments: no acute changes ASA given to the pt in ED: No Rhythm Strip Diag. Results EP Interpretation: yes Rhythm: NSR, no PVC's, no ectopy Chest X-Ray Diagnostic Results Chest X-Ray Ordered: Yes # of Views/Limited/Complete: 1 View Interpretation: no consolidation, no effusion, no pneumothorax, no acute cardiopulmonary disease, other - portacath Indication: Shortness of Breath Impression: No acute disease Date Electronically Signed: Feb 17, 2017 Time Electronically Signed: 18:20 Interpreting ER Physician: Jose Fletcher MD Last Vital Signs Date Time Temp Pulse Resp B/P Pulse Ox O2 Delivery O2 Flow Rate FiO2 02/17/17 20:52 87 18 124/79 99 Room Air 02/17/17 20:51 98.9 Status: improved Disposition: HOME, SELF-CARE Condition: Stable Referrals: MYKE TELLO (PCP) Patient Instructions: Sickle Cell Anemia, Adult JOSE FLETCHER M.D. Feb 17, 2017 22:46
--- NOTE | 2017-02-18 08:30 | Diagnostic Imaging Report ---
Indications: Shortness of breath Technique: Portable AP chest Findings: Comparison: 12/16/2016 Cardiac silhouette remains normal in size. Pulmonary vasculature remains within normal limits. Lungs and pleura remain clear. Left chest wall Port-A-Cath remains in place.. IMPRESSION: No evidence of acute disease, unchanged Stable chronic changes as described
--- NOTE | 2017-02-20 18:36 | Cardiology Report ---
APPROVED REPORT EKG Measurement Heart [id number] Sinus rhythm with 1st degree AV block Possible Left atrial enlargement T wave abnormality, consider inferior ischemia Prolonged QT Abnormal ECG
== END 2017-02-17 20:52 | disposition home or self-care (01) ==
LOC: EMR 18:30
DX: G89.29 Other chronic pain (principal); D57.1 Sickle-cell disease without crisis; J45.909 Unspecified asthma, uncomplicated; Z86.73 Personal history of transient ischemic attack (TIA), and cerebral infarction without residual deficits; Z88.6 Allergy status to analgesic agent
CPT/HCPCS: 36415; 71010; 80053; 81003; 82248; 82550; 82553; 83605; 83615; 83880; 84484; 85025; 85044; 87040; 93005; 96374; 96375; 99284; J1170; J1200

== ENCOUNTER 2017-03-13 03:39 | Emergency (ER) | payer MEDICAID ==
[~2017-03-13] VITALS: Ht 175.3 cm; Wt 67.1 kg
[2017-03-13] MEDS ORDERED: Morphine Sulfate 10mg/ml Inj IVP ONE (04:15)
[2017-03-13] MEDS ORDERED: DiphenhydrAMINE 50mg/ml Inj IVP ONE (04:15)
[2017-03-13 04:28] LABS: BASOPHILS % (AUTO) 0.9 % (0.0-2.0); LYMPHOCYTES % (AUTO) 30.2 % (20.0-45.0); MEAN CORPUSCULAR HEMOGLOBIN 31.4 PG (27.0-31.0); MEAN CORPUSCULAR VOLUME 95 FL (80-99); MEAN PLATELET VOLUME 6.2 FL (6.5-10.1); MONOCYTES % (AUTO) 9.3 % (1.0-10.0); NEUTROPHILS % (AUTO) 58.6 % (45.0-75.0); PLATELET COUNT 579 K/UL (150-450); RED BLOOD COUNT 2.92 M/UL (4.20-5.40); RED CELL DISTRIBUTION WIDTH 15.9 % (11.6-14.8); WHITE BLOOD COUNT 11.8 K/UL (4.8-10.8)
[2017-03-13 04:30] VITALS: BP 114/64
[2017-03-13 04:43] LABS: ALANINE AMINOTRANSFERASE 28 U/L (3-33); ALBUMIN/GLOBULIN RATIO 1.5 (1.0-2.7); ANION GAP 14 (5-15); ASPARTATE AMINO TRANSFERASE 32 U/L (5-40); CALCIUM 9.4 mg/dL (8.6-10.2); CARBON DIOXIDE 24 mEQ/L (20-30); CHLORIDE 104 mEQ/L (98-107); CREATININE 0.3 mg/dL (0.5-0.9); GLOMERULAR FILTRATION RATE > 60 mL/min (>60); HEMOLYSIS 3; POTASSIUM 3.4 mEQ/L (3.4-4.9); SODIUM 142 mEQ/L (135-145); TOTAL PROTEIN 6.6 g/dL (6.6-8.7)
[2017-03-13 05:30] VITALS: BP 110/59
[2017-03-13 05:35] LABS: BILIRUBIN,DIRECT 0.2 mg/dL (0.1-0.3)
[2017-03-13] MEDS ORDERED: ALBUTEROL SULF8.5 GM INH (05:35)
[2017-03-13 06:15] VITALS: BP 107/57
--- NOTE | 2017-03-13 08:15 | Diagnostic Imaging Report ---
Indications: Shortness of breath Technique: Portable AP chest Findings: Comparison: 02/17/17 Cardiac silhouette remains upper limits of normal in size. Pulmonary vasculature remains within normal limits. Inspiratory effort has decreased. Visualized portions of lungs and pleura remain clear. Left chest wall Port-A-Cath remains in place. IMPRESSION: No evidence of acute disease, unchanged Stable chronic changes as described
--- NOTE | 2017-03-16 14:56 | Cardiology Report ---
APPROVED REPORT EKG Measurement Heart [id number] Sinus rhythm with 1st degree AV block Septal infarct, age undetermined T wave abnormality, consider inferior ischemia T wave abnormality, consider anterolateral ischemia Abnormal ECG
--- NOTE | 2017-03-18 06:02 | Emergency Room Report ---
History of Present Illness General Chief Complaint: Pain Source: Patient Present Illness HPI Patient is a 22-year-old female who presented after increased generalized body aches and pain. The patient prior history of sickle cell disease. Patient had multiple episodes of similar type symptoms. Patient stated that she had been having fever. She denied any vomiting or abdominal pain. Patient states she recently had increased nasal congestion and nonproductive cough. Allergies: Coded Allergies: CODEINE (Verified Allergy, Severe, 07/05/16) Throat closes up and face swells, Spoke with patient has no allery to hydromorphone KETOROLAC (Verified Allergy, Severe, 07/05/16) Throat closes up and face swells Patient History Past Medical History: see triage record Last Menstrual Period: Last week Now: No Reviewed Nursing Documentation: PMH: Agreed, PSxH: Agreed Nursing Documentation-PMH Past Medical History: No History, Except For Hx Pacemaker: No Hx Asthma: Yes Hx COPD: No Hx Diabetes: No Hx Cancer: No Hx Gastrointestinal Problems: No Hx Dialysis: No Hx Cerebrovascular Accident: Yes - TIA Hx Transient Ischemic Attacks: Yes - 05/2016 Hx Dementia: No Hx Alzheimer's Disease: No Hx Parkinson's Disease: No Hx Meningitis: No Hx Encephalitis: No Hx Seizures: No Hx Epilepsy: No Hx Multiple Sclerosis: No Hx Cerebral Palsy: No Hx Amyotrophic Lat Sclerosis: No Hx Guillian-[place] Syndrome: No Hx Paralysis: No Hx Peripheral Neuropathy: No Hx Spinal Cord Injury: No Hx Head Trauma: No Hx Traumatic Brain Injury: No Hx Memory Loss: No Hx Concentration Difficulty: No Hx Tremors: No Hx Vertigo: No Hx Dizziness: No Hx Headaches: Yes Hx Weakness: Yes Review of Systems All Other Systems: negative except mentioned in HPI Physical Exam Vital Signs Date Time Temp Pulse Resp B/P Pulse Ox O2 Delivery O2 Flow Rate FiO2 03/13/17 03:45 98.2 87 16 113/71 100 Room Air General Appearance: well appearing, no apparent distress, alert, GCS 15 Head: normocephalic, atraumatic ENT: hearing grossly normal, normal voice Neck: full range of motion, supple Respiratory: normal inspection, lungs clear, no respiratory distress, speaking full sentences Cardiovascular #1: normal inspection, no edema Musculoskeletal: no calf tenderness Neurologic: normal gait Psychiatric: mood/affect normal Skin: no rash Medical Decision Making Diagnostic Impression: Primary Impression: Sickle cell crisis ER Course Patient presented for back pain. Differential diagnoses include was noted to sickle cell pain crisis, acute chest syndrome, aplastic crisis,Because of complexity of patient's case laboratory testing and imaging studies were ordered. EKG interpreted by me showed normal sinus rhythm with nonspecific T wave changes. Laboratory testing showed adequate hemoglobin as well as adequate reticulocyte count. The patient was given IV fluids as well as IV pain medications. Patient stated she felt better want to go home.The patient is advised to follow up with primary care doctor in 1-2 days. Patient is advised to return if any worsening condition or if any changes in status that are concerning. Labs Test 03/13/17 04:20 White Blood Count 11.8 K/UL (4.8-10.8) Red Blood Count 2.92 M/UL (4.20-5.40) Hemoglobin 9.2 G/DL (12.0-16.0) Hematocrit 27.8 % (37.0-47.0) Mean Corpuscular Volume 95 FL (80-99) Mean Corpuscular Hemoglobin 31.4 PG (27.0-31.0) Mean Corpuscular Hemoglobin Concent 33.0 G/DL (32.0-36.0) Red Cell Distribution Width 15.9 % (11.6-14.8) Platelet Count 579 K/UL (150-450) Mean Platelet Volume 6.2 FL (6.5-10.1) Neutrophils (%) (Auto) 58.6 % (45.0-75.0) Lymphocytes (%) (Auto) 30.2 % (20.0-45.0) Monocytes (%) (Auto) 9.3 % (1.0-10.0) Eosinophils (%) (Auto) 1.0 % (0.0-3.0) Basophils (%) (Auto) 0.9 % (0.0-2.0) Reticulocyte Count 5.0 % (0.0-2.0) Sodium Level 142 mEQ/L (135-145) Potassium Level 3.4 mEQ/L (3.4-4.9) Chloride Level 104 mEQ/L (98-107) Carbon Dioxide Level 24 mEQ/L (20-30) Anion Gap 14 (5-15) Blood Urea Nitrogen 4 mg/dL (7-23) Creatinine 0.3 mg/dL (0.5-0.9) Estimat Glomerular Filtration Rate > 60 mL/min (>60) Glucose Level 108 mg/dL (74-106) Calcium Level 9.4 mg/dL (8.6-10.2) Total Bilirubin 1.3 mg/dL (0.0-1.2) Direct Bilirubin 0.2 mg/dL (0.1-0.3) Aspartate Amino Transf (AST/SGOT) 32 U/L (5-40) Alanine Aminotransferase (ALT/SGPT) 28 U/L (3-33) Alkaline Phosphatase 66 U/L (35-104) Total Protein 6.6 g/dL (6.6-8.7) Albumin 4.0 g/dL (3.5-5.2) Globulin 2.6 g/dL Albumin/Globulin Ratio 1.5 (1.0-2.7) EKG Diagnostic Results Rate: normal Rhythm: NSR ST Segments: no acute changes Last Vital Signs Date Time Temp Pulse Resp B/P Pulse Ox O2 Delivery O2 Flow Rate FiO2 03/13/17 06:15 98.9 61 18 107/57 95 Room Air Status: improved Disposition: HOME, SELF-CARE Condition: Stable Scripts Albuterol Sulfate* (ALBUTEROL SULFATE MDI*) 8.5 Gm Hfa.aer.ad 2 PUFF INH Q6H, #1 INH 0 Refills Prov: Jose Antonio Dobbs 03/13/17 Referrals: NON PHYSICIAN (PCP) Patient Instructions: Sickle Cell Anemia, Adult Jose Antonio Dobbs Mar 18, 2017 06:02
== END 2017-03-13 06:15 | disposition home or self-care (01) ==
LOC: EMR 04:40
DX: D57.00 Hb-SS disease with crisis, unspecified (principal); Z88.6 Allergy status to analgesic agent; Z88.8 Allergy status to other drugs, medicaments and biological substances; Z86.73 Personal history of transient ischemic attack (TIA), and cerebral infarction without residual deficits
CPT/HCPCS: 36415; 71010; 80053; 82248; 85025; 85044; 86850; 86900; 86901; 93005; 96374; 96375; 99284; J1200; J2270

== ENCOUNTER 2017-05-08 06:44 | Emergency (ER) | payer MEDICAID ==
[~2017-05-08] VITALS: Ht 175.3 cm; Wt 73.5 kg
[~2017-05-08 06:44] MED LIST changes: +ALBUTEROL SULF8.5 GM INH
[2017-05-08] MEDS ORDERED: Morphine Sulfate 4mg/ml Inj IVP ONE (07:00)
[2017-05-08] MEDS ORDERED: DiphenhydrAMINE 50mg/ml Inj IVP ONE (07:00)
[2017-05-08 07:35] LABS: APPEARANCE,URINE CLEAR; KETONES,URINE NEGATIVE (NEGATIVE); LEUKOCYTE ESTERASE ,URINE 1+ (NEGATIVE); NITRITE,URINE NEGATIVE (NEGATIVE); PH,URINE 7 (4.5-8.0); PROTEIN,URINE NEGATIVE (NEGATIVE); UROBILINOGEN,URINE NORMAL MG/DL (0.0-1.0)
[2017-05-08 07:39] LABS: BASOPHILS % (AUTO) 0.9 % (0.0-2.0); EOSINOPHILS % (AUTO) 0.4 % (0.0-3.0); LYMPHOCYTES % (AUTO) 30.3 % (20.0-45.0); MEAN CORPUSCULAR HEMOGLOBIN 34.2 PG (27.0-31.0); MEAN CORPUSCULAR VOLUME 98 FL (80-99); MEAN PLATELET VOLUME 5.9 FL (6.5-10.1); MONOCYTES % (AUTO) 7.9 % (1.0-10.0); NEUTROPHILS % (AUTO) 60.5 % (45.0-75.0); PLATELET COUNT 421 K/UL (150-450); RED CELL DISTRIBUTION WIDTH 19.7 % (11.6-14.8); WHITE BLOOD COUNT 11.4 K/UL (4.8-10.8)
[2017-05-08 07:40] VITALS: BP 102/51
[2017-05-08 07:47] LABS: BACTERIA,URINE FEW /HPF; RBC,URINE 0-2 /HPF (0 - 2); SQUAMOUS EPITHELIAL CELL,UR FEW /LPF (NONE/OCC)
[2017-05-08 07:49] LABS: ALANINE AMINOTRANSFERASE 36 U/L (3-33); ALBUMIN/GLOBULIN RATIO 1.7 (1.0-2.7); ANION GAP 13 (5-15); ASPARTATE AMINO TRANSFERASE 36 U/L (5-40); CALCIUM 9.2 mg/dL (8.6-10.2); CARBON DIOXIDE 24 mEQ/L (20-30); CHLORIDE 106 mEQ/L (98-107); CREATININE 0.5 mg/dL (0.5-0.9); GLOMERULAR FILTRATION RATE > 60 mL/min (>60); HEMOLYSIS 7; POTASSIUM 3.9 mEQ/L (3.4-4.9); SODIUM 143 mEQ/L (135-145); TOTAL PROTEIN 6.8 g/dL (6.6-8.7)
[2017-05-08 07:54] LABS: TROPONIN I < 0.30 ng/mL (<=0.30)
[2017-05-08 08:01] LABS: CKMB 1.7 ng/mL (< 3.8)
[2017-05-08 08:12] LABS: BILIRUBIN,DIRECT 0.3 mg/dL (0.1-0.3)
[2017-05-08 08:16] LABS: RETICULOCYTE COUNT 9.9 % (0.0-2.0)
[2017-05-08 09:35] VITALS: BP 98/56
[2017-05-08 09:36] VITALS: BP 98/56
--- NOTE | 2017-05-08 09:53 | Emergency Room Report ---
History of Present Illness General Chief Complaint: General Complaint Source: Patient Present Illness HPI 22-year-old female presents ED for evaluation. Patient notes history of sickle cell disease states that she has generalized body pain for last 2 days. Notes cough dry. States she has a fever but is afebrile at triage. Pain is a 9/10, throbbing, nonradiating. No other aggravating relieving factors. Denies any other associated symptoms Allergies: Coded Allergies: CODEINE (Verified Allergy, Severe, 07/05/16) Throat closes up and face swells, Spoke with patient has no allery to hydromorphone KETOROLAC (Verified Allergy, Severe, 07/05/16) Throat closes up and face swells Patient History Past Medical History: HTN, asthma, CVA/TIA, other - sickle cell Past Surgical History: none Pertinent Family History: none Social History: Denies: smoking, alcohol use, drug use Last Menstrual Period: APR 22 Now: No Immunizations: UTD Reviewed Nursing Documentation: PMH: Agreed, PSxH: Agreed Nursing Documentation-PMH Hx Hypertension: Yes Hx Pacemaker: No Hx Asthma: Yes Hx COPD: No Hx Diabetes: No Hx Cancer: No Hx Transient Ischemic Attacks: Yes - 05/2016 Hx Dementia: No Hx Alzheimer's Disease: No Hx Parkinson's Disease: No Hx Meningitis: No Hx Encephalitis: No Hx Seizures: No Hx Epilepsy: No Hx Multiple Sclerosis: No Hx Cerebral Palsy: No Hx Amyotrophic Lat Sclerosis: No Hx Guillian-[place] Syndrome: No Hx Paralysis: No Hx Peripheral Neuropathy: No Hx Spinal Cord Injury: No Hx Head Trauma: No Hx Traumatic Brain Injury: No Hx Memory Loss: No Hx Concentration Difficulty: No Hx Tremors: No Hx Vertigo: No Hx Dizziness: No Hx Headaches: Yes Hx Weakness: Yes Review of Systems All Other Systems: negative except mentioned in HPI Physical Exam Vital Signs Date Time Temp Pulse Resp B/P (MAP) Pulse Ox O2 Delivery O2 Flow Rate FiO2 05/08/17 06:48 98.4 75 18 107/66 98 Room Air Sp02 EP Interpretation: reviewed, normal General Appearance: no apparent distress, alert, GCS 15, non-toxic Head: normocephalic, atraumatic Eyes: bilateral eye normal inspection, bilateral eye PERRL ENT: hearing grossly normal, normal pharynx, no angioedema, normal voice Neck: full range of motion, supple/symm/no masses Respiratory: chest non-tender, lungs clear, normal breath sounds, speaking full sentences Cardiovascular #1: regular rate, rhythm, no edema Cardiovascular #2: 2+ carotid (R), 2+ carotid (L), 2+ radial (R), 2+ radial (L) , 2+ dorsalis pedis (R), 2+ dorsalis pedis (L) Gastrointestinal: normal bowel sounds, non tender, soft, non-distended, no guarding, no rebound Rectal: deferred Genitourinary: normal inspection, no CVA tenderness Musculoskeletal: back normal, gait/station normal, normal range of motion, non- tender Neurologic: alert, oriented x3, responsive, motor strength/tone normal, sensory intact, speech normal Psychiatric: judgement/insight normal, memory normal, mood/affect normal, no suicidal/homicidal ideation Reflexes: 3+ bicep (R), 3+ bicep (L), 3+ tricep (R), 3+ tricep (L), 3+ knee (R) , 3+ knee (L) Skin: normal color, no rash, warm/dry, well hydrated Lymphatic: no adenopathy Medical Decision Making Diagnostic Impression: Primary Impression: Sickle cell disease Qualified Codes: D57.1 - Sickle-cell disease without crisis Additional Impression: Chronic pain Qualified Codes: G89.29 - Other chronic pain ER Course Hospital Course 22-year-old F presents ED complaining of generalized body pain, h/o sickle cell Differential diagnoses include: GA/unstable angina, sickle cell crisis, sepsis, UTI, pneumonia Clinical course Patient placed on stretcher. on radiation monitor. [place] [facility] [facility] [place] After initial history and physical I ordered labs, EKG, chest x-ray, IV fluids and pain meds Labs-minimal leukocytosis, hemoglobin/hematocrit stable, no excellent okay, troponins negative, UA negative Chest x-ray unremarkable EKG-normal sinus rhythm no acute ischemic changes interpreted by me Reassessment pain is improved. However patient option for admission. Patient states she feels better wishes to be discharged. Has PMD appointment tomorrow Diagnosis - sickle cell crisis, chronic pain Stable and discharged to home. Followup with PMD. Return to ED if symptoms recur or worsen Labs Test 05/08/17 07:15 White Blood Count 11.4 K/UL (4.8-10.8) Red Blood Count 2.60 M/UL (4.20-5.40) Hemoglobin 8.9 G/DL (12.0-16.0) Hematocrit 25.5 % (37.0-47.0) Mean Corpuscular Volume 98 FL (80-99) Mean Corpuscular Hemoglobin 34.2 PG (27.0-31.0) Mean Corpuscular Hemoglobin Concent 35.0 G/DL (32.0-36.0) Red Cell Distribution Width 19.7 % (11.6-14.8) Platelet Count 421 K/UL (150-450) Mean Platelet Volume 5.9 FL (6.5-10.1) Neutrophils (%) (Auto) 60.5 % (45.0-75.0) Lymphocytes (%) (Auto) 30.3 % (20.0-45.0) Monocytes (%) (Auto) 7.9 % (1.0-10.0) Eosinophils (%) (Auto) 0.4 % (0.0-3.0) Basophils (%) (Auto) 0.9 % (0.0-2.0) Reticulocyte Count 9.9 % (0.0-2.0) Urine Color Yellow Urine Appearance Clear Urine pH 7 (4.5-8.0) Urine Specific Julian 1.010 (1.005-1.035) Urine Protein Negative (NEGATIVE) Urine Glucose (UA) Negative (NEGATIVE) Urine Ketones Negative (NEGATIVE) Urine Occult Blood Negative (NEGATIVE) Urine Nitrite Negative (NEGATIVE) Urine Bilirubin Negative (NEGATIVE) Urine Urobilinogen Normal MG/DL (0.0-1.0) Urine Leukocyte Esterase 1+ (NEGATIVE) Urine RBC 0-2 /HPF (0 - 2) Urine WBC 2-4 /HPF (0 - 2) Urine Squamous Epithelial Cells Few /LPF (NONE/OCC) Urine Bacteria Few /HPF (NONE) Urine HCG, Qualitative Negative Sodium Level 143 mEQ/L (135-145) Potassium Level 3.9 mEQ/L (3.4-4.9) Chloride Level 106 mEQ/L (98-107) Carbon Dioxide Level 24 mEQ/L (20-30) Anion Gap 13 (5-15) Blood Urea Nitrogen 6 mg/dL (7-23) Creatinine 0.5 mg/dL (0.5-0.9) Estimat Glomerular Filtration Rate > 60 mL/min (>60) Glucose Level 112 mg/dL (74-106) Calcium Level 9.2 mg/dL (8.6-10.2) Total Bilirubin 1.8 mg/dL (0.0-1.2) Direct Bilirubin 0.3 mg/dL (0.1-0.3) Aspartate Amino Transf (AST/SGOT) 36 U/L (5-40) Alanine Aminotransferase (ALT/SGPT) 36 U/L (3-33) Alkaline Phosphatase 57 U/L (35-104) Lactate Dehydrogenase 255 U/L (135-230) Total Creatine Kinase 80 U/L (26-140) Creatine Kinase MB 1.7 ng/mL (< 3.8) Creatine Kinase MB Relative Index 2.1 Troponin I < 0.30 ng/mL (<=0.30) Total Protein 6.8 g/dL (6.6-8.7) Albumin 4.3 g/dL (3.5-5.2) Globulin 2.5 g/dL Albumin/Globulin Ratio 1.7 (1.0-2.7) EKG Diagnostic Results Rate: normal Rhythm: NSR ST Segments: no acute changes ASA given to the pt in ED: No Rhythm Strip Diag. Results EP Interpretation: yes Rhythm: NSR, no PVC's Chest X-Ray Diagnostic Results Chest X-Ray Diagnostic Results : Chest X-Ray Ordered: Yes # of Views/Limited/Complete: 1 View Indication: Chest Pain EP Interpretation: Yes Interpretation: no consolidation, no effusion, no pneumothorax, no acute cardiopulmonary disease Impression: No acute disease Last Vital Signs Date Time Temp Pulse Resp B/P (MAP) Pulse Ox O2 Delivery O2 Flow Rate FiO2 05/08/17 09:36 98.4 70 18 98/56 98 Room Air Status: improved Disposition: HOME, SELF-CARE Condition: Stable Referrals: NOT CHOSEN IPA/,REFERRING (PCP) Patient Instructions: Sickle Cell Anemia, Adult, [id number] REJI PARISI M.D. May 08, 2017 09:53
--- NOTE | 2017-05-08 12:41 | Diagnostic Imaging Report ---
Indication: COUGH Technique: One view of the chest Comparison: 03/13/2017 Findings: Left chest port catheter again demonstrated, tip projecting at level of the innominate venous confluence. Lungs and pleural spaces are clear. Heart size is normal. No significant change Impression: No acute process
== END 2017-05-08 09:38 | disposition home or self-care (01) ==
LOC: EMR 07:00
DX: D57.1 Sickle-cell disease without crisis (principal); G89.29 Other chronic pain; I10 Essential (primary) hypertension; J45.909 Unspecified asthma, uncomplicated; Z86.73 Personal history of transient ischemic attack (TIA), and cerebral infarction without residual deficits; Z88.6 Allergy status to analgesic agent
CPT/HCPCS: 36415; 71010; 80053; 81003; 81025; 82248; 82550; 82553; 83615; 84484; 85025; 85044; 93005; 96374; 96375; 99284; J1200; J2270; J2405

== ENCOUNTER 2017-06-05 05:32 | Emergency (ER) | payer MEDICAID ==
[~2017-06-05] VITALS: Ht 175.3 cm; Wt 74.4 kg
[2017-06-05] MEDS ORDERED: HYDROmorphone 1mg/ml Carpuject IVP ONE ×2 (06:00→08:30)
[2017-06-05] MEDS ORDERED: DiphenhydrAMINE 50mg/ml Inj IVP ONE ×2 (06:00→08:30)
[2017-06-05] MEDS ORDERED: Tubing IV Cassette IV ONE (06:15)
[2017-06-05 07:01] LABS: ALANINE AMINOTRANSFERASE 47 U/L (3-33); ALBUMIN/GLOBULIN RATIO 1.8 (1.0-2.7); ANION GAP 12 (5-15); ASPARTATE AMINO TRANSFERASE 40 U/L (5-40); CALCIUM 8.9 mg/dL (8.6-10.2); CARBON DIOXIDE 21 mEQ/L (20-30); CHLORIDE 109 mEQ/L (98-107); CREATININE 0.4 mg/dL (0.5-0.9); GLOMERULAR FILTRATION RATE > 60 mL/min (>60); HEMOLYSIS 7; POTASSIUM 3.6 mEQ/L (3.4-4.9); SODIUM 142 mEQ/L (135-145); TOTAL PROTEIN 6.2 g/dL (6.6-8.7)
[2017-06-05 07:21] VITALS: BP 92/46
[2017-06-05 08:06] LABS: BASOPHILS % (AUTO) 1.1 % (0.0-2.0); EOSINOPHILS % (AUTO) 1.1 % (0.0-3.0); LYMPHOCYTES % (AUTO) 26.8 % (20.0-45.0); MEAN CORPUSCULAR HEMOGLOBIN 30.1 PG (27.0-31.0); MEAN CORPUSCULAR HGB CONC 32.6 G/DL (32.0-36.0); MEAN CORPUSCULAR VOLUME 92 FL (80-99); MEAN PLATELET VOLUME 6.6 FL (6.5-10.1); MONOCYTES % (AUTO) 5.2 % (1.0-10.0); NEUTROPHILS % (AUTO) 65.8 % (45.0-75.0); PLATELET COUNT 468 K/UL (150-450); RED CELL DISTRIBUTION WIDTH 14.5 % (11.6-14.8); WHITE BLOOD COUNT 11.5 K/UL (4.8-10.8)
--- NOTE | 2017-06-05 08:22 | Emergency Room Report ---
Physical Exam Patient was initially evaluated by Dr. Martinez. Please refer to his full note. The patient is still complaining about pain. She denies any fevers. She has a history of sickle cell Vital Signs Date Time Temp Pulse Resp B/P (MAP) Pulse Ox O2 Delivery O2 Flow Rate FiO2 06/05/17 05:39 98.1 82 16 119/77 98 Sp02 EP Interpretation: reviewed, normal General Appearance: well appearing, no apparent distress, GCS 15 Head: normocephalic, atraumatic Eyes: bilateral eye conjunctivae pale ENT: moist mucus membranes Neck: supple Respiratory: lungs clear, normal breath sounds Cardiovascular #1: regular rate, rhythm Cardiovascular #2: 2+ radial (R) Gastrointestinal: normal inspection, normal bowel sounds, non tender, no mass, non-distended Musculoskeletal: back normal, gait/station normal, normal range of motion Neurologic: alert, oriented x3, grossly normal Psychiatric: mood/affect normal Skin: normal inspection, warm/dry, pallor Medical Decision Making Diagnostic Impression: Primary Impression: Sickle cell anemia with pain ER Course Patient presents with sickle cell crisis. We need to exclude bone marrow failure or, increase in anemia, occult infection. Please see the full note from Dr. Juan Chase. The patient is requesting more pain medication at this time. Review labs is unremarkable. Her anemia is stable at this time and has been this amount for a long period of time. The patient has analgesia repeated at this time. Improved with treatment. Scheduled follow up with PMD. Patient stable for outpatient observation and treatment. Laboratory Tests Test 06/05/17 06:15 06/05/17 06:30 White Blood Count 11.5 K/UL (4.8-10.8) H Red Blood Count 2.90 M/UL (4.20-5.40) L Hemoglobin 8.7 G/DL (12.0-16.0) L Hematocrit 26.8 % (37.0-47.0) L Mean Corpuscular Volume 92 FL (80-99) Mean Corpuscular Hemoglobin 30.1 PG (27.0-31.0) Mean Corpuscular Hemoglobin Concent 32.6 G/DL (32.0-36.0) Red Cell Distribution Width 14.5 % (11.6-14.8) Platelet Count 468 K/UL (150-450) H Mean Platelet Volume 6.6 FL (6.5-10.1) Neutrophils (%) (Auto) 65.8 % (45.0-75.0) Lymphocytes (%) (Auto) 26.8 % (20.0-45.0) Monocytes (%) (Auto) 5.2 % (1.0-10.0) Eosinophils (%) (Auto) 1.1 % (0.0-3.0) Basophils (%) (Auto) 1.1 % (0.0-2.0) Sodium Level 142 mEQ/L (135-145) Potassium Level 3.6 mEQ/L (3.4-4.9) Chloride Level 109 mEQ/L (98-107) H Carbon Dioxide Level 21 mEQ/L (20-30) Anion Gap 12 (5-15) Blood Urea Nitrogen 8 mg/dL (7-23) Creatinine 0.4 mg/dL (0.5-0.9) L Estimate Glomerular Filtration Rate > 60 mL/min (>60) Glucose Level 95 mg/dL (74-106) Calcium Level 8.9 mg/dL (8.6-10.2) Total Bilirubin 0.6 mg/dL (0.0-1.2) Aspartate Amino Transferase (AST) 40 U/L (5-40) Alanine Aminotransferase (ALT) 47 U/L (3-33) H Alkaline Phosphatase 61 U/L (35-104) Total Protein 6.2 g/dL (6.6-8.7) L Albumin 4.0 g/dL (3.5-5.2) Globulin 2.2 g/dL Albumin/Globulin Ratio 1.8 (1.0-2.7) Last Vital Signs Date Time Temp Pulse Resp B/P (MAP) Pulse Ox O2 Delivery O2 Flow Rate FiO2 06/05/17 09:20 98.3 59 17 90/58 100 Room Air Status: improved Disposition: HOME, SELF-CARE Condition: Improved Referrals: NOT CHOSEN [facility]/,REFERRING (PCP) Steve Alejandre M.D. Jun 05, 2017 08:22
[2017-06-05 08:44] VITALS: BP 88/54
[2017-06-05 09:20] VITALS: BP 90/58
[2017-06-05 10:12] LABS: RETICULOCYTE COUNT 0.4 % (0.0-2.0)
--- NOTE | 2017-06-05 21:41 | Emergency Room Report ---
History of Present Illness General Chief Complaint: Pain Source: Patient Present Illness HPI 22-year-old female presents ED evaluation. Patient has history of sickle cell disease and states that she has generalized body pain for the last 2 days. Has tried her pain medications but states did not help. Patient say she may be having a sickle cell crisis. Pain is a 10 out of 10, and fell, nonradiating. No fevers or chills, denies chest pain shortness of breath. No aggravating relieving factors. Denies any other systems Allergies: Coded Allergies: CODEINE (Verified Allergy, Severe, 07/05/16) Throat closes up and face swells, Spoke with patient has no allery to hydromorphone KETOROLAC (Verified Allergy, Severe, 07/05/16) Throat closes up and face swells Patient History Past Medical History: HTN, asthma, CVA/TIA, other - sickle cell Past Surgical History: none Pertinent Family History: none Social History: Denies: smoking, alcohol use, drug use Last Menstrual Period: 04/24/17 Now: No Immunizations: UTD Reviewed Nursing Documentation: PMH: Agreed, PSxH: Agreed Nursing Documentation-PMH Hx Cardiac Problems: Yes - heart murmur Hx Hypertension: Yes Hx Pacemaker: No Hx Asthma: Yes Hx COPD: No Hx Diabetes: No Hx Cancer: No Hx Transient Ischemic Attacks: Yes - 05/2016 Hx Dementia: No Hx Alzheimer's Disease: No Hx Parkinson's Disease: No Hx Meningitis: No Hx Encephalitis: No Hx Seizures: No Hx Epilepsy: No Hx Multiple Sclerosis: No Hx Cerebral Palsy: No Hx Amyotrophic Lat Sclerosis: No Hx Guillian-[place] Syndrome: No Hx Paralysis: No Hx Peripheral Neuropathy: No Hx Spinal Cord Injury: No Hx Head Trauma: No Hx Traumatic Brain Injury: No Hx Memory Loss: No Hx Concentration Difficulty: No Hx Tremors: No Hx Vertigo: No Hx Dizziness: No Hx Headaches: Yes Hx Weakness: Yes Review of Systems All Other Systems: negative except mentioned in HPI Physical Exam Vital Signs Date Time Temp Pulse Resp B/P (MAP) Pulse Ox O2 Delivery O2 Flow Rate FiO2 06/05/17 05:39 98.1 82 16 119/77 98 06/05/17 08:44 Room Air Sp02 EP Interpretation: reviewed, normal General Appearance: no apparent distress, alert, GCS 15, non-toxic Head: normocephalic, atraumatic Eyes: bilateral eye normal inspection, bilateral eye PERRL ENT: hearing grossly normal, normal pharynx, no angioedema, normal voice Neck: full range of motion, supple/symm/no masses Respiratory: chest non-tender, lungs clear, normal breath sounds, speaking full sentences Cardiovascular #1: regular rate, rhythm, no edema Cardiovascular #2: 2+ carotid (R), 2+ carotid (L), 2+ radial (R), 2+ radial (L) , 2+ dorsalis pedis (R), 2+ dorsalis pedis (L) Gastrointestinal: normal bowel sounds, non tender, soft, non-distended, no guarding, no rebound Rectal: deferred Genitourinary: normal inspection, no CVA tenderness Musculoskeletal: back normal, gait/station normal, normal range of motion, non- tender Neurologic: alert, oriented x3, responsive, motor strength/tone normal, sensory intact, speech normal Psychiatric: judgement/insight normal, memory normal, mood/affect normal, no suicidal/homicidal ideation Reflexes: 3+ bicep (R), 3+ bicep (L), 3+ tricep (R), 3+ tricep (L), 3+ knee (R) , 3+ knee (L) Skin: normal color, no rash, warm/dry, well hydrated Lymphatic: no adenopathy Medical Decision Making Diagnostic Impression: Primary Impression: Sickle cell anemia with pain ER Course Hospital Course 22-year-old F presents ED complaining of generalized body pain, h/o sickle cell Differential diagnoses include: AL/unstable angina, sickle cell crisis, sepsis, UTI, pneumonia Clinical course Patient placed on stretcher. on manager cardiac cath. After initial history and physical I ordered labs, IV fluids, pain medications Labs pending. Patient will be signed out to Dr. Alejandre pending labs and reevaluation Last Vital Signs Date Time Temp Pulse Resp B/P (MAP) Pulse Ox O2 Delivery O2 Flow Rate FiO2 06/05/17 09:20 98.3 59 17 90/58 100 Room Air Disposition: HOME, SELF-CARE Condition: Improved Signed Out To: Dr alejandre Referrals: NOT CHOSEN [facility]/,REFERRING (PCP) Patient Instructions: Sickle Cell Anemia, Adult Additional Instructions: Follow up with your doctor. Call your doctor today. REJI PARISI M.D. Jun 05, 2017 21:41
== END 2017-06-05 09:41 | disposition home or self-care (01) ==
LOC: EMR 06:33
DX: D57.1 Sickle-cell disease without crisis (principal); I10 Essential (primary) hypertension; J45.909 Unspecified asthma, uncomplicated; Z86.73 Personal history of transient ischemic attack (TIA), and cerebral infarction without residual deficits; Z88.6 Allergy status to analgesic agent
CPT/HCPCS: 36415; 80053; 85025; 85044; 96361; 96374; 96375; 99284; J1170; J1200

== ENCOUNTER 2017-06-20 11:12 | Emergency (ER) | payer MEDICAID ==
[~2017-06-20] VITALS: Ht 175.3 cm; Wt 73.5 kg
[2017-06-20 11:30] VITALS: BP 115/69
[2017-06-20] MEDS ORDERED: HYDROmorphone 1 MG, DiphenhydrAMINE 25 MG in NS 55 ML IVPB ONE (12:30)
[2017-06-20] MEDS ORDERED: DiphenhydrAMINE 50mg/ml Inj IVP ONE (13:30)
[2017-06-20] MEDS ORDERED: Hydromorphone 0.5mg/0.5ml inj IVP ONE (13:30)
[2017-06-20 13:36] LABS: BASOPHILS % (AUTO) 0.9 % (0.0-2.0); LYMPHOCYTES % (AUTO) 24.3 % (20.0-45.0); MEAN CORPUSCULAR HEMOGLOBIN 31.5 PG (27.0-31.0); MEAN CORPUSCULAR HGB CONC 33.4 G/DL (32.0-36.0); MEAN CORPUSCULAR VOLUME 95 FL (80-99); MONOCYTES % (AUTO) 6.9 % (1.0-10.0); NEUTROPHILS % (AUTO) 66.9 % (45.0-75.0); PLATELET COUNT 336 K/UL (150-450); RED BLOOD COUNT 2.96 M/UL (4.20-5.40); RED CELL DISTRIBUTION WIDTH 18.9 % (11.6-14.8); WHITE BLOOD COUNT 17.6 K/UL (4.8-10.8)
[2017-06-20 13:46] LABS: ANION GAP 8 mmol/L (5-15); CARBON DIOXIDE 25 MMOL/L (21-32); CHLORIDE 107 MMOL/L (98-107); CREATININE 0.5 MG/DL (0.55-1.30); GLOMERULAR FILTRATION RATE > 60 mL/min (>60); POTASSIUM 3.7 MMOL/L (3.5-5.1); SODIUM 140 MMOL/L (136-145)
--- NOTE | 2017-06-20 17:09 | Emergency Room Report ---
History of Present Illness General Chief Complaint: Pain Source: Patient Present Illness HPI The patient is a 22-year-old female with a history of sickle cell disease presenting for possible sickle cell crisis. She has been seen in this emergency department many times for the same complaint. Pain began today described as a 9/10 sharp total body pain. She states that this feels typical for her sickle cell pain. She states she has an appointment to see her primary doctor tomorrow. She usually takes Dilaudid at home with Benadryl and states that she ran out yesterday. She denies any other symptoms Allergies: Coded Allergies: CODEINE (Verified Allergy, Severe, 07/05/16) Throat closes up and face swells, Spoke with patient has no allery to hydromorphone KETOROLAC (Verified Allergy, Severe, 07/05/16) Throat closes up and face swells Patient History Past Medical History: see triage record, other - Sickle cell Pertinent Family History: none Last Menstrual Period: Two weeks ago Now: No Reviewed Nursing Documentation: PMH: Agreed, PSxH: Agreed Nursing Documentation-PMH Hx Cardiac Problems: Yes - heart murmur Hx Hypertension: Yes Hx Pacemaker: No Hx Asthma: Yes Hx COPD: No Hx Diabetes: No Hx Cancer: No Hx Transient Ischemic Attacks: Yes - 05/2016 Hx Dementia: No Hx Alzheimer's Disease: No Hx Parkinson's Disease: No Hx Meningitis: No Hx Encephalitis: No Hx Seizures: No Hx Epilepsy: No Hx Multiple Sclerosis: No Hx Cerebral Palsy: No Hx Amyotrophic Lat Sclerosis: No Hx Guillian-[place] Syndrome: No Hx Paralysis: No Hx Peripheral Neuropathy: No Hx Spinal Cord Injury: No Hx Head Trauma: No Hx Traumatic Brain Injury: No Hx Memory Loss: No Hx Concentration Difficulty: No Hx Tremors: No Hx Vertigo: No Hx Dizziness: No Hx Headaches: Yes Hx Weakness: Yes Review of Systems All Other Systems: negative except mentioned in HPI Physical Exam Vital Signs Date Time Temp Pulse Resp B/P (MAP) Pulse Ox O2 Delivery O2 Flow Rate FiO2 06/20/17 11:21 97.9 83 16 115/69 98 Room Air Sp02 EP Interpretation: reviewed, normal General Appearance: alert, GCS 15, non-toxic, mild distress Head: normocephalic, atraumatic Eyes: bilateral eye normal inspection, bilateral eye PERRL ENT: hearing grossly normal, normal pharynx, no angioedema, normal voice Respiratory: chest non-tender, lungs clear, normal breath sounds, speaking full sentences Gastrointestinal: normal bowel sounds, soft, non-distended, no guarding, no rebound Genitourinary: normal inspection, no CVA tenderness Musculoskeletal: back normal, gait/station normal, normal range of motion, non- tender Neurologic: alert, oriented x3, responsive, motor strength/tone normal, sensory intact, speech normal Psychiatric: judgement/insight normal, memory normal, mood/affect normal, no suicidal/homicidal ideation Skin: normal color, no rash, warm/dry, well hydrated Medical Decision Making PA Attestation Dr. Dent is my supervising physician. Patient management was discussed with my supervising physician Diagnostic Impression: Primary Impression: Sickle cell disease Qualified Codes: D57.00 - Hb-SS disease with crisis, unspecified ER Course The patient is a 22-year-old female with a history of sickle cell disease presenting for possible sickle cell crisis Differential diagnosis considered not limited to sickle cell crisis, sickle cell anemia, pneumonia, chronic pain, opioid dependence, among others Physical exam: Afebrile. Mild distress A&Ox3 Head is NC/AT HEENT: mild conjunctival pallor Lungs CTA bilat RRR Blood work reveals anemia with elevated retic count. This is similar to previous results. The patient is given pain medication and states that she is feeling much better. She is asking to be discharged. She will keep the appointment with her primary doctor tomorrow and is given return precautions Laboratory Tests Test 06/20/17 13:10 White Blood Count 17.6 K/UL (4.8-10.8) H Red Blood Count 2.96 M/UL (4.20-5.40) L Hemoglobin 9.3 G/DL (12.0-16.0) L Hematocrit 28.0 % (37.0-47.0) L Mean Corpuscular Volume 95 FL (80-99) Mean Corpuscular Hemoglobin 31.5 PG (27.0-31.0) H Mean Corpuscular Hemoglobin Concent 33.4 G/DL (32.0-36.0) Red Cell Distribution Width 18.9 % (11.6-14.8) H Platelet Count 336 K/UL (150-450) Mean Platelet Volume 6.0 FL (6.5-10.1) L Neutrophils (%) (Auto) 66.9 % (45.0-75.0) Lymphocytes (%) (Auto) 24.3 % (20.0-45.0) Monocytes (%) (Auto) 6.9 % (1.0-10.0) Eosinophils (%) (Auto) 1.0 % (0.0-3.0) Basophils (%) (Auto) 0.9 % (0.0-2.0) Reticulocyte Count 4.0 % (0.0-2.0) H Urine HCG, Qualitative Negative Sodium Level 140 MMOL/L (136-145) Potassium Level 3.7 MMOL/L (3.5-5.1) Chloride Level 107 MMOL/L (98-107) Carbon Dioxide Level 25 MMOL/L (21-32) Anion Gap 8 mmol/L (5-15) Blood Urea Nitrogen 7 mg/dL (7-18) Creatinine 0.5 MG/DL (0.55-1.30) L Estimate Glomerular Filtration Rate > 60 mL/min (>60) Glucose Level 89 MG/DL (74-106) Calcium Level 9.0 MG/DL (8.5-10.1) Lab Results Impression Comparable to previous results Last Vital Signs Date Time Temp Pulse Resp B/P (MAP) Pulse Ox O2 Delivery O2 Flow Rate FiO2 06/20/17 11:30 97.9 16 115/69 98 Room Air 06/20/17 11:21 83 Status: improved Disposition: HOME, SELF-CARE Condition: Improved Referrals: NON PHYSICIAN (PCP) Patient Instructions: Sickle Cell Anemia, Adult Additional Instructions: I discussed my findings with the patient. All questions and concerns have been answered. Treatment and medication compliance have been addressed. The patient has an appointment with her primary doctor tomorrow. Return to ED if symptoms worsen, new symptoms arise, or if needed for any reason. Patient verbalized understanding of discharge instructions. JASON MIRANDA Jun 20, 2017 17:09
[2017-06-20 17:56] VITALS: BP 115/69
== END 2017-06-20 14:00 | disposition home or self-care (01) ==
LOC: EMR 11:50
DX: D57.00 Hb-SS disease with crisis, unspecified (principal); I10 Essential (primary) hypertension; J45.909 Unspecified asthma, uncomplicated; Z86.73 Personal history of transient ischemic attack (TIA), and cerebral infarction without residual deficits
CPT/HCPCS: 36415; 80048; 81025; 85025; 85044; 96374; 96375; 96376; 99284; J1170; J1200

== ENCOUNTER 2017-07-22 00:40 | Emergency (ER) | payer MEDICAID ==
[~2017-07-22] VITALS: Ht 175.3 cm; Wt 67.1 kg
--- NOTE | 2017-07-22 01:00 | Emergency Room Report ---
History of Present Illness General Chief Complaint: Back Pain-No Injury Source: Patient Present Illness HPI This 22-year-old female with history sickle cell anemia. She gets frequent exacerbation. Hasn't had one for about 2 months now. She thinks this one is exacerbated by of cough and her menstrual period. She's also scheduled for exchange transfusion in about a week. Denies any fever chills denies any nausea vomiting. Her pain been ongoing for the last 3 days. Her pain medication was helping until today. No fever or chills. No nausea or vomiting. Pain is diffuse in nature. Mostly to her back and legs. Allergies: Coded Allergies: CODEINE (Verified Allergy, Severe, 07/05/16) Throat closes up and face swells, Spoke with patient has no allery to hydromorphone KETOROLAC (Verified Allergy, Severe, 07/05/16) Throat closes up and face swells Patient History Past Medical History: see triage record, old chart reviewed, asthma, other - Sickle cell Past Surgical History: other Pertinent Family History: none Social History: Denies: smoking Last Menstrual Period: Jul Now: No Immunizations: other Reviewed Nursing Documentation: PMH: Agreed, PSxH: Agreed Nursing Documentation-PMH Hx Cardiac Problems: Yes - heart murmur,SICKLE CELL Hx Hypertension: Yes Hx Pacemaker: No Hx Asthma: Yes Hx COPD: No Hx Diabetes: No Hx Cancer: No Hx Transient Ischemic Attacks: Yes - 05/2016 Hx Dementia: No Hx Alzheimer's Disease: No Hx Parkinson's Disease: No Hx Meningitis: No Hx Encephalitis: No Hx Seizures: No Hx Epilepsy: No Hx Multiple Sclerosis: No Hx Cerebral Palsy: No Hx Amyotrophic Lat Sclerosis: No Hx Guillian-[place] Syndrome: No Hx Paralysis: No Hx Peripheral Neuropathy: No Hx Spinal Cord Injury: No Hx Head Trauma: No Hx Traumatic Brain Injury: No Hx Memory Loss: No Hx Concentration Difficulty: No Hx Tremors: No Hx Vertigo: No Hx Dizziness: No Hx Headaches: Yes Hx Weakness: Yes Review of Systems Eye: Denies: eye pain, blurred vision ENT: Denies: ear pain, nose congestion, throat swelling Respiratory: Denies: cough, shortness of breath Cardiovascular: Denies: chest pain, palpitations Gastrointestinal: Denies: abdominal pain, diarrhea, nausea, vomiting Musculoskeletal: Reports: back pain, joint pain Skin: Denies: rash Neurological: Denies: headache, numbness Endocrine: Denies: increased thirst, increased urine Hematologic/Lymphatic: Denies: easy bruising All Other Systems: negative except mentioned in HPI Physical Exam Vital Signs Date Time Temp Pulse Resp B/P (MAP) Pulse Ox O2 Delivery O2 Flow Rate FiO2 07/22/17 00:44 98.2 81 16 110/72 94 Room Air vitals normal Sp02 EP Interpretation: reviewed, normal General Appearance: well appearing, no apparent distress, alert Head: normocephalic, atraumatic Eyes: bilateral eye PERRL, bilateral eye EOMI ENT: hearing grossly normal, normal pharynx Neck: full range of motion, supple, no meningismus Respiratory: chest non-tender, lungs clear, normal breath sounds Cardiovascular #1: regular rate, rhythm, no murmur Gastrointestinal: normal bowel sounds, non tender, no mass, no organomegaly, no bruit, non-distended Musculoskeletal: back normal, gait/station normal, normal range of motion Psychiatric: mood/affect normal Skin: warm/dry Medical Decision Making Diagnostic Impression: Primary Impression: Sickle cell crisis Additional Impression: Sickle cell anemia with pain ER Course Present with sickle cell pain. No evidence of acute chest syndrome. Pain is typical for her. No evidence of bacterial infection. We'll discharge home. Last Vital Signs Date Time Temp Pulse Resp B/P (MAP) Pulse Ox O2 Delivery O2 Flow Rate FiO2 07/22/17 00:44 98.2 81 16 110/72 94 Room Air Status: improved Disposition: HOME, SELF-CARE Condition: Stable Referrals: LEONARDO TELLO (PCP) Additional Instructions: Followup with your DrLeah in 3-7 days. Return if worse. MARINA NICHOLAS M.D. Jul 22, 2017 01:00
[2017-07-22 01:09] VITALS: BP 124/76
[2017-07-22 01:42] VITALS: BP 124/76
== END 2017-07-22 01:43 | disposition home or self-care (01) ==
LOC: EMR 00:54
DX: D57.00 Hb-SS disease with crisis, unspecified (principal); I10 Essential (primary) hypertension; J45.909 Unspecified asthma, uncomplicated; Z88.6 Allergy status to analgesic agent; Z88.8 Allergy status to other drugs, medicaments and biological substances; Z86.73 Personal history of transient ischemic attack (TIA), and cerebral infarction without residual deficits
CPT/HCPCS: 96372; 99283; J1170

== ENCOUNTER 2017-08-11 01:06 | Emergency (ER) | payer MEDICAID ==
[~2017-08-11] VITALS: Ht 175.3 cm; Wt 72.6 kg
[2017-08-11] MEDS ORDERED: HYDROmorphone 1mg/ml Carpuject IM ONE (02:00)
[2017-08-11 02:16] VITALS: BP 110/62
[2017-08-11 02:27] LABS: EOSINOPHILS % (AUTO) 1.1 % (0.0-3.0); LYMPHOCYTES % (AUTO) 24.5 % (20.0-45.0); MEAN CORPUSCULAR HEMOGLOBIN 31.4 PG (27.0-31.0); MEAN CORPUSCULAR HGB CONC 33.2 G/DL (32.0-36.0); MEAN CORPUSCULAR VOLUME 95 FL (80-99); NEUTROPHILS % (AUTO) 64.4 % (45.0-75.0); PLATELET COUNT 528 K/UL (150-450); RED BLOOD COUNT 2.88 M/UL (4.20-5.40); RED CELL DISTRIBUTION WIDTH 19.2 % (11.6-14.8); WHITE BLOOD COUNT 14.3 K/UL (4.8-10.8)
[2017-08-11 02:40] LABS: ANION GAP 7 mmol/L (5-15); CALCIUM 8.3 MG/DL (8.5-10.1); CARBON DIOXIDE 25 MMOL/L (21-32); CHLORIDE 108 MMOL/L (98-107); CREATININE 0.4 MG/DL (0.55-1.30); GLOMERULAR FILTRATION RATE > 60 mL/min (>60); POTASSIUM 3.5 MMOL/L (3.5-5.1); SODIUM 140 MMOL/L (136-145)
--- NOTE | 2017-08-11 02:45 | Emergency Room Report ---
History of Present Illness General Chief Complaint: Pain Source: Patient Present Illness HPI Is a 22-year-old female with a history of sickle cell anemia. She gets frequent crisis. Last times for seizures a month ago. She presents with her sickle cell pain. Pain is diffuse in nature. To her joints. Pain medication homicidal helping. No nausea no vomiting. No fever or chills but no cough. Pain is 10 out of 10 similar to her previous pain. Allergies: Coded Allergies: CODEINE (Verified Allergy, Severe, 07/05/16) Throat closes up and face swells, Spoke with patient has no allery to hydromorphone KETOROLAC (Verified Allergy, Severe, 07/05/16) Throat closes up and face swells Patient History Past Medical History: see triage record, old chart reviewed Past Surgical History: other Pertinent Family History: none Social History: Denies: smoking Last Menstrual Period: 1 week ago Now: No Immunizations: other Reviewed Nursing Documentation: PMH: Agreed, PSxH: Agreed Nursing Documentation-PMH Hx Cardiac Problems: Yes - heart murmur,SICKLE CELL Hx Hypertension: Yes Hx Pacemaker: No Hx Asthma: Yes Hx COPD: No Hx Diabetes: No Hx Cancer: No Hx Transient Ischemic Attacks: Yes - 05/2016 Hx Dementia: No Hx Alzheimer's Disease: No Hx Parkinson's Disease: No Hx Meningitis: No Hx Encephalitis: No Hx Seizures: No Hx Epilepsy: No Hx Multiple Sclerosis: No Hx Cerebral Palsy: No Hx Amyotrophic Lat Sclerosis: No Hx Guillian-[place] Syndrome: No Hx Paralysis: No Hx Peripheral Neuropathy: No Hx Spinal Cord Injury: No Hx Head Trauma: No Hx Traumatic Brain Injury: No Hx Memory Loss: No Hx Concentration Difficulty: No Hx Tremors: No Hx Vertigo: No Hx Dizziness: No Hx Headaches: Yes Hx Weakness: Yes Review of Systems Eye: Denies: eye pain, blurred vision ENT: Denies: ear pain, nose congestion, throat swelling Respiratory: Denies: cough, shortness of breath Cardiovascular: Denies: chest pain, palpitations Gastrointestinal: Denies: abdominal pain, diarrhea, nausea, vomiting Musculoskeletal: Reports: joint pain, Denies: back pain Skin: Denies: rash Neurological: Denies: headache, numbness Endocrine: Denies: increased thirst, increased urine Hematologic/Lymphatic: Denies: easy bruising All Other Systems: negative except mentioned in HPI Physical Exam Vital Signs Date Time Temp Pulse Resp B/P (MAP) Pulse Ox O2 Delivery O2 Flow Rate FiO2 08/11/17 01:26 97.9 76 18 108/62 96 Room Air vitals normal Sp02 EP Interpretation: reviewed, normal General Appearance: well appearing, no apparent distress, alert Head: normocephalic, atraumatic Eyes: bilateral eye PERRL, bilateral eye EOMI ENT: hearing grossly normal, normal pharynx Neck: full range of motion, supple, no meningismus Respiratory: chest non-tender, lungs clear, normal breath sounds Cardiovascular #1: regular rate, rhythm, no murmur Gastrointestinal: normal bowel sounds, non tender, no mass, no organomegaly, no bruit, non-distended Musculoskeletal: back normal, gait/station normal, normal range of motion Psychiatric: mood/affect normal Skin: warm/dry Medical Decision Making Diagnostic Impression: Primary Impression: Anemia, chronic disease Additional Impressions: Sickle cell crisis Opioid dependence Qualified Codes: F11.20 - Opioid dependence, uncomplicated ER Course Patient presents with exacerbation of her chronic pain. No evidence of aplastic crisis. No evidence of acute chest syndrome. We'll discharge home. Last Vital Signs Date Time Temp Pulse Resp B/P (MAP) Pulse Ox O2 Delivery O2 Flow Rate FiO2 08/11/17 02:16 97.9 84 18 110/62 96 Room Air Status: improved Disposition: HOME, SELF-CARE Condition: Stable Referrals: NON PHYSICIAN (PCP) Additional Instructions: Followup with your Dr. in 7 days. Return if symptom worsen. Increase fluids. MARINA NICHOLAS M.D. Aug 11, 2017 02:45
[2017-08-11 02:54] VITALS: BP 114/66
[2017-08-11 02:55] VITALS: BP 114/66
== END 2017-08-11 02:56 | disposition home or self-care (01) ==
LOC: EMR 02:17
DX: D57.00 Hb-SS disease with crisis, unspecified (principal); F11.20 Opioid dependence, uncomplicated; I10 Essential (primary) hypertension; J45.909 Unspecified asthma, uncomplicated; Z86.73 Personal history of transient ischemic attack (TIA), and cerebral infarction without residual deficits
CPT/HCPCS: 36415; 80048; 85025; 85044; 96372; 99284; J1170

== ENCOUNTER 2017-08-21 08:54 | Emergency (ER) | payer MEDICAID ==
[~2017-08-21] VITALS: Ht 175.3 cm; Wt 75.7 kg
[2017-08-21] MEDS ORDERED: ADULT WAL-100 MG/5 M ORAL (09:21)
[2017-08-21 09:25] VITALS: BP 111/77
--- NOTE | 2017-08-21 12:01 | Emergency Room Report ---
History of Present Illness General Chief Complaint: Upper Respiratory Illness Source: Patient Present Illness HPI Patient is a 21-year-old female who presented after increased cough and nasal congestion. Patient prior history of sickle cell disease. She recently been given IV antibiotics. She reports having fever several days ago which had resolved had no recurrence of fever had happened. Patient denies productive cough. She denies any hematemesis or hemoptysis. Allergies: Coded Allergies: CODEINE (Verified Allergy, Severe, 07/05/16) Throat closes up and face swells, Spoke with patient has no allery to hydromorphone KETOROLAC (Verified Allergy, Severe, 07/05/16) Throat closes up and face swells Patient History Past Medical History: see triage record Last Menstrual Period: One week ago Now: No Reviewed Nursing Documentation: PMH: Agreed, PSxH: Agreed Nursing Documentation-PMH Hx Hypertension: Yes Hx Pacemaker: No Hx Asthma: Yes Hx COPD: No Hx Diabetes: No Hx Cancer: No Hx Cerebrovascular Accident: No - "Two tias" Hx Transient Ischemic Attacks: Yes - 05/2016 Hx Dementia: No Hx Alzheimer's Disease: No Hx Parkinson's Disease: No Hx Meningitis: No Hx Encephalitis: No Hx Seizures: No Hx Epilepsy: No Hx Multiple Sclerosis: No Hx Cerebral Palsy: No Hx Amyotrophic Lat Sclerosis: No Hx Guillian-[place] Syndrome: No Hx Paralysis: No Hx Peripheral Neuropathy: No Hx Spinal Cord Injury: No Hx Head Trauma: No Hx Traumatic Brain Injury: No Hx Memory Loss: No Hx Concentration Difficulty: No Hx Tremors: No Hx Vertigo: No Hx Dizziness: No Hx Headaches: Yes Hx Weakness: Yes Review of Systems All Other Systems: negative except mentioned in HPI Physical Exam Vital Signs Date Time Temp Pulse Resp B/P (MAP) Pulse Ox O2 Delivery O2 Flow Rate FiO2 08/21/17 09:00 98.4 79 18 111/77 96 Room Air 08/21/17 09:22 97 General Appearance: well appearing, no apparent distress Head: normocephalic, atraumatic ENT: hearing grossly normal, normal pharynx, no angioedema, normal voice, TMs + canals normal, uvula midline, nasal congestion Neck: full range of motion, supple, no meningismus Respiratory: lungs clear, normal breath sounds, no respiratory distress, speaking full sentences Cardiovascular #1: regular rate, rhythm Gastrointestinal: normal inspection Musculoskeletal: no calf tenderness Neurologic: normal gait Psychiatric: mood/affect normal Skin: no rash Medical Decision Making Diagnostic Impression: Primary Impression: Upper respiratory infection ER Course Patient is a 22 year old female with increased nasal congestion and cough. Differential diagnosis included but was not limited to asthma exacerbation, upper respiratory infection, pneumonia, sickle cell crisis. Patient was noted to have a benign exam and does not appear to require laboratory testing at this time. Patient is afebrile. Symptoms are consistent with a viral upper respiratory infection. Patient was given prescription for cough medication. She was advised to follow up with her primary care physician in 1-2 days for recheck. Last Vital Signs Date Time Temp Pulse Resp B/P (MAP) Pulse Ox O2 Delivery O2 Flow Rate FiO2 08/21/17 09:25 98.4 72 18 111/77 96 Room Air 08/21/17 09:22 97 Status: improved Disposition: HOME, SELF-CARE Condition: Stable Scripts Guaifenesin* (ADULT WAL-TUSSIN*) 100 Mg/5 Ml Liquid 10 ML ORAL Q4H, #120 ML Prov: Jose Antonio Dobbs 08/21/17 Referrals: NOT CHOSEN IPA/,REFERRING (PCP) Patient Instructions: Upper Respiratory Infection, Adult Jose Antonio Dobbs Aug 21, 2017 12:01
== END 2017-08-21 09:25 | disposition home or self-care (01) ==
LOC: EMR 09:25
DX: J06.9 Acute upper respiratory infection, unspecified (principal); I10 Essential (primary) hypertension; Z86.73 Personal history of transient ischemic attack (TIA), and cerebral infarction without residual deficits; Z88.6 Allergy status to analgesic agent
CPT/HCPCS: 99283

== ENCOUNTER 2017-09-06 10:56 | Emergency (ER) | payer MEDICAID ==
[~2017-09-06] VITALS: Ht 175.3 cm; Wt 73.0 kg
[~2017-09-06 10:56] MED LIST changes: +ADULT WAL-100 MG/5 M ORAL
[2017-09-06] MEDS ORDERED: DILAUDID4 MG ORAL (11:06)
[2017-09-06 11:12] VITALS: BP 112/66
[2017-09-06 13:13] VITALS: BP 112/66
--- NOTE | 2017-09-06 13:30 | Emergency Room Report ---
History of Present Illness General Chief Complaint: Pain Source: Patient Present Illness HPI 22-year-old female, history of sickle cell disease, chronic pain, on Dilaudid and Benadryl, presenting with bilateral knee pain. Patient states that she is unable to see her doctor because her doctor's office was closed, complaining of bilateral knee pain. Worse for the last week. Has still been able to walk but complaining of severe pain. Denies any chest pain shortness of breath nausea vomiting fever chills Allergies: Coded Allergies: CODEINE (Verified Allergy, Severe, 07/05/16) Throat closes up and face swells, Spoke with patient has no allery to hydromorphone KETOROLAC (Verified Allergy, Severe, 07/05/16) Throat closes up and face swells Patient History Past Medical History: see triage record Past Surgical History: none Pertinent Family History: none Last Menstrual Period: Current Reviewed Nursing Documentation: PMH: Agreed, PSxH: Agreed Nursing Documentation-PMH Hx Hypertension: Yes Hx Pacemaker: No Hx Asthma: Yes Hx COPD: No Hx Diabetes: No Hx Cancer: No Hx Cerebrovascular Accident: No - TIA Hx Transient Ischemic Attacks: Yes - 05/2016 Hx Dementia: No Hx Alzheimer's Disease: No Hx Parkinson's Disease: No Hx Meningitis: No Hx Encephalitis: No Hx Seizures: No Hx Epilepsy: No Hx Multiple Sclerosis: No Hx Cerebral Palsy: No Hx Amyotrophic Lat Sclerosis: No Hx Guillian-[place] Syndrome: No Hx Paralysis: No Hx Peripheral Neuropathy: No Hx Spinal Cord Injury: No Hx Head Trauma: No Hx Traumatic Brain Injury: No Hx Memory Loss: No Hx Concentration Difficulty: No Hx Tremors: No Hx Vertigo: No Hx Dizziness: No Hx Headaches: Yes Hx Weakness: Yes Review of Systems All Other Systems: negative except mentioned in HPI Physical Exam Vital Signs Date Time Temp Pulse Resp B/P (MAP) Pulse Ox O2 Delivery O2 Flow Rate FiO2 09/06/17 11:01 98.1 78 19 112/66 96 Room Air Sp02 EP Interpretation: reviewed, normal General Appearance: alert, GCS 15, non-toxic, mild distress Head: normocephalic, atraumatic Eyes: bilateral eye normal inspection, bilateral eye PERRL, bilateral eye EOMI ENT: normal ENT inspection, normal pharynx, normal voice, moist mucus membranes Neck: normal inspection, full range of motion, supple Respiratory: normal inspection, lungs clear, normal breath sounds, no respiratory distress, no retraction, no wheezing, speaking full sentences, chest symmetrical Cardiovascular #1: normal inspection, regular rate, rhythm, no edema, normal capillary refill Cardiovascular #2: 2+ radial (R), 2+ radial (L) Gastrointestinal: normal inspection, non tender, soft, non-distended, no guarding Musculoskeletal: normal inspection, back normal, normal range of motion, non- tender Neurologic: normal inspection, alert, oriented x3, responsive, motor strength/ tone normal, sensory intact, normal gait, speech normal Psychiatric: normal inspection, judgement/insight normal, memory normal Skin: normal inspection, normal color, no rash, warm/dry, well hydrated, normal turgor Medical Decision Making Diagnostic Impression: Primary Impression: Chronic pain ER Course 22year-old female, sickle cell disease, chronic pain, bilateral knee pain DDX: Sickle cell pain, patient is well-appearing at this time Plan: Obtain labs, including reticulocyte count, pain control ER course: Patient has remained stable during ED stay. Has been ambulatory, speaking complete sentences Patient was very angry at the long wait, did not want to wait for labs to be drawn, left AGAINST MEDICAL ADVICE to go to [facility] Disposition: Patient is clinically sober, is free from from distracting injury, and has intact judgement and capacity to decide to leave against medical advice. Patient verbalized understanding of my concern and my need to do lab work, but patient states "I don't want to wait I want to go to another hospital ". I explained to patient the risks of leaving AMA and patient informed that if they leave, they could get worse, ould become become critically ill, possibly become disabled or . Patient verbalized back to me understanding of these risks but still wants to leave. Please note that this Emergency Department Report was dictated using [employer] agent technology software, occasionally this can lead to erroneous entry secondary to interpretation by the dictation equipment Last Vital Signs Date Time Temp Pulse Resp B/P (MAP) Pulse Ox O2 Delivery O2 Flow Rate FiO2 09/06/17 11:01 98.1 78 19 112/66 96 Room Air Disposition: AGAINST MEDICAL ADVICE Condition: Stable Referrals: NON PHYSICIAN (PCP) Patient Instructions: Chronic Pain Juan Dent M.D. Sep 06, 2017 13:30
--- NOTE | 2017-09-07 11:39 | Diagnostic Imaging Report ---
Indication: Cough Technique: CHEST 1 VIEW Comparison: 05/08/2017 Findings: There is no focal airspace consolidation, pleural effusion or pneumothorax. Heart size and mediastinal contours are within normal limits and stable compared to the prior exam. A left chest wall Mediport is unchanged in position with its catheter tip in the region of the central left brachiocephalic vein. No acute osseous abnormality seen. Impression: No radiographic evidence of acute cardiopulmonary disease.
== END 2017-09-06 13:13 | disposition home or self-care (01) ==
LOC: EMR 11:45
DX: M25.562 Pain in left knee (principal); M25.561 Pain in right knee; D57.1 Sickle-cell disease without crisis; G89.29 Other chronic pain; I10 Essential (primary) hypertension; R05 Cough; Z86.73 Personal history of transient ischemic attack (TIA), and cerebral infarction without residual deficits; Z88.6 Allergy status to analgesic agent; Z88.8 Allergy status to other drugs, medicaments and biological substances
CPT/HCPCS: 71045; 99284

== ENCOUNTER 2018-08-12 09:40 | Emergency (ER) | payer MEDICAID ==
[~2018-08-12] VITALS: Ht 175.3 cm; Wt 72.6 kg
[~2018-08-12 09:40] MED LIST changes: +AMBIEN5 MG ORAL
[2018-08-12 10:03] VITALS: BP 115/74
[2018-08-12] MEDS ORDERED: DiphenhydrAMINE 50mg/ml Inj ONE (11:38)
[2018-08-12] MEDS ORDERED: Morphine Sulfate 10mg/ml Inj ONE (11:39)
[2018-08-12] MEDS ORDERED: DiphenhydrAMINE 50mg/ml Inj IVP ONE (11:45)
[2018-08-12] MEDS ORDERED: cefTRIAXone 1 GM in NS 55 ML IVPB ONE (11:45)
[2018-08-12] MEDS ORDERED: Morphine Sulfate 10mg/ml Inj IVP ONE (11:45)
[2018-08-12 11:55] LABS: ANION GAP 10 mmol/L (5-15); BLOOD UREA NITROGEN 4 mg/dL (7-18); CALCIUM 9.1 MG/DL (8.5-10.1); CARBON DIOXIDE 24 MMOL/L (21-32); CHLORIDE 105 MMOL/L (98-107); CREATININE 0.4 MG/DL (0.55-1.30); POTASSIUM 3.6 MMOL/L (3.5-5.1); SODIUM 139 MMOL/L (136-145)
[2018-08-12 12:05] LABS: ALANINE AMINOTRANSFERASE 52 U/L (12-78); ALBUMIN 3.7 G/DL (3.4-5.0); ALBUMIN/GLOBULIN RATIO 0.8 (1.0-2.7); ALKALINE PHOSPHATASE 72 U/L (46-116); ASPARTATE AMINO TRANSFERASE 49 U/L (15-37); BILIRUBIN,TOTAL 1.4 MG/DL (0.2-1.0)
[2018-08-12 12:12] LABS: BILIRUBIN,DIRECT 0.3 MG/DL (0.0-0.3)
[2018-08-12 12:39] LABS: BASOPHILS % (AUTO) 2.9 % (0.0-2.0); EOSINOPHILS % (AUTO) 1.3 % (0.0-3.0); HEMATOCRIT 27.1 % (37.0-47.0); HEMOGLOBIN 9.2 G/DL (12.0-16.0); LYMPHOCYTES % (AUTO) 25.4 % (20.0-45.0); MEAN CORPUSCULAR VOLUME 97 FL (80-99); MONOCYTES % (AUTO) 10.2 % (1.0-10.0); NEUTROPHILS % (AUTO) 60.2 % (45.0-75.0); PLATELET COUNT 530 K/UL (150-450); RED CELL DISTRIBUTION WIDTH 18.8 % (11.6-14.8)
[2018-08-12] MEDS ORDERED: AMOXICILLIN500 MG ORAL (12:57)
[2018-08-12] MEDS ORDERED: PERCOCET 5-3251 EACH ORAL (12:57)
--- NOTE | 2018-08-12 13:46 | Emergency Room Report ---
History of Present Illness General Chief Complaint: Dizziness Source: Patient Present Illness HPI Patient is a 23-year-old female who presented after increased dizziness and increased chest discomfort. Patient prior history of sickle cell disease. She reports having increased left-sided chest discomfort associated with productive cough. Patient recently hospitalized for pneumonia. She had reportedly been taking 5 days of azithromycin. She reports having some continued cough as well as increased pain to her right upper extremity. Patient states that she had recently fallen.The patient is chronically taking pain medications. She is followed by Dr. Soto. She reports having a second fall after recent x-rays have been performed. Allergies: Coded Allergies: CODEINE (Verified Allergy, Severe, 07/05/16) Throat closes up and face swells, Spoke with patient has no allery to hydromorphone KETOROLAC (Verified Allergy, Severe, 07/05/16) Throat closes up and face swells Patient History Past Medical History: see triage record Reviewed Nursing Documentation: PMH: Agreed; PSxH: Agreed Nursing Documentation-PMH Past Medical History: No History, Except For Hx Hypertension: Yes Hx Pacemaker: No Hx Asthma: Yes Hx COPD: No Hx Diabetes: No Hx Cancer: No Hx Cerebrovascular Accident: No - TIA Hx Transient Ischemic Attacks: Yes - 05/2016 Hx Dementia: No Hx Alzheimer's Disease: No Hx Parkinson's Disease: No Hx Meningitis: No Hx Encephalitis: No Hx Seizures: No Hx Epilepsy: No Hx Multiple Sclerosis: No Hx Cerebral Palsy: No Hx Amyotrophic Lat Sclerosis: No Hx Guillian-[place] Syndrome: No Hx Paralysis: No Hx Peripheral Neuropathy: No Hx Spinal Cord Injury: No Hx Head Trauma: No Hx Traumatic Brain Injury: No Hx Memory Loss: No Hx Concentration Difficulty: No Hx Tremors: No Hx Vertigo: No Hx Dizziness: No Hx Headaches: Yes Hx Weakness: Yes Review of Systems All Other Systems: negative except mentioned in HPI Physical Exam Vital Signs Date Time Temp Pulse Resp B/P (MAP) Pulse Ox O2 Delivery O2 Flow Rate FiO2 08/12/18 09:42 98.6 84 17 121/83 94 Room Air Sp02 EP Interpretation: reviewed, normal General Appearance: normal inspection, well appearing, no apparent distress, alert, GCS 15 Head: atraumatic ENT: normal ENT inspection, hearing grossly normal, normal voice Neck: normal inspection, full range of motion, supple, no bony tend Respiratory: normal inspection, lungs clear, normal breath sounds, no respiratory distress, no retraction, no wheezing Cardiovascular #1: regular rate, rhythm, no edema Gastrointestinal: normal inspection, normal bowel sounds, non tender, soft, no guarding, no hernia Genitourinary: no CVA tenderness Musculoskeletal: normal inspection, back normal, swelling - decrease rom right hand , wrist tenderness diffusely Neurologic: normal inspection, alert, responsive, speech normal Psychiatric: normal inspection, judgement/insight normal, mood/affect normal Skin: normal inspection, normal color, no rash Medical Decision Making Diagnostic Impression: Primary Impression: Sickle cell crisis Additional Impressions: Pneumonitis Wrist pain, acute ER Course Patient presented for chest pain and wrist pain. Differential diagnosis included sickle cell crisis, pneumonia, acute chest syndrome, fracture, dislocation, scapphoid fracture, sprain, ganglion cyst, septic joint , arthritis, abscess among others. Wrist Xray was ordered. Laboratory testing was no for elevated white blood count without hemoglobin. The patient's was given IV pain medications as well as IV fluids with improvement in her symptoms. Patient was advised that due to pneumonia patient should be admitted to the hospital. The patient stated that she did not want to be admitted. The patient was advised risk benefits and alternatives of leaving AGAINST MEDICAL ADVICE including worsening condition or acute chest syndrome and loss of current lifestyle. The patient continues to want to leave AGAINST MEDICAL ADVICE per she is given prescription for amoxicillin. She is advised to follow- up with Dr. Soto Labs Test 08/12/18 10:00 08/12/18 11:31 08/12/18 12:41 White Blood Count 15.0 K/UL (4.8-10.8) Red Blood Count 2.80 M/UL (4.20-5.40) Hemoglobin 9.2 G/DL (12.0-16.0) Hematocrit 27.1 % (37.0-47.0) Mean Corpuscular Volume 97 FL (80-99) Mean Corpuscular Hemoglobin 32.9 PG (27.0-31.0) Mean Corpuscular Hemoglobin Concent 33.9 G/DL (32.0-36.0) Red Cell Distribution Width 18.8 % (11.6-14.8) Platelet Count 530 K/UL (150-450) Mean Platelet Volume 5.0 FL (6.5-10.1) Neutrophils (%) (Auto) 60.2 % (45.0-75.0) Lymphocytes (%) (Auto) 25.4 % (20.0-45.0) Monocytes (%) (Auto) 10.2 % (1.0-10.0) Eosinophils (%) (Auto) 1.3 % (0.0-3.0) Basophils (%) (Auto) 2.9 % (0.0-2.0) Reticulocyte Count 14.0 % (0.0-2.0) Sodium Level 139 MMOL/L (136-145) Potassium Level 3.6 MMOL/L (3.5-5.1) Chloride Level 105 MMOL/L (98-107) Carbon Dioxide Level 24 MMOL/L (21-32) Anion Gap 10 mmol/L (5-15) Blood Urea Nitrogen 4 mg/dL (7-18) Creatinine 0.4 MG/DL (0.55-1.30) Estimat Glomerular Filtration Rate > 60 mL/min (>60) Glucose Level 99 MG/DL (74-106) Calcium Level 9.1 MG/DL (8.5-10.1) Total Bilirubin 1.4 MG/DL (0.2-1.0) Direct Bilirubin 0.3 MG/DL (0.0-0.3) Aspartate Amino Transf (AST/SGOT) 49 U/L (15-37) Alanine Aminotransferase (ALT/SGPT) 52 U/L (12-78) Alkaline Phosphatase 72 U/L (46-116) Total Protein 8.4 G/DL (6.4-8.2) Albumin 3.7 G/DL (3.4-5.0) Globulin 4.7 g/dL Albumin/Globulin Ratio 0.8 (1.0-2.7) Last Vital Signs Date Time Temp Pulse Resp B/P (MAP) Pulse Ox O2 Delivery O2 Flow Rate FiO2 08/12/18 12:57 97.4 08/12/18 10:03 73 14 Room Air 08/12/18 10:03 115/74 100 Status: improved Disposition: AGAINST MEDICAL ADVICE Condition: Stable Scripts Amoxicillin* (AMOXIL*) 500 Mg Capsule 500 MG ORAL THREE TIMES A DAY, #21 CAP Prov: Jose Antonio Dobbs MD 08/12/18 Oxycodone/Acetaminophen 5-325* (PERCOCET 5-325 MG TABLET*) 1 Each Tablet 1 TAB ORAL Q4H PRN for For Pain, #10 TAB 0 Refills Prov: Jose Antonio Dobbs MD 08/12/18 Patient Instructions: Pneumonitis Jose Antonio Dobbs MD Aug 12, 2018 13:46
[2018-08-12 19:30] VITALS: BP 105/45
== END 2018-08-12 19:30 | disposition left against medical advice (07) ==
LOC: EMR 10:23
DX: D57.00 Hb-SS disease with crisis, unspecified (principal); J18.9 Pneumonia, unspecified organism; M25.531 Pain in right wrist; I10 Essential (primary) hypertension; Z86.73 Personal history of transient ischemic attack (TIA), and cerebral infarction without residual deficits
CPT/HCPCS: 36415; 71045; 73110; 80053; 82248; 85025; 85044; 85610; 85730; 86850; 86900; 86901; 96361; 96365; 96375; 99284; J0696; J1200; J2270

== ENCOUNTER 2018-09-21 22:55 | Inpatient (IN) | payer MEDICAID ==
[~2018-09-21] VITALS: Ht 175.3 cm; Wt 73.0 kg
[~2018-09-21 22:55] MED LIST changes: +AMOXICILLIN500 MG ORAL; +PERCOCET 5-3251 EACH ORAL
[2018-09-21 22:59] VITALS: BP 115/58
--- NOTE | 2018-09-21 23:15 | NUR ---
ED Nurse Note: Patient presents with pain from sickle cell crisis.
[2018-09-21] MEDS ORDERED: Naproxen 500mg tab ORAL ONE (23:30)
[2018-09-21] MEDS ORDERED: Morphine Sulfate 4mg/ml Inj (IV/IM USE ONLY) IVP ONE (23:30)
--- NOTE | 2018-09-21 23:44 | Emergency Room Report ---
History of Present Illness General Chief Complaint: Pain Source: Patient Present Illness HPI Patient is a 23-year-old female presented after increased generalized weakness and body aches. She reports having increased diarrhea for the past few days. She reports of increased vomiting. Patient had prior history of sickle cell disease. She had also been taking inhalers as well as a recent prescription for Tamiflu. Patient had recently been seen at another facility and had been diagnosed with influenza. She had not been vomiting. She reports having subjective fever. She has been taking ibuprofen. She states the last use was last night. Patient had reportedly taken 2 doses of Tamiflu and had subsequently vomited. Allergies: Coded Allergies: CODEINE (Verified Allergy, Severe, 07/05/16) Throat closes up and face swells, Spoke with patient has no allery to hydromorphone KETOROLAC (Verified Allergy, Severe, 07/05/16) Throat closes up and face swells Patient History Past Medical History: see triage record Last Menstrual Period: 09/20/2017 Now: No : 0 Para: 0 Reviewed Nursing Documentation: PMH: Agreed; PSxH: Agreed Nursing Documentation-PMH Past Medical History: No History, Except For Hx Hypertension: Yes Hx Pacemaker: No Hx Asthma: Yes Hx COPD: No Hx Diabetes: No Hx Cancer: No Hx Cerebrovascular Accident: No - TIA Hx Transient Ischemic Attacks: Yes - 05/2016 Hx Dementia: No Hx Alzheimer's Disease: No Hx Parkinson's Disease: No Hx Meningitis: No Hx Encephalitis: No Hx Seizures: No Hx Epilepsy: No Hx Multiple Sclerosis: No Hx Cerebral Palsy: No Hx Amyotrophic Lat Sclerosis: No Hx Guillian-[place] Syndrome: No Hx Paralysis: No Hx Peripheral Neuropathy: No Hx Spinal Cord Injury: No Hx Head Trauma: No Hx Traumatic Brain Injury: No Hx Memory Loss: No Hx Concentration Difficulty: No Hx Tremors: No Hx Vertigo: No Hx Dizziness: No Hx Headaches: Yes Hx Weakness: Yes Review of Systems All Other Systems: negative except mentioned in HPI Physical Exam Vital Signs Date Time Temp Pulse Resp B/P (MAP) Pulse Ox O2 Delivery O2 Flow Rate FiO2 09/21/18 22:59 98.6 89 16 115/58 92 Room Air Sp02 EP Interpretation: reviewed, normal General Appearance: normal inspection, well appearing, alert, GCS 15, mild distress Head: atraumatic ENT: normal ENT inspection, hearing grossly normal, normal voice Neck: normal inspection, full range of motion, supple, no bony tend Respiratory: normal inspection, lungs clear, normal breath sounds, no respiratory distress, no retraction, no wheezing Cardiovascular #1: regular rate, rhythm, no edema Gastrointestinal: normal inspection, normal bowel sounds, non tender, soft, no guarding, no hernia Genitourinary: no CVA tenderness Musculoskeletal: normal inspection, back normal, normal range of motion Neurologic: normal inspection, alert, oriented x3, responsive, wood getter III-XII nml as tested, motor strength/tone normal, speech normal Psychiatric: normal inspection, judgement/insight normal, mood/affect normal Skin: normal inspection, normal color, no rash Medical Decision Making Diagnostic Impression: Primary Impression: Sickle cell disease Additional Impressions: Chronic pain Influenza ER Course Patient presented for cough and generalized weakness. Differential diagnosis include was not limited to sickle cell crisis, gastroenteritis, dehydration, influenza, acute chest syndrome among others. Because of complexity of patient' s case laboratory testing and imaging studies were ordered. Patient was noted to have a recent diagnosis of influenza. Patient had been reportedly taking Tamiflu. She appears to be somewhat ill-appearing. She was started on IV fluids as well as IV pain medication and antiemetics.Patient was given Naprosyn patient was additionally given some IV fluids and oral potassium. She was noted to be mildly hypokalemic. Patient was noted to have some anemia which is slightly below her baseline. She was typed and screened for blood. Dr. Scar Metz was contacted for inpatient management due to panel physician Labs Test 09/22/18 00:35 White Blood Count 12.3 K/UL (4.8-10.8) Red Blood Count 1.74 M/UL (4.20-5.40) Hemoglobin 6.3 G/DL (12.0-16.0) Hematocrit 16.9 % (37.0-47.0) Mean Corpuscular Volume 97 FL (80-99) Mean Corpuscular Hemoglobin 36.0 PG (27.0-31.0) Mean Corpuscular Hemoglobin Concent 37.1 G/DL (32.0-36.0) Red Cell Distribution Width 21.1 % (11.6-14.8) Platelet Count 292 K/UL (150-450) Mean Platelet Volume 6.5 FL (6.5-10.1) Neutrophils (%) (Auto) % (45.0-75.0) Lymphocytes (%) (Auto) % (20.0-45.0) Monocytes (%) (Auto) % (1.0-10.0) Eosinophils (%) (Auto) % (0.0-3.0) Basophils (%) (Auto) % (0.0-2.0) Sodium Level 138 MMOL/L (136-145) Potassium Level 3.0 MMOL/L (3.5-5.1) Chloride Level 105 MMOL/L (98-107) Carbon Dioxide Level 24 MMOL/L (21-32) Anion Gap 10 mmol/L (5-15) Blood Urea Nitrogen 5 mg/dL (7-18) Creatinine 0.5 MG/DL (0.55-1.30) Estimat Glomerular Filtration Rate > 60 mL/min (>60) Glucose Level 100 MG/DL (74-106) Calcium Level 8.2 MG/DL (8.5-10.1) Total Bilirubin 2.4 MG/DL (0.2-1.0) Direct Bilirubin 0.4 MG/DL (0.0-0.3) Aspartate Amino Transf (AST/SGOT) 97 U/L (15-37) Alanine Aminotransferase (ALT/SGPT) 88 U/L (12-78) Alkaline Phosphatase 68 U/L (46-116) Total Protein 6.7 G/DL (6.4-8.2) Albumin 3.7 G/DL (3.4-5.0) Globulin 3.0 g/dL Albumin/Globulin Ratio 1.2 (1.0-2.7) EKG Diagnostic Results Rate: normal Rhythm: NSR ST Segments: no acute changes Rhythm Strip Diag. Results EP Interpretation: yes Last Vital Signs Date Time Temp Pulse Resp B/P (MAP) Pulse Ox O2 Delivery O2 Flow Rate FiO2 09/21/18 22:59 98.6 89 16 115/58 92 Room Air Status: improved Disposition: ADMITTED INPATIENT Condition: Serious Referrals: NON PHYSICIAN (PCP) Jose Antonio Dobbs MD Sep 21, 2018 23:44
[2018-09-22 00:54] LABS: HEMATOCRIT 16.9 % (37.0-47.0); MEAN CORPUSCULAR VOLUME 97 FL (80-99); PLATELET COUNT 292 K/UL (150-450); RED BLOOD COUNT 1.74 M/UL (4.20-5.40); RED CELL DISTRIBUTION WIDTH 21.1 % (11.6-14.8); WHITE BLOOD COUNT 12.3 K/UL (4.8-10.8)
[2018-09-22 01:05] LABS: ANION GAP 10 mmol/L (5-15); BLOOD UREA NITROGEN 5 mg/dL (7-18); CALCIUM 8.2 MG/DL (8.5-10.1); CARBON DIOXIDE 24 MMOL/L (21-32); CHLORIDE 105 MMOL/L (98-107); CREATININE 0.5 MG/DL (0.55-1.30); SODIUM 138 MMOL/L (136-145)
[2018-09-22 01:16] LABS: ALANINE AMINOTRANSFERASE 88 U/L (12-78); ALBUMIN 3.7 G/DL (3.4-5.0); ALBUMIN/GLOBULIN RATIO 1.2 (1.0-2.7); ALKALINE PHOSPHATASE 68 U/L (46-116); ASPARTATE AMINO TRANSFERASE 97 U/L (15-37); BILIRUBIN,TOTAL 2.4 MG/DL (0.2-1.0)
[2018-09-22 01:21] LABS: HEMOGLOBIN 6.3 G/DL (12.0-16.0)
[2018-09-22 01:22] LABS: BILIRUBIN,DIRECT 0.4 MG/DL (0.0-0.3)
--- NOTE | 2018-09-22 02:07 | NUR ---
ED Nurse Note: Patient is resting comfortably wth no complaints.
--- NOTE | 2018-09-22 02:08 | NUR ---
ED Nurse Note: Patient was able to ambulate with steady gait, provided a urine sample.
[2018-09-22 02:18] LABS: APPEARANCE,URINE SLIGHTLY CLOUDY; BILIRUBIN, URINE NEGATIVE (NEGATIVE); GLUCOSE, URINE (UA) NEGATIVE (NEGATIVE); KETONES,URINE NEGATIVE (NEGATIVE); LEUKOCYTE ESTERASE ,URINE 2+ (NEGATIVE); NITRITE,URINE NEGATIVE (NEGATIVE); PH,URINE 7 (4.5-8.0); PROTEIN,URINE 3+ (NEGATIVE); UROBILINOGEN,URINE 1 MG/DL (0.0-1.0)
[2018-09-22 02:23] LABS: COLOR,URINE YELLOW
[2018-09-22] MEDS ORDERED: DiphenhydrAMINE 50mg/ml Inj IVP ONE (02:30)
[2018-09-22] MEDS ORDERED: Cephalexin 500mg cap ORAL ONE (02:45)
--- NOTE | 2018-09-22 02:53 | NUR ---
ED Nurse Note: PAtient resting comfortably and quietly with at her bedside.
--- NOTE | 2018-09-22 04:37 | NUR ---
ED Nurse Note: Patient cleared for transport after cleaning of room, patient A&Ox4, ambulatory with steady gait. Patient has IV at left AC on saline lock, patient accompanied by emergency spill response technician to floor. All belongings accompanied patient to the floor and were accounted for on belongings sheet.
[2018-09-22 04:40] VITALS: BP 115/58
--- NOTE | 2018-09-22 07:00 | NUR ---
NURSE NOTES: Received patient from ER via [facility] with a staff assistance. Alert and oriented x 4, ambulatory, steady. In generalized pain of 10/10. With port-a-cath on the right upper chest, with needle access, patent and flushing. Patient's blood pressure from 86/42 - 90/49. Called Dr. Metz's emergency line and left messages 3 times for admission orders, 1st 05:15, 2nd 06:00 and 3rd 06:45. Charge nurse made aware. Waiting for call back.
--- NOTE | 2018-09-22 07:40 | NUR ---
NURSE NOTES: Patient left AMA, paper signed, attached to chart. Nutter Up Kailyn colon. Left message to Dr. Metz. Needle access to port-a-cath removed.
--- NOTE | 2018-09-22 15:44 | Cardiology Report ---
APPROVED REPORT EKG Measurement Heart [id number] Normal sinus rhythm Septal infarct, age undetermined T wave abnormality, consider inferior ischemia T wave abnormality, consider anterolateral ischemia Abnormal ECG
--- NOTE | 2018-09-24 11:35 | Discharge Summary ---
Discharge Summary Discharge Summary _ DATE OF ADMISSION: 09/22/2018 DATE OF DISCHARGE: 09/22/2018 Patient signed AGAINST MEDICAL ADVICE REASON FOR ADMISSION: 23 years old female with past medical history of hypertension, TIA in 2016, sickle cell disease, presented to emergency department with generalized weakness and body aches. Patient reported diarrhea for the past few day and nonbloody nonbilious vomiting. Patient was recently prescribed Tamiflu and inhaler after she had been diagnosed in another facility with influenza. She vomited after 2 doses of Tamiflu. Currently she stopped vomiting , but reported subjective fever. Upon evaluation vital signs were stable, no fever. Pulse oximetry was stable on room air. Laboratory workup revealed leukocytosis with WBC 12.3 hemoglobin 6.3, hematocrit 15.9. Potassium 3.0 Stable other electrolytes and renal parameters. Total bili 2.4 direct bili 0.4. AST 97 , ALT 88, EKG revealed normal sinus rhythm, no acute ischemic changes. Influenza screen test was negative. Urine test was negative. Urinalysis revealed evidence of pyuria and many bacteria. Patient admitted for further management. HOSPITAL COURSE: Patient admitted to medical surgical floor and started on IV hydration. Supplemental oxygen provided need to keep pulse oximetry above 92%. Pain management was addressed as needed. Patient was typed and crossed. Potassium was replaced in the emergency department. Patient decided to sign AMA. Tthe risks and consequences of signing AGAINST MEDICAL ADVICE were discussed with patient in detail. Patient verbalized understanding, nevertheless signed AMA form and left. At the time of this dictation urine culture back with Diphtheroids, likely contaminant . FINAL DIAGNOSES: Sickle cell disease , possible crisis Anemia of sickle cell disease Recent influenza infection Hypokalemia - repleted Transaminitis - likely due to hemolysis I have been assigned to dictate discharge summary for this account. I was not involved in the patient's management. Mely Carrillo NP Sep 24, 2018 11:35
== END 2018-09-22 07:00 | disposition left against medical advice (07) | DRG 662 ==
LOC: EMR 23:14 → 4E 09-22 → EDBEDREQ 09-22 04:02
DX: D57.00 Hb-SS disease with crisis, unspecified (principal); E87.6 Hypokalemia; R74.0 Nonspecific elevation of levels of transaminase and lactic acid dehydrogenase [LDH]; Z88.6 Allergy status to analgesic agent; Z88.8 Allergy status to other drugs, medicaments and biological substances; Z86.73 Personal history of transient ischemic attack (TIA), and cerebral infarction without residual deficits; I10 Essential (primary) hypertension
CPT/HCPCS: 36415; 80053; 81001; 81025; 82248; 85007; 85025; 85044; 86710; 86850; 86900; 86901; 87086; 93005; 96361; 96374; 96375; 99285; J2405; J8499

== ENCOUNTER 2019-11-04 00:51 | Emergency (ER) | payer MEDICAID ==
[~2019-11-04] VITALS: Ht 175.3 cm; Wt 73.0 kg
--- NOTE | 2019-11-04 01:11 | Emergency Room Report ---
History of Present Illness General Chief Complaint: Chest Pain Source: Patient Present Illness HPI Disclaimer: Please note that this report is being documented using DRAGON technology. This can lead to erroneous entry secondary to incorrect interpretation by the dictating instrument. HPI: 24-year-old female history of sickle cell disease (SS type) recent diagnosis of PE not anticoagulated presents for evaluation of chest pain or shortness of breath. Symptoms began 2 days ago. She notes a midsternal chest pain and pressure that radiates to both arms as well as worsening shortness of breath. States she was at [facility] 2 weeks ago diagnosed with a pulmonary embolism. She was discharged on anticoagulants but cannot recall which ones. She states she tried to fill them but the pharmacy did not have them and therefore has not been taking them for 2 weeks. Denies fever or chills. Denies cough. She believes she is having a pain crisis. She uses Dilaudid at home. Follows with Dr. Soto. PMH: Sickle cell SS type, PE PSH: Reviewed Allergies: Toradol, codeine Social Hx: Marijuana use Allergies: Coded Allergies: CODEINE (Verified Allergy, Severe, 07/05/16) Throat closes up and face swells, Spoke with patient has no allery to hydromorphone KETOROLAC (Verified Allergy, Severe, 07/05/16) Throat closes up and face swells Patient History Last Menstrual Period: 10/2019 Nursing Documentation-PMH Hx Hypertension: Yes Hx Pacemaker: No Hx Asthma: Yes Hx COPD: No Hx Diabetes: No Hx Cancer: No Hx Cerebrovascular Accident: No - TIA Hx Transient Ischemic Attacks: Yes - 05/2016 Hx Dementia: No Hx Alzheimer's Disease: No Hx Parkinson's Disease: No Hx Meningitis: No Hx Encephalitis: No Hx Seizures: No Hx Epilepsy: No Hx Multiple Sclerosis: No Hx Cerebral Palsy: No Hx Amyotrophic Lat Sclerosis: No Hx Guillian-[place] Syndrome: No Hx Paralysis: No Hx Peripheral Neuropathy: No Hx Spinal Cord Injury: No Hx Head Trauma: No Hx Traumatic Brain Injury: No Hx Memory Loss: No Hx Concentration Difficulty: No Hx Tremors: No Hx Vertigo: No Hx Dizziness: No Hx Headaches: Yes Hx Weakness: Yes Review of Systems All Other Systems: negative except mentioned in HPI Physical Exam Vital Signs Date Time Temp Pulse Resp B/P (MAP) Pulse Ox O2 Delivery O2 Flow Rate FiO2 3/1/20 00:55 98.6 74 20 147/94 (111) 93 Room Air General: Awake and alert, tearful, appears uncomfortable HEENT: NC/AT. EOMI. Cardiovascular: RRR. S1 and S2 normal. No murmur appreciated Resp: Normal work of breathing. No cough, wheezing or crackles appreciated Abdomen: Abdomen is soft, nondistended. Nontender Skin: Intact. No abrasions, laceration or rash over the exposed skin MSK: Normal tone and bulk. Moving all extremities. No obvious deformity. Neuro: Awake and alert. Mentating appropriately. Medical Decision Making Diagnostic Impression: Primary Impression: Sickle cell anemia with pain Additional Impression: Anemia, chronic disease ER Course 24-year-old female history of sickle cell SS type and recent diagnosis of PE not currently anticoagulated presents for evaluation of chest pain shortness of breath. Saturating 93% on room air on arrival. Concern for worsening PE given her lack of anticoagulation or acute chest syndrome, sickle cell crisis to name a few. We will start IV fluids, draw labs, send patient for a CTA of the chest. Laboratory Tests Test 11/04/19 00:45 White Blood Count 14.8 K/UL (4.8-10.8) H Red Blood Count 2.12 M/UL (4.20-5.40) L Hemoglobin 7.8 G/DL (12.0-16.0) L Hematocrit 21.5 % (37.0-47.0) L Mean Corpuscular Volume 101 FL (80-99) H Mean Corpuscular Hemoglobin 36.8 PG (27.0-31.0) H Mean Corpuscular Hemoglobin Concent 36.4 G/DL (32.0-36.0) H Red Cell Distribution Width 23.3 % (11.6-14.8) H Platelet Count 469 K/UL (150-450) H Mean Platelet Volume 5.2 FL (6.5-10.1) L Neutrophils (%) (Auto) % (45.0-75.0) Lymphocytes (%) (Auto) % (20.0-45.0) Monocytes (%) (Auto) % (1.0-10.0) Eosinophils (%) (Auto) % (0.0-3.0) Basophils (%) (Auto) % (0.0-2.0) Differential Total Cells Counted 100 Neutrophils % (Manual) 50 % (45-75) Lymphocytes % (Manual) 34 % (20-45) Monocytes % (Manual) 13 % (1-10) H Eosinophils % (Manual) 1 % (0-3) Basophils % (Manual) 2 % (0-2) Band Neutrophils 0 % (0-8) Nucleated Red Blood Cells 6 /100 WBC Platelet Estimate Increased H Platelet Morphology Normal Anisocytosis 2+ Macrocytosis 1+ Sickle Cells 1+ H Acanthocytes (Spur Cells) 1+ Reticulocyte Count 10.4 % (0.5-2.0) H Prothrombin Time 12.3 SEC (9.30-11.50) H Prothrombin Time INR 1.2 (0.9-1.1) H Activated Partial Thromboplast Time 24 SEC (23-33) Urine HCG, Qualitative Negative (NEGATIVE) Sodium Level 143 MMOL/L (136-145) Potassium Level 4.0 MMOL/L (3.5-5.1) Chloride Level 109 MMOL/L (98-107) H Carbon Dioxide Level 23 MMOL/L (21-32) Anion Gap 11 mmol/L (5-15) Blood Urea Nitrogen 7 mg/dL (7-18) Creatinine 0.5 MG/DL (0.55-1.30) L Estimate Glomerular Filtration Rate > 60 mL/min (>60) Glucose Level 99 MG/DL (74-106) Calcium Level 8.9 MG/DL (8.5-10.1) Total Bilirubin 1.8 MG/DL (0.2-1.0) H Direct Bilirubin 0.3 MG/DL (0.0-0.3) Aspartate Amino Transferase (AST) 56 U/L (15-37) H Alanine Aminotransferase (ALT) 62 U/L (12-78) Alkaline Phosphatase 77 U/L (46-116) Troponin I 0.011 ng/mL (0.000-0.056) Pro-B-Type Natriuretic Peptide 114 pg/mL (0-125) Total Protein 7.0 G/DL (6.4-8.2) Albumin 3.9 G/DL (3.4-5.0) Globulin 3.1 g/dL Albumin/Globulin Ratio 1.3 (1.0-2.7) Human Chorionic Gonadotropin, Qual Negative (NEGATIVE) EKG Diagnostic Results EKG Time: 01:13 Rate: normal Rhythm: NSR ST Segments: no acute changes Other Impression Sinus rhythm, normal axis, no ST segment changes. There are inverted T waves anteriorly and laterally. Prolonged SC interval at 238 ms consistent with first -degree AV block Reevaluation Time: 04:57 Last Vital Signs Date Time Temp Pulse Resp B/P (MAP) Pulse Ox O2 Delivery O2 Flow Rate FiO2 11/04/19 00:55 98.6 74 20 147/94 (111) 93 Room Air Reevaluation Impression Labs show anemia with a hemoglobin of 7.8 and an elevated reticulocyte count at 10.4 consistent with a acute cell crisis. Bilirubin elevated at 1.8. Troponin within normal limits. CTA read by radiology is pending. While I do not interpret a large saddle PE there may be others that are more subtle. Patient is refusing hospital admission at this time. She states it is too depressing to stay in the hospital given her recent admission. She does not want a wait for the CTA results. She does not want a blood transfusion. I offered to discuss with her tafe registrar but she declined. She states she has an appointment for an outpatient blood transfusion tomorrow morning and would rather go home to be treated on an outpatient basis. I discussed at length the dangers of possibly untreated PE, anemia and acute cell crisis. These dangers included , sudden cardiac arrest, significant infection, severe morbidity. The patient verbalized understanding these and repeated them back to me. She does not want any further treatment at this time. Signed AMA form and left the ED. she left without her discharge paperwork. Disposition: AGAINST MEDICAL ADVICE Condition: Stable Tay Worley MD Nov 04, 2019 01:11
[2019-11-04] MEDS ORDERED: Morphine Sulfate 4mg/ml Inj (IV USE ONLY) IVP ONE ×2 (01:15→03:45)
[2019-11-04] MEDS ORDERED: Omnipaque 350 100ml vial INJ PRN (01:15)
--- NOTE | 2019-11-04 01:30 | NUR ---
ED Nurse Note: Patient walked into ED from home d/t mid chest pain 04/14, unrelieved by dilaudid taken prior to arrival at approximately 1830 earlier tonight. Patient aao x 4 and ambulatory. Patient placed in gown and property assessment monitor. Patient stable upon assessment.
[2019-11-04 01:57] VITALS: BP 117/67
[2019-11-04 02:05] LABS: HEMATOCRIT 21.5 % (37.0-47.0); HEMOGLOBIN 7.8 G/DL (12.0-16.0); MEAN CORPUSCULAR VOLUME 101 FL (80-99); PLATELET COUNT 469 K/UL (150-450); RED BLOOD COUNT 2.12 M/UL (4.20-5.40); RED CELL DISTRIBUTION WIDTH 23.3 % (11.6-14.8); WHITE BLOOD COUNT 14.8 K/UL (4.8-10.8)
[2019-11-04 02:10] LABS: ANION GAP 11 mmol/L (5-15); BLOOD UREA NITROGEN 7 mg/dL (7-18); CALCIUM 8.9 MG/DL (8.5-10.1); CARBON DIOXIDE 23 MMOL/L (21-32); CHLORIDE 109 MMOL/L (98-107); CREATININE 0.5 MG/DL (0.55-1.30); SODIUM 143 MMOL/L (136-145)
[2019-11-04 02:11] LABS: INR 1.2 (0.9-1.1)
[2019-11-04 02:23] LABS: ALANINE AMINOTRANSFERASE 62 U/L (12-78); ALBUMIN 3.9 G/DL (3.4-5.0); ALBUMIN/GLOBULIN RATIO 1.3 (1.0-2.7); ALKALINE PHOSPHATASE 77 U/L (46-116); ASPARTATE AMINO TRANSFERASE 56 U/L (15-37); BILIRUBIN,TOTAL 1.8 MG/DL (0.2-1.0)
[2019-11-04 02:24] LABS: BILIRUBIN,DIRECT 0.3 MG/DL (0.0-0.3)
--- NOTE | 2019-11-04 02:38 | NUR ---
ED Nurse Note: Informed ERMD regarding screen for CTA, per ERMD ok to enter orders.
--- NOTE | 2019-11-04 03:09 | NUR ---
ED Nurse Note: Patient taken to CT in stable condition.
--- NOTE | 2019-11-04 03:29 | NUR ---
ED Nurse Note: Patient returned from CT in stable condition and placed back on court monitor.
[2019-11-04 03:30] VITALS: BP 97/47
--- NOTE | 2019-11-04 03:36 | NUR ---
ED Nurse Note: Per patient, blood pressure always runs low. Patient asymptomatic and stable upon assessment.
--- NOTE | 2019-11-04 03:37 | NUR ---
ED Nurse Note: ERMD made aware of low blood pressure and pain, ERMD ordered additional fluids and pain medication.
--- NOTE | 2019-11-04 04:47 | NUR ---
ED Nurse Note: ERMD at bedside.
--- NOTE | 2019-11-04 04:50 | NUR ---
ED Nurse Note: Patient stated wanting to leave AMA, ERMD made aware and to speak to patient.
[2019-11-04 04:54] VITALS: BP 98/54
--- NOTE | 2019-11-04 04:54 | NUR ---
AMA: SEE AMA FORM.
--- NOTE | 2019-11-04 04:56 | Diagnostic Imaging Report ---
EXAM: CT Angiography Chest With Intravenous Contrast CLINICAL HISTORY: Pulmonary embolism TECHNIQUE: Axial computed tomographic angiography images of the chest with intravenous contrast. CTDI is 4.1 mGy and DLP is 140.6 mGy-cm. One or more of the following dose reduction techniques were used: automated exposure control, adjustment of the mA and/or kV according to patient size, use of iterative reconstruction technique. MIP reconstructed images were created and reviewed. Coronal and sagittal reformatted images were created and reviewed. COMPARISON: No relevant prior studies available. FINDINGS: Pulmonary arteries: The main pulmonary artery is normal in caliber (2. 1 cm). No filling defects to suggest acute pulmonary embolism allowing for incomplete opacification of the distal subsegmental vessels and partial obscuration of the retrocardiac vessels by motion. Aorta: No thoracic aortic aneurysm. Lungs: Nonspecific scattered bilateral streaky airspace opacities superimposed on relatively diffuse groundglass opacity may reflect atelectasis and scarring. Some component of consolidation or pulmonary edema not excluded. Pleural space: No pleural effusion or pneumothorax. Heart: Artery megaly without pericardial effusion. No evidence of RV dysfunction. Bones/joints: No acute fracture. No dislocation. Soft tissues: Unremarkable. Lymph nodes: Nonspecific mildly enlarged hilar lymph nodes measuring up to 1.6 cm on the left. Liver: Increased density suggests prior blood transfusions or amiodarone therapy. Primary hemochromatosis not entirely excluded. Tubes, lines and devices: Right internal jugular Port-A-Cath terminates near the cavoatrial junction. IMPRESSION: 1. No acute pulmonary embolism allowing for limited opacification of the distal subsegmental vessels and partial obscuration of the retrocardiac vessels by cardiac motion. 2. Cardiomegaly without thoracic aortic aneurysm or pericardial effusion. 3. Nonspecific scattered bilateral streaky airspace opacities superimposed on relatively diffuse groundglass opacity which may reflect a combination of subsegmental atelectasis and scarring. Some component of consolidation or pulmonary edema not excluded. Correlate clinically. 4. No pleural effusion or pneumothorax. 5. Increased hepatic density may be secondary to prior blood transfusions or amiodarone therapy. Primary hemochromatosis not entirely excluded. Correlate with patient history. 6. Nonspecific mildly enlarged hilar lymph nodes measuring up to 1.6 cm. 7. Right internal jugular Port-A-Cath terminating near the cavoatrial junction. <MYCVCSECTION> Communications: 11/04/19 05:03 Verify Receipt Verified receipt with clerk branch for Dr. Meir CARDENAS on 11/03 05:03 (-08:00)
== END 2019-11-04 05:00 | disposition left against medical advice (07) ==
LOC: EMR 01:10 → CANBEDREQ 04:59 → EMR 05:00
DX: D57.819 Other sickle-cell disorders with crisis, unspecified (principal); Z53.29 Procedure and treatment not carried out because of patient's decision for other reasons; I10 Essential (primary) hypertension; J45.909 Unspecified asthma, uncomplicated; Z86.73 Personal history of transient ischemic attack (TIA), and cerebral infarction without residual deficits; Z88.5 Allergy status to narcotic agent; Z88.8 Allergy status to other drugs, medicaments and biological substances
CPT/HCPCS: 36415; 71275; 80053; 81025; 82248; 83880; 84484; 84703; 85007; 85025; 85044; 85610; 85730; 86850; 86900; 86901; 93005; 96361; 96374; 96376; J2270; Q9967; Z7502; 99284

== ENCOUNTER 2019-12-19 17:37 | Emergency (ER) | payer MEDICAID ==
[~2019-12-19] VITALS: Ht 175.3 cm; Wt 73.0 kg
[2019-12-19] MEDS ORDERED: Morphine Sulfate 4mg/ml Inj (IV USE ONLY) IVP ONE ×2 (17:45→20:15)
[2019-12-19 17:50] VITALS: BP 155/58
--- NOTE | 2019-12-19 17:50 | NUR ---
ED Nurse Note: Pt walked into ED from home for c/o generalized body pain due to sickle cell anemia. Pt states she had an asthma attack last night and the pain started then and has been constant since. Pt also reports cough. Pt is aaox4, breathing is normal and unlabored, no cardiac distress noted. Pt placed in gown, IV line established and blood drawn by RN. PHELPS bedside.
--- NOTE | 2019-12-19 17:50 | NUR ---
ED Nurse Note: Pt also reports episode of vomiting last night.
--- NOTE | 2019-12-19 18:02 | Emergency Room Report ---
History of Present Illness General Chief Complaint: General Complaint Source: Patient Present Illness HPI Disclaimer: Please note that this report is being documented using DRAGON technology. This can lead to erroneous entry secondary to incorrect interpretation by the dictating instrument. HPI: 24-year-old female history of sickle cell disease, SS type, previous pulmonary embolism currently anticoagulated on Xarelto presenting for body wide pain, cough and shortness of breath. Symptoms began yesterday. The patient states she had a "asthma attack" and developed a cough and some shortness of breath yesterday triggering a pain crisis. Reports pressure around her chest, shortness of breath, pain in the back and in the extremities bilaterally. Somewhat consistent with her previous pain crises however she is also concerned of a possible infection. Her niece is at the home and was taken to the hospital for "infection" yesterday. She described her niece had some respiratory symptoms. She has been compliant with her Xarelto. She notes some recent diarrhea but denies vomiting or abdominal pain. Denies fever or chills. She has a recent blood transfusion and follows with Dr. Alfaro. PMH: Sickle cell SS type, PE PSH: Reviewed Allergies: Toradol, codeine Social Hx: Marijuana use Allergies: Coded Allergies: CODEINE (Verified Allergy, Severe, 07/05/16) Throat closes up and face swells, Spoke with patient has no allery to hydromorphone KETOROLAC (Verified Allergy, Severe, 07/05/16) Throat closes up and face swells COVID-19 Screening Contact w/high risk pt: No Recent Travel to affected area: No Experienced COVID-19 symptoms?: No Patient History Last Menstrual Period: 12/05/19 Now: No Nursing Documentation-PMH Hx Hypertension: Yes Hx Pacemaker: No Hx Asthma: Yes Hx COPD: No Hx Diabetes: No Hx Cancer: No Hx Cerebrovascular Accident: No - TIA Hx Transient Ischemic Attacks: Yes - 05/2016 Hx Dementia: No Hx Alzheimer's Disease: No Hx Parkinson's Disease: No Hx Meningitis: No Hx Encephalitis: No Hx Seizures: No Hx Epilepsy: No Hx Multiple Sclerosis: No Hx Cerebral Palsy: No Hx Amyotrophic Lat Sclerosis: No Hx [place] Syndrome: No Hx Paralysis: No Hx Peripheral Neuropathy: No Hx Spinal Cord Injury: No Hx Head Trauma: No Hx Traumatic Brain Injury: No Hx Memory Loss: No Hx Concentration Difficulty: No Hx Tremors: No Hx Vertigo: No Hx Dizziness: No Hx Headaches: Yes Hx Weakness: Yes Review of Systems All Other Systems: negative except mentioned in HPI Physical Exam Vital Signs Date Time Temp Pulse Resp B/P (MAP) Pulse Ox O2 Delivery O2 Flow Rate FiO2 12/19/19 17:40 97.9 99 16 155/58 (90) 97 Room Air General: Awake and alert, tearful, emotional, appears uncomfortable HEENT: NC/AT. EOMI. Cardiovascular: Borderline tachycardia. S1 and S2 normal. No murmur appreciated Resp: Normal work of breathing. No cough, wheezing or crackles appreciated Abdomen: Abdomen is soft, nondistended. Nontender Skin: Intact. No abrasions, laceration or rash over the exposed skin MSK: Normal tone and bulk. Moving all extremities. No obvious deformity. Tenderness palpation in the extremities. Neuro: Awake and alert. Mentating appropriately. Medical Decision Making Diagnostic Impression: Primary Impression: Viral syndrome Additional Impressions: Sickle cell anemia with pain Dehydration Suspected 2019 novel coronavirus infection ER Course Is a 24-year-old female history of sickle cell disease presenting for body wide pain, chest pain, shortness of breath. Differential includes was not limited to sickle cell crisis, dehydration, respiratory illness such as viral syndrome, pneumonia, bronchitis, asthma exacerbation, COVID-19, possible ACS, PE. No hypoxia and the patient has been compliant with her anticoagulation regimen. History, physical exam and patient's current medications regimen would make PE unlikely. Presentation is more consistent with viral syndrome and possible pain crises. Will start IV fluids, send EKG, chest x-ray, broad labs. Given the patient's recent respiratory symptoms and reported sick contacts there is concern for COVID-19 infection. Given her high risk status a swab was sent. Laboratory Tests Test 12/19/19 18:00 White Blood Count 13.7 K/UL (4.8-10.8) H Red Blood Count 2.73 M/UL (4.20-5.40) L Hemoglobin 9.2 G/DL (12.0-16.0) L Hematocrit 27.1 % (37.0-47.0) L Mean Corpuscular Volume 99 FL (80-99) Mean Corpuscular Hemoglobin 33.6 PG (27.0-31.0) H Mean Corpuscular Hemoglobin Concent 33.9 G/DL (32.0-36.0) Red Cell Distribution Width 19.5 % (11.6-14.8) H Platelet Count 358 K/UL (150-450) Mean Platelet Volume 6.9 FL (6.5-10.1) Neutrophils (%) (Auto) 43.7 % (45.0-75.0) L Lymphocytes (%) (Auto) 41.7 % (20.0-45.0) Monocytes (%) (Auto) 10.6 % (1.0-10.0) H Eosinophils (%) (Auto) 2.2 % (0.0-3.0) Basophils (%) (Auto) 1.9 % (0.0-2.0) Reticulocyte Count 0.6 % (0.5-2.0) Sodium Level 145 MMOL/L (136-145) Potassium Level 3.9 MMOL/L (3.5-5.1) Chloride Level 109 MMOL/L (98-107) H Carbon Dioxide Level 22 MMOL/L (21-32) Anion Gap 14 mmol/L (5-15) Blood Urea Nitrogen 13 mg/dL (7-18) Creatinine 0.6 MG/DL (0.55-1.30) Estimated Glomerular Filtration Rate > 60 mL/min (>60) Glucose Level 106 MG/DL (74-106) Calcium Level 8.8 MG/DL (8.5-10.1) Total Bilirubin 2.4 MG/DL (0.2-1.0) H Direct Bilirubin 0.4 MG/DL (0.0-0.3) H Aspartate Amino Transferase (AST) 60 U/L (15-37) H Alanine Aminotransferase (ALT) 64 U/L (12-78) Alkaline Phosphatase 88 U/L (46-116) Troponin I 0.002 ng/mL (0.000-0.056) Total Protein 7.5 G/DL (6.4-8.2) Albumin 4.3 G/DL (3.4-5.0) Globulin 3.2 g/dL Albumin/Globulin Ratio 1.3 (1.0-2.7) EKG Diagnostic Results EKG Time: 17:50 Rate: normal Rhythm: NSR ST Segments: no acute changes Other Impression Sinus rhythm, normal axis, normal intervals. There are diffuse inferior lateral T wave inversions. Overall morphology is unchanged from prior EKG on 11/04/2019. No acute ST segment changes. Rhythm Strip Diag. Results Rhythm Strip Time: 17:50 EP Interpretation: yes Rate: 76 Rhythm: NSR, no PVC's, no ectopy Chest X-Ray Diagnostic Results Chest X-Ray Diagnostic Results : Chest X-Ray Ordered: Yes # of Views/Limited/Complete: 1 View Indication: Shortness of Breath EP Interpretation: Yes Interpretation: no consolidation, no effusion, no pneumothorax, no acute cardiopulmonary disease Impression: No acute disease Electronically Signed by: Electronically signed by Dr. Tay Worley Reevaluation Time: 21:41 Last Vital Signs Date Time Temp Pulse Resp B/P (MAP) Pulse Ox O2 Delivery O2 Flow Rate FiO2 12/19/19 17:40 97.9 99 16 155/58 (90) 97 Room Air Reevaluation Impression EKG unchanged from previous and nonischemic. Chest x-ray unremarkable. Labs show anemia with a hemoglobin 9.2. Slight white count with unremarkable differential. Reticulocyte count and CMP as well as troponin are within normal limits. The patient received IV fluids and pain medication with significant improvement in her symptoms. She states she has not been drinking much water or fluids in general over the past few days. She feels well and would like to go home at this time. Will continue to isolate. I encouraged her to call her associate embalmer/funeral director first thing in the morning to discuss today's visit. She should return with any new or worsening symptoms. Disposition: HOME, SELF-CARE Condition: Improved Tay Worley MD Dec 19, 2019 18:02
--- NOTE | 2019-12-19 18:05 | NUR ---
HAND-OFF: Report given to LOPEZ Barragan. Endorsed plan of care. Pt moved to treatment room for isolation precuations. Pt has mask on.
[2019-12-19 18:33] LABS: ANION GAP 14 mmol/L (5-15); BLOOD UREA NITROGEN 13 mg/dL (7-18); CALCIUM 8.8 MG/DL (8.5-10.1); CARBON DIOXIDE 22 MMOL/L (21-32); CHLORIDE 109 MMOL/L (98-107); CREATININE 0.6 MG/DL (0.55-1.30); POTASSIUM 3.9 MMOL/L (3.5-5.1); SODIUM 145 MMOL/L (136-145)
[2019-12-19 18:44] LABS: BASOPHILS % (AUTO) 1.9 % (0.0-2.0); EOSINOPHILS % (AUTO) 2.2 % (0.0-3.0); HEMATOCRIT 27.1 % (37.0-47.0); HEMOGLOBIN 9.2 G/DL (12.0-16.0); LYMPHOCYTES % (AUTO) 41.7 % (20.0-45.0); MEAN CORPUSCULAR VOLUME 99 FL (80-99); MONOCYTES % (AUTO) 10.6 % (1.0-10.0); NEUTROPHILS % (AUTO) 43.7 % (45.0-75.0); PLATELET COUNT 358 K/UL (150-450); RED BLOOD COUNT 2.73 M/UL (4.20-5.40); RED CELL DISTRIBUTION WIDTH 19.5 % (11.6-14.8); WHITE BLOOD COUNT 13.7 K/UL (4.8-10.8)
[2019-12-19 18:45] LABS: ALANINE AMINOTRANSFERASE 64 U/L (12-78); ALBUMIN 4.3 G/DL (3.4-5.0); ALBUMIN/GLOBULIN RATIO 1.3 (1.0-2.7); ALKALINE PHOSPHATASE 88 U/L (46-116); ASPARTATE AMINO TRANSFERASE 60 U/L (15-37); BILIRUBIN,TOTAL 2.4 MG/DL (0.2-1.0)
[2019-12-19 18:51] LABS: BILIRUBIN,DIRECT 0.4 MG/DL (0.0-0.3)
[2019-12-19] MEDS ORDERED: DiphenhydrAMINE 50mg/ml Inj IVP ONE (19:00)
[2019-12-19 19:15] VITALS: BP 133/69
--- NOTE | 2019-12-19 19:15 | NUR ---
ED Nurse Note: Received report from Laurel MARROQUIN. Pt alert and oriented x4, verbally responsive. No acute distress. VSS. Will cont to monitor.
--- NOTE | 2019-12-19 19:17 | Diagnostic Imaging Report ---
EXAM: XR Chest, 1 View CLINICAL HISTORY: CP TECHNIQUE: Frontal view of the chest. COMPARISON: No relevant prior studies available. FINDINGS: Lungs: Unremarkable. No consolidation. Pleural space: No pleural effusion. No pneumothorax. Heart: Unremarkable. No cardiomegaly. Tubes, lines and devices: Right sided port overlies the right atrium. IMPRESSION: No acute findings in the chest.
[2019-12-19] MEDS ORDERED: Morphine Sulfate 4mg/ml Inj (IV USE ONLY) ONE (20:04)
--- NOTE | 2019-12-19 21:27 | NUR ---
ED Nurse Note: Pt able to walk to the restroom with steady gait.
[2019-12-19 21:50] VITALS: BP 125/72
--- NOTE | 2019-12-19 21:50 | NUR ---
ED Nurse Note: Pt cleared by ERMD for discharge. DC instructions was given and explained to pt and verbalized understanding of teachings. All medical deviecs such as ID band and IV line removed. Pt is AAO x4, ambulatory and left with all personal belongings.
== END 2019-12-19 21:50 | disposition home or self-care (01) ==
LOC: EDBD 17:55 → EMR 17:55
DX: D64.9 Anemia, unspecified (principal); D57.00 Hb-SS disease with crisis, unspecified; E86.0 Dehydration; Z86.711 Personal history of pulmonary embolism; Z88.6 Allergy status to analgesic agent; Z79.01 Long term (current) use of anticoagulants; Z88.8 Allergy status to other drugs, medicaments and biological substances; I10 Essential (primary) hypertension; Z86.73 Personal history of transient ischemic attack (TIA), and cerebral infarction without residual deficits
CPT/HCPCS: 36415; 71045; 80053; 82248; 84484; 85025; 85044; 86850; 86900; 86901; 87635; 93005; 96361; 96374; 96375; 96376; J1200; J2270; J7030; Z7502; 99284